=== PATIENT | female | born 1950 | race Caucasian/White ===

== ENCOUNTER → 2021-04-27 11:52 | Outpatient (CLI) | payer MEDICARE, SELFPAY ==
[2021-04-27 12:34] LABS: Add Manual Diff / Slide Review NO; Basophils Absolute Auto 0 /uL (0-100); Basophils Percent Auto 0.6 % (0-2); Eosinophils Absolute Auto 100 /uL (0-450); Eosinophils Percent Auto 2.2 % (2-4); Hematocrit 33.5 % (36-46); Lymphocytes Absolute Auto 2100 /uL (1100-4500); Lymphocytes Percent Auto 33.2 % (25-40); Mean Corpuscular HGB Conc 32.9 % (30-36); Mean Corpuscular Hemoglobin 26.4 PG (26-34); Mean Corpuscular Volume 80.3 fL (80-100); Monocytes Absolute Auto 400 /uL (0-900); Monocytes Percent Auto 6.5 % (3-14); Neutrophils Absolute Auto 3600 /uL (1500-7000); Neutrophils Percent Auto 57.5 % (50-75); Platelet Count 344 X10^3/uL (150-400); Red Blood Cell Count 4.17 X10^6/uL (4.0-5.2); Red Cell Distribution Width 16.1 % (11.6-14.8); White Blood Cell Count 6.4 X10^3/uL (4.5-11.0)
[2021-04-27 12:44] LABS: Hemoglobin A1C% w Est Avg Glu 5.7 % (4.0-6.0)
[2021-04-27 12:46] LABS: Alanine Aminotransferase 20 IU/L (<35); Albumin 4.2 g/dL (3.5-5.0); Albumin Globulin Ratio 1.2 (1.0-2.8); Alkaline Phosphatase 92 U/L (38-126); Aspartate Aminotransferase 29 IU/L (14-36); BUN Creatinine Ratio 21.7 (6-22); Bilirubin Total 1.1 mg/dL (0.2-1.3); Blood Urea Nitrogen 13 mg/dL (7-17); Calcium 9.7 mg/dL (8.4-10.2); Carbon Dioxide 25 mmol/L (22-32); Chloride 103 mmol/L (98-107); Cholesterol 249 mg/dL (140-199); Estimated Glomerular Filt Rate > 60.0 mL/min (>60); Globulin 3.6 g/dL (1.7-4.1); Glucose 121 mg/dL (80-110); HDL Cholesterol 60 mg/dL (40-60); HEMOLYSIS < 15 (0-50); LDL Cholesterol Calculated 157 mg/dL (<100); Potassium 4.1 mmol/L (3.4-5.1); Sodium 136 mmol/L (137-145); Total Protein 7.8 g/dL (6.3-8.2); Triglycerides 159 mg/dL (35-150)
[2021-04-27 13:01] LABS: Free T4, Direct Thyroxine 1.29 ng/dL (0.78-2.19)
[2021-04-27 13:15] LABS: Thyroid Stimulating Hormone 2.74 uIU/mL (0.47-4.68)
== END ==
PROVIDERS: PCP Family Medicine; Referring Provider Family Medicine; Visit Provider Family Medicine
DX: E03.9 Hypothyroidism, unspecified (principal); E11.9 Type 2 diabetes mellitus without complications; E78.5 Hyperlipidemia, unspecified; I10 Essential (primary) hypertension; Z76.89 Persons encountering health services in other specified circumstances
CPT/HCPCS: 36415; 80053; 80061; 83036; 84439; 84443; 85025

== ENCOUNTER 2021-07-09 20:55 | Emergency (ER) | payer MEDICARE, SELFPAY ==
[2021-07-09] VITALS (10 sets, daily range): BP systolic 141–212; BP diastolic 66–95; PULSE 73–87; RESP 12–26; TEMP 36.6; O2SAT 95–100
--- NOTE | 2021-07-09 21:09 | DI.RAD.S_ITS ---
PROCEDURE: XR CHEST 1V INDICATIONS: chest pain TECHNIQUE: One view of the chest was acquired. COMPARISON: None. FINDINGS: Surgical changes and devices: None. Lungs and pleura: Mildly increased interstitial reticular markings are seen. No focal infiltrate. No pleural effusions or pneumothorax. Mediastinum: Mediastinal contours appear normal. Heart size is normal. Bones and chest wall: No suspicious bony lesions. Overlying soft tissues appear unremarkable. IMPRESSION: No acute cardiopulmonary pathology. Likely chronic interstitial lung parenchymal disease. Dictated by: Bryan Caraballo M.D. on 07/09/2021 at 21:22 Approved by: Bryan Caraballo M.D. on 07/09/2021 at 21:24
[2021-07-09 21:14] LABS: Add Manual Diff / Slide Review NO; Basophils Absolute Auto 0 /uL (0-100); Basophils Percent Auto 0.3 % (0-2); Eosinophils Absolute Auto 100 /uL (0-450); Eosinophils Percent Auto 2.3 % (2-4); Hematocrit 35.7 % (36-46); Hemoglobin 11.8 g/dL (12.0-16.0); Lymphocytes Absolute Auto 2300 /uL (1100-4500); Lymphocytes Percent Auto 37.9 % (25-40); Mean Corpuscular HGB Conc 32.9 % (30-36); Mean Corpuscular Hemoglobin 25.9 PG (26-34); Mean Corpuscular Volume 78.9 fL (80-100); Monocytes Absolute Auto 500 /uL (0-900); Neutrophils Absolute Auto 3200 /uL (1500-7000); Neutrophils Percent Auto 51.5 % (50-75); Platelet Count 293 X10^3/uL (150-400); Red Blood Cell Count 4.53 X10^6/uL (4.0-5.2); Red Cell Distribution Width 17.4 % (11.6-14.8); White Blood Cell Count 6.2 X10^3/uL (4.5-11.0)
[2021-07-09 21:32] LABS: Alanine Aminotransferase 23 IU/L (<35); Albumin 4.4 g/dL (3.5-5.0); Albumin Globulin Ratio 1.2 (1.0-2.8); Alkaline Phosphatase 87 U/L (38-126); Aspartate Aminotransferase 32 IU/L (14-36); BUN Creatinine Ratio 17.6 (6-22); Blood Urea Nitrogen 12 mg/dL (7-17); Calcium 9.5 mg/dL (8.4-10.2); Carbon Dioxide 29 mmol/L (22-32); Chloride 100 mmol/L (98-107); Creatine Kinase 81 U/L (30-135); Estimated Glomerular Filt Rate > 60.0 mL/min (>60); Globulin 3.8 g/dL (1.7-4.1); Glucose 131 mg/dL (80-110); Lipase 78 U/L (23-300); Sodium 137 mmol/L (137-145); Total Protein 8.2 g/dL (6.3-8.2)
[2021-07-09 21:36] LABS: HEMOLYSIS 67 (0-50)
[2021-07-09 21:37] LABS: Potassium 4.4 mmol/L (3.4-5.1)
[2021-07-09 21:43] LABS: Troponin I < 0.012 ng/mL (0.01-0.034)
--- NOTE | 2021-07-09 22:59 | ED_ITS ---
HPI - Chest Pain General Chief Complaint: Chest Pain Stated Complaint: Chest pressure Time Seen by Provider: 07/09/21 21:00 Source: patient and EMS Mode of arrival: EMS History of Present Illness HPI narrative: 70-year-old woman who recently moved from [place] and is living with her adult children with diagnosis of early Alzheimer's, diabetes, hyperlipidemia, hypothyroidism pain. She denies any specific cardiac history. She states that she was sitting in her chair when all of a sudden she had 8/10 central chest pain//heaviness tightness as if there was a little child sitting on my chest without nausea or breathing difficulties. 911 was called she was given an aspirin only and by the time she was loaded into the back of the amb ulance her chest pain was 0. EKG was done and medics thought that she may have been in atrial fibrillation. Formal EKG in the emergency department has left axis deviation bundle-branch block and first-degree AV block with large P-waves she states that she has been in her usual state of health with no recent fevers, cough, chills, abdominal pain, chest pain, palpitations, orthopnea, dyspnea, lower extremity edema, diarrhea or dysuria. Related Data Home Medications Medication Instructions Recorded Confirmed ascorbic acid (vitamin C) 500 mg 500 mg PO DAILY 03/19/21 05/02/21 tablet cholecalciferol (vitamin D3) 25 25 mcg PO BID 03/19/21 05/02/21 mcg (1,000 unit) tablet cranberry 1,500 mg PO BID 03/19/21 05/02/21 levothyroxine 50 mcg tablet 50 mcg PO DAILY 03/19/21 05/02/21 lisinopril 20 mg tablet 20 mg PO DAILY 03/19/21 05/02/21 losartan 100 mg tablet 50 mg PO BID tab 03/19/21 05/02/21 magnesium 250 mg tablet 250 mg PO DAILY 03/19/21 05/02/21 metoprolol tartrate 100 mg tablet 50 mg PO BID tab 03/19/21 05/02/21 multivitamin 1 tab PO DAILY 03/19/21 05/02/21 omega-3 fatty acids PO 03/19/21 05/02/21 potassium chloride 20 mEq 20 meq PO DAILY 03/19/21 05/02/21 tablet,extended release Previous Rx's Medication Instructions Recorded furosemide 20 mg tablet 20 mg PO BID #180 tab 03/19/21 potassium chloride 10 mEq 10 meq PO DAILY #90 tab 03/19/21 tablet,extended release blood sugar diagnostic (Blood #100 ea 03/23/21 Glucose Test) blood-glucose meter #1 ea 03/23/21 lancets 33 gauge (BD Ultra Fine #100 ea 03/23/21 Lancets) metformin 1,000 mg tablet 1,000 mg PO BID #180 tab 03/23/21 pantoprazole 20 mg tablet,delayed 20 mg PO DAILY #90 tab 04/11/21 release oxybutynin chloride 5 mg 5 mg PO DAILY #90 tab 05/02/21 tablet,extended release 24 hr (Ditropan XL) pravastatin 20 mg tablet 20 mg PO BEDTIME #90 tab 05/02/21 amlodipine 10 mg tablet 10 mg PO DAILY #90 tab 06/04/21 memantine 10 mg tablet 10 mg PO BID #180 tab 06/04/21 glipizide 5 mg tablet, extended 5 mg PO DAILY #90 tab 06/14/21 release 24 hr citalopram 40 mg tablet 20 mg PO DAILY #90 tab 06/19/21 Allergies Allergy/AdvReac Type Severity Reaction Status Date / Time No Known Drug Allergies Allergy Verified 05/02/21 12:57 Review of Systems Review of Systems Narrative: Remainder of complete review of systems is otherwise unremarkable except for that included in the HPI. Patient History Medical History (Updated 07/10/21 @ 00:36 by Ifrah Mir MD) Diabetes Early onset Alzheimer's dementia HTN (hypertension) Hyperlipidemia Hypothyroidism Incontinence Sleep apnea Social History Smoking Status: Former smoker Tobacco: How many years used: 25 quit status: quit date established alcohol intake: former (Quit late ) substance use type: does not use Smoking Status: Former smoker Exam Narrative Exam Narrative: General: Morbidly obese, Healthy appearing, in no acute distress. HEENT: Moist mucous membranes, normal sclera with reactive pupils, Neck: No JVD, supple Respiratory: Lungs are clear to auscultation, no wheezing no rales no rhonchi. Full and symmetrical air movement Cardiac: Regular rate and rhythm no murmurs no bruits Abdomen: Obese,Soft, nontender, good bowel tones, no flank pain Skin: Warm and dry, no rashes Neurologic: Grossly neurologically intact with no obvious asymmetries or abnormalities Extremities: No trauma, well perfused, no lower extremity edema or chronic venous stasis changes Psych: Cooperative, appropriate insight and affect Initial Vital Signs Initial Vital Signs: Vital Signs Pulse Rate 79 07/09/21 21:01 Respiratory Rate 17 07/09/21 21:01 Pulse Oximetry 98 07/09/21 21:01 Course Orders Ordered: ED Orders 07/09/21 21:09 XR chest 1V Stat EKG-12 Lead Stat 07/09/21 21:10 Complete Blood Count AUTO DIFF Stat Comprehensive Metabolic Panel Stat Lipase Stat Troponin & CK Cardiac Panel Stat 07/09/21 23:14 Troponin I Stat Nitroglycerin (Nitroglycerin 0.4 Mg Sl Tab) 0.4 mg SL [id number] PRN PRN Reason: Chest Pain Last Admin: 07/09/21 23:59 Dose: 0.4 mg Documented by: Admin: 07/09/21 23:37 Dose: 0.4 mg Documented by: BINDU Vital Signs Vital signs: Vital Signs - 8 hr 07/09/21 21:01 07/09/21 21:09 07/09/21 21:30 Temperature 97.8 F Pulse Rate 79 87 84 Respiratory Rate 17 14 26 H Blood Pressure 174/74 H Pulse Oximetry 98 100 98 07/09/21 22:00 07/09/21 22:30 07/09/21 22:56 Temperature Pulse Rate 73 74 78 Respiratory Rate 14 15 13 Blood Pressure 141/66 H 197/81 H 197/81 H Pulse Oximetry 97 96 98 07/09/21 23:00 07/09/21 23:11 07/09/21 23:30 Temperature Pulse Rate 81 85 86 Respiratory Rate 17 16 23 Blood Pressure 212/95 H 182/76 H Pulse Oximetry 97 97 95 07/09/21 23:45 07/10/21 00:15 Temperature Pulse Rate 80 77 Respiratory Rate 12 20 Blood Pressure 165/71 H 132/60 Pulse Oximetry 96 97 MDM - Chest Pain Lab Data Result diagrams: 07/09/21 21:10 07/09/21 21:10 Labs: Lab Results 07/09/21 07/09/21 07/09/21 Range/Units 21:10 21:10 23:14 WBC 6.2 (4.5-11.0) X10^3/uL RBC 4.53 (4.0-5.2) X10^6/uL Hgb 11.8 L (12.0-16.0) g/dL Hct 35.7 L (36-46) % MCV 78.9 L (80-100) fL MCH 25.9 L (26-34) PG MCHC 32.9 (30-36) % RDW 17.4 H (11.6-14.8) % Plt Count 293 (150-400) X10^3/uL Neut % (Auto) 51.5 (50-75) % Lymph % (Auto) 37.9 (25-40) % Island % (Auto) 8.0 (3-14) % Eos % (Auto) 2.3 (2-4) % Baso % (Auto) 0.3 (0-2) % Neut # (Auto) 3200 (0748-5028) /uL Lymph # (Auto) 2300 (4157-0955) /uL Island # (Auto) 500 (0-900) /uL Eos # (Auto) 100 (0-450) /uL Baso # (Auto) 0 (0-100) /uL Sodium 137 (137-145) mmol/L Potassium 4.4 (3.4-5.1) mmol/L Chloride 100 (98-107) mmol/L Carbon Dioxide 29 (22-32) mmol/L BUN 12 (7-17) mg/dL Creatinine 0.68 (0.52-1.04) mg/dL Estimated GFR > 60.0 (>60) mL/min BUN/Creatinine Ratio 17.6 (6-22) Glucose 131 H (80-110) mg/dL Calcium 9.5 (8.4-10.2) mg/dL Total Bilirubin 1.0 (0.2-1.3) mg/dL AST 32 (14-36) IU/L ALT 23 (<35) IU/L Alkaline Phosphatase 87 (38-126) U/L Total Creatine Kinase 81 (30-135) U/L CK-MB (CK-2) TNP CK-MB (CK-2) Rel Index TNP Troponin I < 0.012 < 0.012 (0.01-0.034) ng/mL Total Protein 8.2 (6.3-8.2) g/dL Albumin 4.4 (3.5-5.0) g/dL Globulin 3.8 (1.7-4.1) g/dL Albumin/Globulin Ratio 1.2 (1.0-2.8) Lipase 78 (23-300) U/L Imaging Data Chest x-ray: Radiologist's Impression: FINDINGS:? ? Surgical changes and devices:? None.? ? Lungs and pleura:? Mildly increased interstitial reticular markings are seen.? N o focal infiltrate.? No pleural effusions or pneumothorax.? ? Mediastinum:? Mediastinal contours appear normal.? Heart size is normal.? ? Bones and chest wall:? No suspicious bony lesions.? Overlying soft tissues appear unremarkable.? ? IMPRESSION:? No acute cardiopulmonary pathology.? Likely chronic interstitial lung parenchymal disease. ? ? Dictated by: Bryan Caraballo M.D. on 07/09/2021 at 21:22? ?? ECG Data Interpretation: Sinus rhythm with first-degree block at a rate of 81 Left bundle-branch block No acute ischemic changes MDM Narrative Medical decision making narrative: 70-year-old woman with multiple risk factors for cardiac disease but no her Cardiac presentations had an episode of chest tightness while she was sitting in her recliner watching TV. She initially described as an 8/10 and it essentially resolved by the time medics arrived. Initial labs an EKG did not show significant pathology. Repeat troponin at 2:00 a.m. is equally unremarkable. At this time I do not suspect that this is acute coronary syndrome or a non STEMI. There is no evidence of infectious etiology or pulmonary embolism. She has remained pain free and quite comfortable as well as hemodynamically stable throughout her emergency room visit. Findings and co ncerns are reviewed with the patient and son and she is discharged home Discharge Plan Departure Patient Disposition: Home Clinical Impression: Atypical chest pain Instructions: DI for Atypical Chest Pain Activity Restrictions/Additional Instructions: Thank you for coming in this evening I did not find anything life-threatening to explain that episode of chest tightness/pressure that you experienced this evening. Specifically, I did not find any evidence of a heart attack, blood clot in your lungs, infection in your lungs or collapsed lung. It is safe for you to go home. Please continue all of your usual medications. I would recommend follow-up with her primary care physician in the near future. Prescriptions: No Action metformin 1,000 mg tablet 1,000 mg PO BID Qty: 180 RF: 1 (DME) blood-glucose meter Misc See Rx Instructions .ROUTE .MEDSUPPLY Qty: 1 RF: 0 (DME) lancets [BD Ultra Fine Lancets] 33 gauge misc See Rx Instructions .ROUTE .MEDSUPPLY Qty: 100 RF: 0 (DME) Blood Glucose Test Strip See Rx Instructions .ROUTE .MEDSUPPLY Qty: 100 RF: 0 pantoprazole 20 mg tablet,delayed release (DR/EC) 20 mg PO DAILY Qty: 90 RF: 2 amlodipine 10 mg tablet 10 mg PO DAILY Qty: 90 RF: 1 memantine 10 mg tablet 10 mg PO BID Qty: 180 RF: 1 glipizide 5 mg tablet extended release 24hr 5 mg PO DAILY Qty: 90 RF: 1 citalopram 40 mg tablet 20 mg PO DAILY Qty: 90 RF: 1 levothyroxine 50 mcg tablet 50 mcg PO DAILY RF: 0 Hold Instructions: Home Medication placed on hold at Doctor's office lisinopril 20 mg tablet 20 mg PO DAILY RF: 0 Hold Instructions: clarification needed potassium chloride 20 mEq tablet extended release 20 meq PO DAILY RF: 0 magnesium 250 mg tablet 250 mg PO DAILY RF: 0 metoprolol tartrate 100 mg tablet 50 mg PO BID RF: 0 losartan 100 mg tablet 50 mg PO BID RF: 0 multivitamin Tablet 1 tab PO DAILY RF: 0 ascorbic acid (vitamin C) 500 mg tablet 500 mg PO DAILY RF: 0 cholecalciferol (vitamin D3) 25 mcg (1,000 unit) tablet 25 mcg PO BID RF: 0 cranberry 1,500 mg PO BID RF: 0 omega-3 fatty acids PO RF: 0 furosemide 20 mg tablet 20 mg PO BID Qty: 180 RF: 1 Hold Instructions: Home Medication placed on hold at Doctor's office potassium chloride 10 mEq tablet extended release 10 meq PO DAILY Qty: 90 RF: 1 pravastatin 20 mg tablet 20 mg PO BEDTIME Qty: 90 RF: 3 oxybutynin chloride [Ditropan XL] 5 mg tablet extended release 24hr 5 mg PO DAILY Qty: 90 RF: 1 Referrals: Phu Canales, [Primary Care Provider] -
[2021-07-09] MEDS: NITROGLYCERIN 0.4 MG SL TAB SL ×2 (23:37→23:59)
[2021-07-09 23:50] LABS: Troponin I < 0.012 ng/mL (0.01-0.034)
[2021-07-10 00:15] VITALS: BP 132/60; PULSE 77; RESP 20; O2SAT 97
[2021-07-10 00:30] VITALS: BP 172/75; PULSE 60; RESP 12; O2SAT 96
== END 2021-07-10 00:40 | disposition home or self-care (01) ==
PROVIDERS: Emergency Provider Emergency Medicine; PCP Family Medicine
DX: R07.89 Other chest pain (principal)
CPT/HCPCS: 36415; 71045; 80053; 82550; 83690; 84484; 85025; 93005; 99284

== ENCOUNTER → 2021-11-07 11:10 | Outpatient (CLI) | payer MEDICARE, SELFPAY ==
[2021-11-07 13:05] LABS: Cholesterol 210 mg/dL (140-199); HDL Cholesterol 63 mg/dL (40-60); LDL Cholesterol Calculated 110 mg/dL (<100); Triglycerides 184 mg/dL (35-150)
== END ==
PROVIDERS: PCP Family Medicine; Referring Provider Family Medicine; Visit Provider Family Medicine
DX: E78.2 Mixed hyperlipidemia (principal)
CPT/HCPCS: 36415; 80061

== ENCOUNTER → 2022-03-04 09:58 | Outpatient (CLI) | payer MEDICARE, MEDICAID, SELFPAY ==
[2022-03-04 10:43] LABS: Appearance Urine UA CLOUDY; Bilirubin Urine UA NEGATIVE (NEGATIVE); Color Urine UA YELLOW; Glucose Urine UA NEGATIVE (Negative); Ketones Urine UA TRACE (NEGATIVE); Leukocyte Esterase Urine UA 3+ (NEGATIVE); Nitrite Urine UA POSITIVE (Negative); Occult Blood Urine UA 1+ (Negative); Protein Urine UA 1+ (Negative); Urobilinogen Urine UA 0.2 E.U./dL (0.2)
[2022-03-04 10:52] LABS: Bacteria Urine Many (>30); Culture Indicated Urine Specimen Cultured; RBC Urine 5-10/HPF (0-5/HPF); Squamous Epithelial Cell Urine 0-1 /HPF (0-5/HPF); WBC Urine 10-30/HPF (0-5/HPF)
[2022-03-04 11:05] LABS: Add Manual Diff / Slide Review NO; Basophils Absolute Auto 0 /uL (0-100); Basophils Percent Auto 0.7 % (0-2); Eosinophils Absolute Auto 200 /uL (0-450); Eosinophils Percent Auto 3.5 % (2-4); Hematocrit 37.1 % (36-46); Hemoglobin 12.8 g/dL (12.0-16.0); Lymphocytes Absolute Auto 2100 /uL (1100-4500); Lymphocytes Percent Auto 35.4 % (25-40); Mean Corpuscular HGB Conc 34.5 % (30-36); Mean Corpuscular Hemoglobin 29.2 PG (26-34); Mean Corpuscular Volume 84.7 fL (80-100); Monocytes Absolute Auto 400 /uL (0-900); Monocytes Percent Auto 7.3 % (3-14); Neutrophils Absolute Auto 3200 /uL (1500-7000); Neutrophils Percent Auto 53.1 % (50-75); Platelet Count 267 X10^3/uL (150-400); Red Blood Cell Count 4.37 X10^6/uL (4.0-5.2); Red Cell Distribution Width 14.4 % (11.6-14.8)
[2022-03-04 11:29] LABS: Creatinine Urine Random 121.3 mg/dL
[2022-03-04 11:30] LABS: Hemoglobin A1C% w Est Avg Glu 6.3 % (4.0-6.0)
[2022-03-04 11:31] LABS: Alanine Aminotransferase 22 IU/L (<35); Albumin 4.4 g/dL (3.5-5.0); Albumin Globulin Ratio 1.3 (1.0-2.8); Alkaline Phosphatase 87 U/L (38-126); Aspartate Aminotransferase 25 IU/L (14-36); BUN Creatinine Ratio 19.5 (6-22); Blood Urea Nitrogen 16 mg/dL (7-17); Calcium 9.4 mg/dL (8.4-10.2); Carbon Dioxide 26 mmol/L (22-32); Chloride 101 mmol/L (98-107); Cholesterol 194 mg/dL (140-199); Estimated Glomerular Filt Rate > 60 mL/min (>60); Globulin 3.5 g/dL (1.7-4.1); Glucose 149 mg/dL (80-110); HDL Cholesterol 51 mg/dL (40-60); HEMOLYSIS < 15 (0-50); LDL Cholesterol Calculated 110 mg/dL (<100); Potassium 4.3 mmol/L (3.4-5.1); Sodium 136 mmol/L (137-145); Total Protein 7.9 g/dL (6.3-8.2); Triglycerides 165 mg/dL (35-150)
[2022-03-04 11:33] LABS: Microalbumi Creatinin Ratio Ur 59.3 ug/mg CR (<30); Microalbumin Urine Random 7.2 mg/dL (0-1.6)
== END ==
PROVIDERS: PCP Family Medicine; Referring Provider Family Medicine; Visit Provider Family Medicine
DX: E11.9 Type 2 diabetes mellitus without complications (principal); E78.2 Mixed hyperlipidemia; I10 Essential (primary) hypertension; R30.0 Dysuria
CPT/HCPCS: 36415; 80053; 80061; 81001; 82043; 82570; 83036; 85025; 87077; 87086; 87186

== ENCOUNTER → 2022-03-12 14:36 | Outpatient (CLI) | payer MEDICARE, MEDICAID, SELFPAY | PROVIDERS: PCP Family Medicine; Referring Provider Internal Medicine Cardiovascular Disease; Visit Provider Internal Medicine Cardiovascular Disease | DX: I44.7 Left bundle-branch block, unspecified (principal) ==

== ENCOUNTER → 2022-03-12 14:48 | Outpatient (CLI) | payer MEDICARE, MEDICAID, SELFPAY ==
--- NOTE | 2022-03-12 | DI.ECHO.S_ITS ---
[facility] +---------+ [facility] +---------+ : : [address] : : : : [id number] : : : : Phone: [phone]+ Echocardiogram Report + + :Name: ANGELICA KUMAR Study Date: 03/12/2022 Height: 68 in : :[facility] ReadingLocation: Weight: 366 lb : : Gender: Female BSA: 2.6 m2 : :: 1950 Age: 71 yrs BP: 134/68 mmHg: :Reason For Study: LEFT BUNDLE-BRANCH BLOCK : :Ordering Physician: BENITEZ, : :ANILA Performed By: Aruna Lagunas : :Referring: ANILA RODRIGUEZ : + + Interpretation Summary Technically difficult study. Two IV attempts were made to use Definity without success. 1) Grossly normal size and systolic function (EF 55-60%). 2) Normal right ventricular size and function. 3) No significant valvluar abnormalities. 4) The right ventricular systolic pressure is estimated to be at least 39 mmHg based on an estimated right atrial pressure of 3 mm Hg. 5) No prior Echo available for comparison. Procedure: A two-dimensional transthoracic echocardiogram with color flow and Doppler was performed. The study quality was technically difficult. The study quality was technically limited. There is no prior echocardiogram noted for this patient. The patient was in sinus bradycardia with heart rates between 55-60 bpm during the exam. The patient had a bundle branch block rhythm during the exam. Left Ventricle: The left ventricle is grossly normal size. The left ventricular ejection fraction is grossly normal. Septal motion is consistent with conduction abnormality. Right Ventricle: The right ventricle is normal in size and function. Atria: The left atrial size is normal. Right atrial size is normal. There is no Doppler evidence for an interatrial shunt. Mitral Valve: The mitral valve is normal in structure and function. There is trace mitral regurgitation. Aortic Valve: The aortic valve opens well. There is no aortic valve stenosis. No aortic regurgitation is present. Tricuspid Valve: The tricuspid valve leaflets are thin and pliable. There is mild tricuspid regurgitation. The right ventricular systolic pressure is estimated to be at least 39 mmHg based on an estimated right atrial pressure of 3 mm Hg. Pulmonic Valve: The pulmonic valve is not well visualized. There is no pulmonic valvular regurgitation. Great Vessels: The aortic root is normal size. The dimensions of the ascending aorta are normal. The IVC is of normal diameter and collapses greater than 50% with a sniff. This suggests a low right atrial pressure of 3 mm Hg. Pericardium/ Pleura There is no pericardial effusion. There is no pleural effusion. MMode/2D Measurements & Calculations LVOT diam: 2.4 cm LA A2 area: 19.8 cm2 Ao root diam: 3.0 cm LA A4 area: 20.2 cm2 asc Aorta Diam: 3.5 cm LA length (vol): 5.5 cm Ao Arch Diam (Prox Trans): 3.1 cm LA vol: 62.1 ml LA vol index: 23.5 ml/m2 RA long axis: 4.7 cm RVD1 (basal): 3.9 cm RA area: 17.9 cm2 TAPSE: 2.4 cm RA vol: 57.7 ml RA : 21.9 ml/m2 IVC diam: 1.5 cm Doppler Measurements & Calculations Ao V2 max: 151.5 cm/sec LVOT Max Ritchie: 112.8 cm/sec Ao V2 mean: 119.6 cm/sec LV V1 max P.1 mmHg Ao max P.2 mmHg LV V1 VTI: 28.2 cm Ao mean P.1 mmHg JENNIFER(I,D): 3.2 cm2 Ao V2 VTI: 39.4 cm JENNIFER(V,D): 3.4 cm2 sev ratio: 0.72 JENNIFER indexed to BSA (cm^2/m^2): 1.2 MV E max ritchie: 84.4 cm/sec TR max ritchie: 299.3 cm/sec MV A max ritchie: 94.7 cm/sec TR max P.8 mmHg MV E/A: 0.89 PA V2 max: 125.2 cm/sec Med Peak E' Ritchie: 10.0 cm/sec PA V2 mean: 85.4 cm/sec E/E' med: 8.4 PA mean P.3 mmHg Lat Peak E' Ritchie: 14.0 cm/sec PA pr(Accel): 36.2 mmHg E/E' lat: 6.0 E/e' average: 7.2 MV dec time: 0.32 sec SV(LVOT): 127.7 ml Reading Physician:11:02 AM
== END ==
PROVIDERS: PCP Family Medicine; Referring Provider Internal Medicine Cardiovascular Disease; Visit Provider Internal Medicine Cardiovascular Disease
DX: I44.7 Left bundle-branch block, unspecified (principal)
CPT/HCPCS: 93306

== ENCOUNTER → 2022-04-11 12:10 | Outpatient (CLI) | payer MEDICARE, MEDICAID, SELFPAY ==
[2022-04-11 12:44] LABS: Appearance Urine UA SL CLOUDY; Bilirubin Urine UA NEGATIVE (NEGATIVE); Color Urine UA YELLOW; Glucose Urine UA NEGATIVE (Negative); Ketones Urine UA NEGATIVE (NEGATIVE); Leukocyte Esterase Urine UA 3+ (NEGATIVE); Nitrite Urine UA POSITIVE (Negative); Occult Blood Urine UA 1+ (Negative); Protein Urine UA NEGATIVE (Negative); Specific Gravity Urine UA <=1.005 (1.000-1.035); Urobilinogen Urine UA 0.2 E.U./dL (0.2)
[2022-04-11 13:18] LABS: pH Urine UA 6.5 (4.5-8.0)
[2022-04-11 13:19] LABS: Bacteria Urine Many (>30); Culture Indicated Urine Specimen Cultured; RBC Urine 5-10/HPF (0-5/HPF); Squamous Epithelial Cell Urine 1-5 /HPF (0-5/HPF); WBC Urine 30-100/HPF (0-5/HPF)
== END ==
PROVIDERS: PCP Family Medicine; Referring Provider Family Medicine; Visit Provider Family Medicine
DX: R39.9 Unspecified symptoms and signs involving the genitourinary system (principal)
CPT/HCPCS: 81001; 87077; 87086; 87186

== ENCOUNTER 2022-05-22 12:27 | Emergency (ER) | payer MEDICARE, MEDICAID, SELFPAY ==
[2022-05-22 12:38] VITALS: BP 149/65; PULSE 65; RESP 16; TEMP 36.4; O2SAT 96; BMI 58.5
[2022-05-22 14:46] VITALS: BP 143/65; PULSE 49; RESP 20; O2SAT 97
--- NOTE | 2022-05-22 14:47 | ED_ITS ---
HPI - Skin/Abscess/Foreign Bdy <Nida Melisa Chang, [facility] - Last Filed: 05/22/22 18:58> General Chief complaint: Skin/Abscess/Foreign Body Stated complaint: sore on Rt leg/Diabetic Time Seen by Provider: 05/22/22 14:37 Source: patient Mode of arrival: Ambulatory History of Present Illness HPI narrative: This is a 71-year-old diabetic and obese female who presents to the emergency department with a wound on her right lower leg which has been getting worse with erythema and drainage over the last week, and a persistent UTI which has been treated with 2 rounds of Bactrim. Prior urine culture shows sensitivity sulfa trimethoprim. Patient's family members state that her blood sugars have been fairly under control, she uses nystatin for erythematous areas in folds and does not have any that are problematic at this time. She has been taking her other medications as prescribed, denies any fever or chills, denies any weakness or illness sensation. She denies any nausea vomiting or difficulty walking. [facility] CLIA ID [id number] [address] [place] [address] RUN DATE: 05/22/22 Specimen Inquiry PAGE 1 RUN TIME: 1449 Name: Jessie Palacios Age/Sex: 71/F Attend Dr: Phu Canales D.O. Unit#: [id number] : 1950Location: LAB Re04/11/22 Disch: Status: REG CLI SPEC #: [id number] ISHAN: 04/11/22 STATUS: COMP REQ #: [id number] SPDESC: RECD: 04/11/[address]: Phu Canales D.O. SOURCE: UA Reflex ENTR: 04/11/22-[address]: FAX TO: ORDERED: URINE CULTURE Procedure Result Verified Site Urine Culture Final 04/13/22813 Organism 1 Escherichia coli [place] Count >100,000 CFU/ml Action to follow No Further Workup 1. Escherichia coli M.I.C. RX --------- --- * Amoxicillin/Clavulanate <=2 S * Ampicillin <=2 S * Ampicillin/Sulbactam <=2 S * Cefazolin <=4 S * Cefepime <=1 S * Ceftazidime <=1 S * Ceftriaxone <=1 S * Ciprofloxacin <=0.25 S * Ertapenem <=0.5 S * Gentamicin <=1 S * Imipenem <=0.25 S * Levofloxacin <=0.12 S * Nitrofurantoin <=16 S * Tobramycin <=1 S * Trimethoprim/Sulfamethoxazole <=20 S * Piperacillin/Tazobactam <=4 S Related Data Home Medications Medication Instructions Recorded Confirmed ascorbic acid (vitamin C) 500 mg 500 mg PO DAILY 03/19/21 11/14/21 tablet cholecalciferol (vitamin D3) 25 25 mcg PO BID 03/19/21 11/14/21 mcg (1,000 unit) tablet cranberry 1,500 mg PO BID 03/19/21 11/14/21 magnesium 250 mg tablet 250 mg PO DAILY 03/19/21 11/14/21 multivitamin 1 tab PO DAILY 03/19/21 11/14/21 Previous Rx's Medication Instructions Recorded pravastatin 20 mg tablet 20 mg PO BEDTIME #90 tabs 05/02/21 amlodipine 10 mg tablet 10 mg PO DAILY #90 tabs 06/04/21 nitroglycerin 0.4 mg sublingual 0.4 mg sublingual Q5M PRN chest 07/18/21 tablet pain #20 tabs gentamicin 0.3 % eye drops 2 drp EYE-LEFT TID #5 mL 08/14/21 ketoconazole 2 % topical cream 1 applic topical BID #60 grams 08/14/21 blood sugar diagnostic (Blood #100 ea 08/17/21 Glucose Test strips) blood-glucose meter #1 ea 08/17/21 lancets 33 gauge (BD Ultra Fine #100 ea 08/17/21 Lancets) benzonatate 100 mg capsule 100 mg PO BID PRN cough #10 caps 08/29/21 metformin 1,000 mg tablet 1,000 mg PO BID #180 tabs 09/21/21 furosemide 20 mg tablet 20 mg PO BID #180 tabs 11/13/21 lisinopril 20 mg tablet 20 mg PO BID #180 tabs 11/15/21 potassium chloride 10 mEq 10 meq PO DAILY #90 tabs 11/19/21 tablet,extended release oxybutynin chloride 5 mg 5 mg PO DAILY #90 tabs 11/20/21 tablet,extended release 24 hr (Ditropan XL) levothyroxine 50 mcg tablet 50 mcg PO DAILY #90 tabs 11/28/21 memantine 10 mg tablet 10 mg PO BID #180 tabs 12/20/21 Accessibility Ramp #1 ea 12/27/21 omega-3 fatty acids 1,250 mg 1,250 mg PO DAILY #90 caps 01/01/22 capsule citalopram 40 mg tablet 40 mg PO DAILY #90 tabs 02/08/22 losartan 100 mg tablet 50 mg PO BID #180 tabs 02/08/22 metoprolol tartrate 100 mg tablet 50 mg PO BID #180 tabs 02/08/22 sulfamethoxazole 800 1 tab PO BID #14 tabs 04/15/22 mg-trimethoprim 160 mg tablet glipizide 5 mg tablet, extended See Rx Instructions .Route 05/07/22 release 24 hr .COMPLEX #90 tabs pantoprazole 20 mg tablet,delayed See Rx Instructions .Route 05/07/22 release .COMPLEX #90 tabs nystatin 100,000 unit/gram topical 1 applic topical BID rash in 05/21/22 powder abdominal skin folds #60 grams cephalexin 500 mg capsule 500 mg PO QID 7 days #28 caps 05/22/22 doxycycline hyclate 100 mg capsule 100 mg PO BID 10 days #20 caps 05/22/22 mupirocin 2 % topical ointment 1 applic topical BID wound #15 05/22/22 grams Allergies Allergy/AdvReac Type Severity Reaction Status Date / Time No Known Drug Allergies Allergy Verified 11/14/21 16:57 Review of Systems <HEVER Vizcarra - Last Filed: 05/22/22 18:58> Review of Systems Narrative: Review of systems is negative for acute abnormalities unless otherwise noted in HPI Patient History <HEVER Vizcarra - Last Filed: 05/22/22 18:58> Medical History Conjunctivitis Diabetes Diabetic foot ulcer associated with diabetes mellitus due to underlying condition Dysuria Early onset Alzheimer's dementia HTN (hypertension) Hyperlipidemia Hypothyroidism Incontinence Sleep apnea Tinea Social History Smoking Status: Former smoker Tobacco: How many years used: 25 quit status: quit date established alcohol intake: former substance use type: does not use Smoking Status: Former smoker Substance Use Type: does not use Exam <HEVER Vizcarra - Last Filed: 05/22/22 18:58> Narrative Exam Narrative: Reviewed vitals signs and nursing notes. General: cooperative, comfortable, in no acute distress, well groomed, obese, sitting on walker, difficult for her to move around, pleasant and cooperative HEENT: symmetrical facial expressions, moist mucous membranes Cardiovascular: regular rate and rhythm, right-sided lower peripheral edema with surrounding erythema related to infected wound, warm extremities Respiratory: normal effort, able to speak in complete sentences, without wheezing, stridor, or abnormal breath sounds. No retractions or tachypnea. MSK: moves all extremities, neurovascularly intact, no weakness, normal tone, lymphedema to lower extremity, wound on medial lower right leg above medial malleolus approximately 3 in with surrounding erythema, warmth and tenderness, some discharge is coming from the wound and sent for culture. There is a scab over the wound. Skin: brisk capillary refill, without pallor or erythema Neuro: normal speech and cognition, A&O x3, ambulatory, clear speech Psych: mental status is grossly normal, congruent mood, normal affect, pleasant and cooperative Initial Vital Signs Initial Vital Signs: Vital Signs Temperature 97.5 F L 05/22/22 12:38 Pulse Rate 65 05/22/22 12:38 Respiratory Rate 16 05/22/22 12:38 Blood Pressure 149/65 H 05/22/22 12:38 Pulse Oximetry 96 05/22/22 12:38 Oxygen Delivery Method 05/22/22 12:38 <Yajaira Coleman DO - Last Filed: 05/23/22 08:13> Initial Vital Signs Initial Vital Signs: Vital Signs Temperature 97.5 F L 05/22/22 12:38 Pulse Rate 65 05/22/22 12:38 Respiratory Rate 16 05/22/22 12:38 Blood Pressure 149/65 H 05/22/22 12:38 Pulse Oximetry 96 05/22/22 12:38 Oxygen Delivery Method 05/22/22 12:38 Course <HEVER Vizcarra - Last Filed: 05/22/22 18:58> Orders Ordered: Discontinued Medications Cephalexin HCl (Cephalexin 250 Mg Capsule) 500 mg PO NOW ONE Stop: 05/22/22 15:34 Last Admin: 05/22/22 16:09 Dose: 500 mg Documented By: AMILCAR Doxycycline Hyclate (Doxycycline Hyclate 100 Mg Tablet) 100 mg PO NOW ONE Stop: 05/22/22 15:34 Last Admin: 05/22/22 16:09 Dose: 100 mg Documented By: AMILCAR Vital Signs Vital signs: Vital Signs - 8 hr 05/22/22 12:38 05/22/22 14:46 Temperature 97.5 F L Pulse Rate 65 49 L Respiratory Rate 16 20 Blood Pressure 149/65 H 143/65 H Pulse Oximetry 96 97 Oxygen Delivery Method Room Air Room Air <Yajaira Coleman DO - Last Filed: 05/23/22 08:13> Orders Ordered: Discontinued Medications Cephalexin HCl (Cephalexin 250 Mg Capsule) 500 mg PO NOW ONE Stop: 05/22/22 15:34 Last Admin: 05/22/22 16:09 Dose: 500 mg Documented By: AMILCAR Doxycycline Hyclate (Doxycycline Hyclate 100 Mg Tablet) 100 mg PO NOW ONE Stop: 05/22/22 15:34 Last Admin: 05/22/22 16:09 Dose: 100 mg Documented By: AMILCAR Vital Signs Vital signs: Vital Signs - 8 hr 05/22/22 12:38 05/22/22 14:46 Temperature 97.5 F L Pulse Rate 65 49 L Respiratory Rate 16 20 Blood Pressure 149/65 H 143/65 H Pulse Oximetry 96 97 Oxygen Delivery Method Room Air Room Air MDM - Skin/Abscess/Foreign Bdy <HEVER Vizcarra - Last Filed: 05/22/22 18:58> Lab Data Lab results narrative: Name: Jessie Palacios Age/Sex: 71/F Attend Dr: Phu Canales D.O. Unit#: [id number] : 1950Location: LAB Re04/11/22 Disch: Status: REG CLI SPEC #: [id number] ISHAN: 04/11/22 STATUS: COMP REQ #: [id number] SPDESC: RECD: 04/11/[address]: Phu Canales D.O. SOURCE: UA Reflex ENTR: 04/11/22-1320 [facility] : FAX TO: ORDERED: URINE CULTURE Procedure Result Verified Site Urine Culture Final 04/13/22813 Organism 1 Escherichia coli [place] Count >100,000 CFU/ml Action to follow No Further Workup 1. Escherichia coli M.I.C. RX --------- --- * Amoxicillin/Clavulanate <=2 S * Ampicillin <=2 S * Ampicillin/Sulbactam <=2 S * Cefazolin <=4 S * Cefepime <=1 S * Ceftazidime <=1 S * Ceftriaxone <=1 S * Ciprofloxacin <=0.25 S * Ertapenem <=0.5 S * Gentamicin <=1 S * Imipenem <=0.25 S * Levofloxacin <=0.12 S * Nitrofurantoin <=16 S * Tobramycin <=1 S * Trimethoprim/Sulfamethoxazole <=20 S * Piperacillin/Tazobactam <=4 S Labs: Urine Dip Bedside Urine Glucose Negative Bedside Urine Bilirubin - Negative Bedside Urine Ketone - Negative Urine Specific Ozan 1.020 Bedside Urine Occult Blood +/- Bedside Urine Protein - Negative Bedside Urine Urobilinogen 1+ 2mg Bedside Urine Nitrite + Positive Bedside Urine Leukocytes + 70 Esterase MDM Narrative Medical decision making narrative: This is a 71-year-old female presents to the emergency department for evaluation of a wound which she noticed 1 week ago on her right lower leg with a history of obesity, diabetes, diabetic foot ulcers, recurrent UTIs, early-onset Alzheimer's dementia, hypothyroidism, hypertension, hyperlipidemia and sleep apnea. Today on exam it appears that she has a wound with some purulence discharge, this is covered with a scab and no fluctuance or suspicion for abscess, there surrounding cellulitis with erythema up to the mid calf. Patient denies any systemic symptoms of illness including fever, weakness, fatigue, chills or nausea. Her urine was rechecked since she has had 2 courses of Bactrim over the last month for recurrent UTIs. Her urine culture shows full susceptibility and patient denies any symptoms. Her UA today shows acute cystitis recurrence with positive nitrates, blood, leukocyte esterase, wbc's and bacteria, this was sent for culture. Wound culture was obtained as well. She was treated today with doxycycline b.i.d. for the next 10 days as well as Keflex q.i.d. for the next 7 days to cover for cellulitis, recurrent cystitis with shown susceptibility to cephalosporins. Patient states she will follow-up with her PCP in 1 week for urine recheck and attempt to make an appointment at the wound care clinic where she received her previous wound care. She will follow-up with her primary care provider and return for any new or worsening symptoms including fever, fatigue, erythema which is spreading up her leg or other symptom. Patient is appropriate and amenable to discharge home. Vital signs are stable on repeat examination is unremarkable. Patient has been informed of results. Patient has been given strict return to ER precautions for any new or worsening symptoms. Patient understands to follow up closely with outpatient providers as instructed. Patient understands plan and agrees to discharge home. All questions and concerns answered at this time. <Yajaira Colmean, DO - Last Filed: 05/23/22 08:13> Lab Data Labs: Urine Dip Bedside Urine Glucose Negative Bedside Urine Bilirubin - Negative Bedside Urine Ketone - Negative Urine Specific [place]zan 1.020 Bedside Urine Occult Blood +/- Bedside Urine Protein - Negative Bedside Urine Urobilinogen 1+ 2mg Bedside Urine Nitrite + Positive Bedside Urine Leukocytes + 70 Esterase Discharge Plan Departure Patient Disposition: Home Clinical Impression: Acute recurrent cystitis, Diabetic ulcer of ankle Cellulitis Qualifiers: Site of cellulitis: extremity Site of cellulitis of extremity: lower extremity Laterality: right Qualified Code(s): L03.115 - Cellulitis of right lower limb Instructions: Diabetic Foot Ulcer, Acute Cystitis, DI for Wound Infection, Diabetes and Foot Care Activity Restrictions/Additional Instructions: *You have been diagnosed with a recurrent bladder infection and antibiotic for this is Keflex 4 times a day for 7 days, please retest at Dr. Canales's or at the walk-in clinic after your antibiotic is complete. Please use the mupirocin ointment, you can mitigate the swelling in her lower extremity with an Ki ban dage, please return to the emergency department for any new or worsening symptoms, fever, chills, spreading redness up her leg. Please follow-up with Dr. Canales for a wound care referral or call the wound care clinic and schedule another appointment. Please follow-up as needed, elevate your legs as much as possible, take your antibiotics as prescribed, and return for worsening condition. I hope you feel better soon. *What to do: *Please continue to take your regular medications as directed. [ x] New medication prescriptions sent to your pharmacy: [ [facility] [ ] New medication written as a paper prescription [ ] No new medications given *Please follow up with your primary care provider in 2-3 days, call for an appointment. Let them know you were seen in the Emergency Department and that we asked that you be seen for follow-up. We will electronically transmit a record of today's note if your PCP is in our system *If you do not have a primary care provider please contact [phone] to establish care with one of the [facility] primary care providers. *Return to Emergency Department if you should have any new, worsening, or concerning symptoms, such as [fever greater than 101F, chills, worsening pain, persistent vomiting or other bothersome symptoms]. Prescriptions: New cephalexin 500 mg capsule 500 mg PO QID 7 Days Qty: 28 0RF doxycycline hyclate 100 mg capsule 100 mg PO BID 10 Days Qty: 20 0RF mupirocin 2 % ointment 1 applic topical BID Qty: 15 0RF No Action amlodipine 10 mg tablet 10 mg PO DAILY Qty: 90 1RF (DME) Blood Glucose Test Strip See Rx Instructions .ROUTE .MEDSUPPLY Qty: 100 7RF Rx Instructions: Use to test blood glucose twice daily. (DME) lancets [BD Ultra Fine Lancets] 33 gauge misc See Rx Instructions .ROUTE .MEDSUPPLY Qty: 100 7RF Rx Instructions: Use to test blood glucose twice daily (DME) blood-glucose meter Misc See Rx Instructions .ROUTE .MEDSUPPLY Qty: 1 0RF Rx Instructions: Use to test blood glucose BID benzonatate 100 mg capsule 100 mg PO BID PRN (Reason: cough) Qty: 10 0RF metformin 1,000 mg tablet 1,000 mg PO BID Qty: 180 1RF Rx Instructions: Take with breakfast and dinner furosemide 20 mg tablet 20 mg PO BID Qty: 180 1RF Hold Instructions: Home Medication placed on hold at Doctor's office lisinopril 20 mg tablet 20 mg PO BID Qty: 180 3RF potassium chloride 10 mEq tablet extended release 10 meq PO DAILY Qty: 90 1RF oxybutynin chloride [Ditropan XL] 5 mg tablet extended release 24hr 5 mg PO DAILY Qty: 90 1RF levothyroxine 50 mcg tablet 50 mcg PO DAILY Qty: 90 0RF Hold Instructions: Home Medication placed on hold at Doctor's office memantine 10 mg tablet 10 mg PO BID Qty: 180 1RF (DME) Accessibility Ramp See Rx Instructions .Route .MEDSUPPLY Qty: 1 0RF Rx Instructions: Please provide accommodations for safe and proper access. omega-3 fatty acids 1,250 mg capsule 1,250 mg PO DAILY Qty: 90 3RF citalopram 40 mg tablet 40 mg PO DAILY Qty: 90 4RF losartan 100 mg tablet 50 mg PO BID Qty: 180 4RF metoprolol tartrate 100 mg tablet 50 mg PO BID Qty: 180 4RF sulfamethoxazole-trimethoprim 800-160 mg tablet 1 tab PO BID Qty: 14 0RF glipizide 5 mg tablet extended release 24hr See Rx Instructions .ROUTE .COMPLEX Qty: 90 1RF Dose Instruction: TAKE 1 TABLET BY MOUTH EVERY DAY Rx Instructions: TAKE 1 TABLET BY MOUTH EVERY DAY pantoprazole 20 mg tablet,delayed release (DR/EC) See Rx Instructions .ROUTE .COMPLEX Qty: 90 1RF Dose Instruction: TAKE 1 TABLET BY MOUTH EVERY DAY Rx Instructions: TAKE 1 TABLET BY MOUTH EVERY DAY nystatin 100,000 unit/gram powder 1 applic topical BID Qty: 60 1RF Rx Instructions: After washing and completing drying skin folds, apply powder to skin folds BID magnesium 250 mg tablet 250 mg PO DAILY multivitamin Tablet 1 tab PO DAILY ascorbic acid (vitamin C) 500 mg tablet 500 mg PO DAILY cholecalciferol (vitamin D3) 25 mcg (1,000 unit) tablet 25 mcg PO BID cranberry 1,500 mg PO BID nitroglycerin 0.4 mg tablet, sublingual 0.4 mg sublingual Q5M PRN (Reason: chest pain) Qty: 20 3RF Rx Instructions: do not exceed 3 doses per episode pravastatin 20 mg tablet 20 mg PO BEDTIME Qty: 90 3RF ketoconazole 2 % cream 1 applic topical BID Qty: 60 3RF gentamicin 0.3 % drops 2 drp EYE-LEFT TID Qty: 5 0RF Referrals: Phu Canales DO [Primary Care Provider] - Visit Report Forms: Patient Portal/API <Yajaira Coleman DO - Last Filed: 05/23/22 08:13> Cosign ED Attending Cosignature Attestation: I was immediately available in the department for consultation. Documentation has been reviewed. I agree with assessment and plan.
[2022-05-22] MEDS: cephALEXin 250 MG CAPSULE 500 MG PO (16:09)
[2022-05-22] MEDS: DOXYCYCLINE HYCLATE 100 MG TABLET PO (16:09)
== END 2022-05-22 16:18 | disposition home or self-care (01) ==
PROVIDERS: Emergency Provider Nurse Practitioner Critical Care Medicine; Family Provider Family Medicine; PCP Family Medicine
DX: E11.622 Type 2 diabetes mellitus with other skin ulcer (principal); L03.115 Cellulitis of right lower limb; N30.00 Acute cystitis without hematuria
CPT/HCPCS: 81003; 87070; 87075; 87077; 87147; 87186; 87205; 99283

== ENCOUNTER 2022-05-26 10:33 | Emergency (ER) | payer MEDICARE, MEDICAID, SELFPAY ==
[2022-05-26 10:47] VITALS: BP 159/68; PULSE 60; RESP 18; TEMP 36.9; O2SAT 95; BMI 58.5
--- NOTE | 2022-05-26 11:15 | ED.WOUNDLAC ---
HPI - Wound/Laceration General Chief Complaint: Wound/Laceration Stated Complaint: increased redness history of open wound Time Seen by Provider: 05/26/22 10:51 Source: patient and family Mode of arrival: Ambulatory Limitations: no limitations History of Present Illness HPI narrative: Patient is a 71-year-old female. Does have a history of dementia. Was seen here in the emergency department a couple days ago. Was diagnosed with a cellulitis/diabetic ulcer and also urinary tract infection. Has on Keflex and doxycycline and also mupirocin ointment. They were told that if the redness worsens that she needs to return to the ER. She is here with her family stating that they think that the redness around the wound is worsening. The patient states she feels okay. Not having any discomfort. Has been taking the antibiotics as directed. Related Data Home Medications Medication Instructions Recorded Confirmed ascorbic acid (vitamin C) 500 mg 500 mg PO DAILY 03/19/21 11/14/21 tablet cholecalciferol (vitamin D3) 25 25 mcg PO BID 03/19/21 11/14/21 mcg (1,000 unit) tablet cranberry 1,500 mg PO BID 03/19/21 11/14/21 magnesium 250 mg tablet 250 mg PO DAILY 03/19/21 11/14/21 multivitamin 1 tab PO DAILY 03/19/21 11/14/21 Previous Rx's Medication Instructions Recorded pravastatin 20 mg tablet 20 mg PO BEDTIME #90 tabs 05/02/21 amlodipine 10 mg tablet 10 mg PO DAILY #90 tabs 06/04/21 nitroglycerin 0.4 mg sublingual 0.4 mg sublingual Q5M PRN chest 07/18/21 tablet pain #20 tabs gentamicin 0.3 % eye drops 2 drp EYE-LEFT TID #5 mL 08/14/21 ketoconazole 2 % topical cream 1 applic topical BID #60 grams 08/14/21 blood sugar diagnostic (Blood #100 ea 08/17/21 Glucose Test strips) blood-glucose meter #1 ea 08/17/21 lancets 33 gauge (BD Ultra Fine #100 ea 08/17/21 Lancets) benzonatate 100 mg capsule 100 mg PO BID PRN cough #10 caps 08/29/21 metformin 1,000 mg tablet 1,000 mg PO BID #180 tabs 09/21/21 furosemide 20 mg tablet 20 mg PO BID #180 tabs 11/13/21 lisinopril 20 mg tablet 20 mg PO BID #180 tabs 11/15/21 potassium chloride 10 mEq 10 meq PO DAILY #90 tabs 11/19/21 tablet,extended release oxybutynin chloride 5 mg 5 mg PO DAILY #90 tabs 11/20/21 tablet,extended release 24 hr (Ditropan XL) levothyroxine 50 mcg tablet 50 mcg PO DAILY #90 tabs 11/28/21 memantine 10 mg tablet 10 mg PO BID #180 tabs 12/20/21 Accessibility Ramp #1 ea 12/27/21 omega-3 fatty acids 1,250 mg 1,250 mg PO DAILY #90 caps 01/01/22 capsule citalopram 40 mg tablet 40 mg PO DAILY #90 tabs 02/08/22 losartan 100 mg tablet 50 mg PO BID #180 tabs 02/08/22 metoprolol tartrate 100 mg tablet 50 mg PO BID #180 tabs 02/08/22 sulfamethoxazole 800 1 tab PO BID #14 tabs 04/15/22 mg-trimethoprim 160 mg tablet glipizide 5 mg tablet, extended See Rx Instructions .Route 05/07/22 release 24 hr .COMPLEX #90 tabs pantoprazole 20 mg tablet,delayed See Rx Instructions .Route 05/07/22 release .COMPLEX #90 tabs nystatin 100,000 unit/gram topical 1 applic topical BID rash in 05/21/22 powder abdominal skin folds #60 grams cephalexin 500 mg capsule 500 mg PO QID 7 days #28 caps 05/22/22 doxycycline hyclate 100 mg capsule 100 mg PO BID 10 days #20 caps 05/22/22 mupirocin 2 % topical ointment 1 applic topical BID wound #15 05/22/22 grams Allergies Allergy/AdvReac Type Severity Reaction Status Date / Time No Known Drug Allergies Allergy Verified 05/26/22 10:50 Review of Systems Constitutional Constitutional: Reports system reviewed and no additional complaints, except as documented Gastrointestinal Gastrointestinal: Reports system reviewed and no additional complaints, except as documented Integumentary/Breasts Skin/Breast: Reports system reviewed and no additional complaints, except as documented Neurologic Neurologic: Reports system reviewed and no additional complaints, except as documented Hematologic/Lymphatic On Anticoagulants: No Patient History Medical History Conjunctivitis Diabetes Diabetic foot ulcer associated with diabetes mellitus due to underlying condition Dysuria Early onset Alzheimer's dementia HTN (hypertension) Hyperlipidemia Hypothyroidism Incontinence Sleep apnea Tinea Social History Smoking Status: Former smoker Tobacco: How many years used: 25 quit status: quit date established alcohol intake: former substance use type: does not use Smoking Status: Former smoker Substance Use Type: does not use Exam Initial Vital Signs Initial Vital Signs: Vital Signs Temperature 98.5 F 05/26/22 10:47 Pulse Rate 60 05/26/22 10:47 Respiratory Rate 18 05/26/22 10:47 Blood Pressure 159/68 H 05/26/22 10:47 Pulse Oximetry 95 05/26/22 10:47 Oxygen Delivery Method 05/26/22 10:47 Const General: cooperative and comfortable Skin Other: Patient does a 2 cm x 2 cm round superficial ulceration to the medial aspect of the right mid tibia. There is an area of surrounding erythema to this. There is no drainage from the area. No fluctuance. Patient also has approximately a palm size area of redness on the anterior aspects of both shins. Patient also has what appeared to be healing ulcers at the base of bilateral great toes on the plantar aspect of the feet. No surrounding erythema. Neuro General: patient alert and patient awake Extrem Other: Patient does have large bilateral lower extremities that do not appear to be edema but more weight related Course Vital Signs Vital signs: Vital Signs - 8 hr 05/26/22 10:47 Temperature 98.5 F Pulse Rate 60 Respiratory Rate 18 Blood Pressure 159/68 H Pulse Oximetry 95 Oxygen Delivery Method Room Air MDM - Wound/Laceration MDM Narrative Medical decision making narrative: Patient is nontoxic. The ulceration on her right lower leg appears well. Review of the cultures shows that the current antibiotics that she is on should be appropriate for this infection and also her urinary tract infection. I did provide reassurance to the patient's family. I feel that the redness on the anterior aspects of both of her shins is most likely related to venous stasis and a large her legs are and not cellulitis/dermatitis. Will have the patient continue to take her current antibiotic regimen. There is no indication for admission to the hospital today. The redness around the area of ulceration was marked with a skin marker and they will return if this worsens. Discharge Plan Departure Patient Disposition: Home Clinical Impression: Cellulitis Instructions: DI for Wound Infection Activity Restrictions/Additional Instructions: Review of the cultures taken from a couple days ago show that the current antibiotic regimen is appropriate. I do recommend that she shower like normal. Recommend that she contact her primary doctor for a follow-up. Return to the emergency department for any new or worsening symptoms. Prescriptions: No Action amlodipine 10 mg tablet 10 mg PO DAILY Qty: 90 1RF (DME) Blood Glucose Test Strip See Rx Instructions .ROUTE .MEDSUPPLY Qty: 100 7RF Rx Instructions: Use to test blood glucose twice daily. (DME) lancets [BD Ultra Fine Lancets] 33 gauge misc See Rx Instructions .ROUTE .MEDSUPPLY Qty: 100 7RF Rx Instructions: Use to test blood glucose twice daily (DME) blood-glucose meter Misc See Rx Instructions .ROUTE .MEDSUPPLY Qty: 1 0RF Rx Instructions: Use to test blood glucose BID benzonatate 100 mg capsule 100 mg PO BID PRN (Reason: cough) Qty: 10 0RF metformin 1,000 mg tablet 1,000 mg PO BID Qty: 180 1RF Rx Instructions: Take with breakfast and dinner furosemide 20 mg tablet 20 mg PO BID Qty: 180 1RF Hold Instructions: Home Medication placed on hold at Doctor's office lisinopril 20 mg tablet 20 mg PO BID Qty: 180 3RF potassium chloride 10 mEq tablet extended release 10 meq PO DAILY Qty: 90 1RF oxybutynin chloride [Ditropan XL] 5 mg tablet extended release 24hr 5 mg PO DAILY Qty: 90 1RF levothyroxine 50 mcg tablet 50 mcg PO DAILY Qty: 90 0RF Hold Instructions: Home Medication placed on hold at Doctor's office memantine 10 mg tablet 10 mg PO BID Qty: 180 1RF (DME) Accessibility Ramp See Rx Instructions .Route .MEDSUPPLY Qty: 1 0RF Rx Instructions: Please provide accommodations for safe and proper access. omega-3 fatty acids 1,250 mg capsule 1,250 mg PO DAILY Qty: 90 3RF citalopram 40 mg tablet 40 mg PO DAILY Qty: 90 4RF losartan 100 mg tablet 50 mg PO BID Qty: 180 4RF metoprolol tartrate 100 mg tablet 50 mg PO BID Qty: 180 4RF sulfamethoxazole-trimethoprim 800-160 mg tablet 1 tab PO BID Qty: 14 0RF glipizide 5 mg tablet extended release 24hr See Rx Instructions .ROUTE .COMPLEX Qty: 90 1RF Dose Instruction: TAKE 1 TABLET BY MOUTH EVERY DAY Rx Instructions: TAKE 1 TABLET BY MOUTH EVERY DAY pantoprazole 20 mg tablet,delayed release (DR/EC) See Rx Instructions .ROUTE .COMPLEX Qty: 90 1RF Dose Instruction: TAKE 1 TABLET BY MOUTH EVERY DAY Rx Instructions: TAKE 1 TABLET BY MOUTH EVERY DAY nystatin 100,000 unit/gram powder 1 applic topical BID Qty: 60 1RF Rx Instructions: After washing and completing drying skin folds, apply powder to skin folds BID magnesium 250 mg tablet 250 mg PO DAILY multivitamin Tablet 1 tab PO DAILY ascorbic acid (vitamin C) 500 mg tablet 500 mg PO DAILY cholecalciferol (vitamin D3) 25 mcg (1,000 unit) tablet 25 mcg PO BID cranberry 1,500 mg PO BID nitroglycerin 0.4 mg tablet, sublingual 0.4 mg sublingual Q5M PRN (Reason: chest pain) Qty: 20 3RF Rx Instructions: do not exceed 3 doses per episode pravastatin 20 mg tablet 20 mg PO BEDTIME Qty: 90 3RF ketoconazole 2 % cream 1 applic topical BID Qty: 60 3RF gentamicin 0.3 % drops 2 drp EYE-LEFT TID Qty: 5 0RF cephalexin 500 mg capsule 500 mg PO QID 7 Days Qty: 28 0RF doxycycline hyclate 100 mg capsule 100 mg PO BID 10 Days Qty: 20 0RF mupirocin 2 % ointment 1 applic topical BID Qty: 15 0RF Referrals: Phu Canales, [Primary Care Provider] -
== END 2022-05-26 11:38 | disposition home or self-care (01) ==
PROVIDERS: Emergency Provider Emergency Medicine; Family Provider Family Medicine; PCP Family Medicine
DX: L03.115 Cellulitis of right lower limb (principal)
CPT/HCPCS: 99281

== ENCOUNTER → 2022-06-07 13:00 | Outpatient (CLI) | payer MEDICARE, MEDICAID, SELFPAY ==
[2022-06-07 14:17] LABS: Appearance Urine UA SL CLOUDY; Bilirubin Urine UA NEGATIVE (NEGATIVE); Color Urine UA YELLOW; Glucose Urine UA NEGATIVE (Negative); Ketones Urine UA NEGATIVE (NEGATIVE); Leukocyte Esterase Urine UA 3+ (NEGATIVE); Nitrite Urine UA NEGATIVE (Negative); Occult Blood Urine UA TRACE-LYSED (Negative); Protein Urine UA 2+ (Negative); Specific Gravity Urine UA <=1.005 (1.000-1.035); Urobilinogen Urine UA 0.2 E.U./dL (0.2)
[2022-06-07 14:18] LABS: pH Urine UA 8.5 (4.5-8.0)
[2022-06-07 14:40] LABS: Bacteria Urine Many (>30); RBC Urine 1-5/HPF (0-5/HPF); Squamous Epithelial Cell Urine 1-5 /HPF (0-5/HPF); WBC Urine 10-30/HPF (0-5/HPF)
[2022-06-07 14:41] LABS: Culture Indicated Urine Specimen Cultured; Triple Phosphate Crystal Urine Few
== END ==
PROVIDERS: Family Provider Family Medicine; PCP Family Medicine; Referring Provider Family Medicine; Visit Provider Family Medicine
DX: R30.0 Dysuria (principal)
CPT/HCPCS: 81001; 87077; 87086; 87186

== ENCOUNTER → 2022-06-25 14:20 | Outpatient (CLI) | payer MEDICARE, MEDICAID, SELFPAY ==
[2022-06-25 15:40] LABS: Appearance Urine UA CLEAR; Bilirubin Urine UA NEGATIVE (NEGATIVE); Color Urine UA YELLOW; Glucose Urine UA NEGATIVE (Negative); Ketones Urine UA NEGATIVE (NEGATIVE); Leukocyte Esterase Urine UA 2+ (NEGATIVE); Nitrite Urine UA NEGATIVE (Negative); Occult Blood Urine UA NEGATIVE (Negative); Protein Urine UA NEGATIVE (Negative); Specific Gravity Urine UA <=1.005 (1.000-1.035); Urobilinogen Urine UA 0.2 E.U./dL (0.2)
[2022-06-25 15:44] LABS: pH Urine UA 6.5 (4.5-8.0)
[2022-06-25 16:04] LABS: Bacteria Urine None Seen; Culture Indicated Urine Specimen Cultured; RBC Urine None Seen (0-5/HPF); Squamous Epithelial Cell Urine 1-5 /HPF (0-5/HPF); WBC Urine 1-5/HPF (0-5/HPF)
== END ==
PROVIDERS: Family Provider Family Medicine; PCP Family Medicine; Referring Provider Family Medicine; Visit Provider Family Medicine
DX: N39.0 Urinary tract infection, site not specified (principal)
CPT/HCPCS: 81001; 87077; 87086; 87186

== ENCOUNTER 2022-06-27 17:38 | Emergency (ER) | payer MEDICARE, MEDICAID, SELFPAY ==
[2022-06-27] VITALS (16 sets, daily range): BP systolic 129–199; BP diastolic 60–105; PULSE 55–64; RESP 10–35; TEMP 36.2; O2SAT 94–99; BMI 58.5
[2022-06-27 18:37] LABS: Add Manual Diff / Slide Review NO; Basophils Absolute Auto 100 /uL (0-100); Eosinophils Absolute Auto 300 /uL (0-450); Eosinophils Percent Auto 4.5 % (2-4); Hemoglobin 13.6 g/dL (12.0-16.0); Lymphocytes Absolute Auto 1500 /uL (1100-4500); Lymphocytes Percent Auto 25.2 % (25-40); Mean Corpuscular Hemoglobin 29.4 PG (26-34); Mean Corpuscular Volume 86.6 fL (80-100); Monocytes Absolute Auto 500 /uL (0-900); Monocytes Percent Auto 8.2 % (3-14); Neutrophils Absolute Auto 3500 /uL (1500-7000); Neutrophils Percent Auto 61.1 % (50-75); Platelet Count 269 X10^3/uL (150-400); Red Blood Cell Count 4.61 X10^6/uL (4.0-5.2); Red Cell Distribution Width 13.5 % (11.6-14.8); White Blood Cell Count 5.8 X10^3/uL (4.5-11.0)
[2022-06-27 18:53] LABS: Alanine Aminotransferase 24 IU/L (<35); Albumin 4.5 g/dL (3.5-5.0); Albumin Globulin Ratio 1.1 (1.0-2.8); Alkaline Phosphatase 96 U/L (38-126); Aspartate Aminotransferase 28 IU/L (14-36); BUN Creatinine Ratio 17.9 (6-22); Bilirubin Total 1.3 mg/dL (0.2-1.3); Blood Urea Nitrogen 14 mg/dL (7-17); Calcium 9.9 mg/dL (8.4-10.2); Carbon Dioxide 29 mmol/L (22-32); Chloride 98 mmol/L (98-107); Estimated Glomerular Filt Rate > 60 mL/min (>60); Globulin 4.2 g/dL (1.7-4.1); Glucose 113 mg/dL (80-110); HEMOLYSIS < 15 (0-50); Potassium 4.8 mmol/L (3.4-5.1); Sodium 136 mmol/L (137-145); Total Protein 8.7 g/dL (6.3-8.2)
[2022-06-27 20:48] LABS: Hematocrit 38.3 % (36-46); Hemoglobin 13.2 g/dL (12.0-16.0)
--- NOTE | 2022-06-27 21:18 | ED.GIBLEED ---
HPI - GI Bleed General Chief complaint: GI Bleed Stated complaint: FELL IN FRONT OF HOSPITAL /BLEEDING FROM BOTTOM Time Seen by Provider: 06/27/22 19:11 Source: patient and family Mode of arrival: Wheelchair Limitations: no limitations History of Present Illness HPI Narrative: Patient is a 71-year-old female. She was coming to the hospital to a doctor's office visit that was scheduled. She fell while entering into the hospital. She reports no injuries from the fall. She went to the doctor's office visit. Was diagnosed with a chronic urinary tract infection and hematuria. Her way out of the doctor's office visit was reported that she would use the restroom. There was concern from the family about bleeding from her rectum. The patient states that she thinks that it was coming from her urine. They came to the emergency department. Her briefs had to be changed 1 further time while in the waiting room. The family is convinced that it is coming from her GI tract and not her urine. The patient reports no injuries from the fall. She has no abdominal pain. No blood thinners listed on her medicine list. She states that she is not had any problems with her bowel movements. Not constipated. No diarrhea. Related Data Home Medications Medication Instructions Recorded Confirmed ascorbic acid (vitamin C) 500 mg 500 mg PO DAILY 03/19/21 06/27/22 tablet cholecalciferol (vitamin D3) 25 25 mcg PO BID 03/19/21 06/27/22 mcg (1,000 unit) tablet cranberry 1,500 mg PO BID 03/19/21 06/27/22 magnesium 250 mg tablet 250 mg PO DAILY 03/19/21 06/27/22 multivitamin 1 tab PO DAILY 03/19/21 06/27/22 Previous Rx's Medication Instructions Recorded amlodipine 10 mg tablet 10 mg PO DAILY #90 tabs 06/04/21 nitroglycerin 0.4 mg sublingual 0.4 mg sublingual Q5M PRN chest 07/18/21 tablet pain #20 tabs gentamicin 0.3 % eye drops 2 drp EYE-LEFT TID #5 mL 08/14/21 ketoconazole 2 % topical cream 1 applic topical BID #60 grams 08/14/21 blood sugar diagnostic (Blood #100 ea 08/17/21 Glucose Test strips) blood-glucose meter #1 ea 08/17/21 lancets 33 gauge (BD Ultra Fine #100 ea 08/17/21 Lancets) benzonatate 100 mg capsule 100 mg PO BID PRN cough #10 caps 08/29/21 metformin 1,000 mg tablet 1,000 mg PO BID #180 tabs 09/21/21 furosemide 20 mg tablet 20 mg PO BID #180 tabs 11/13/21 lisinopril 20 mg tablet 20 mg PO BID #180 tabs 11/15/21 potassium chloride 10 mEq 10 meq PO DAILY #90 tabs 11/19/21 tablet,extended release oxybutynin chloride 5 mg 5 mg PO DAILY #90 tabs 11/20/21 tablet,extended release 24 hr (Ditropan XL) memantine 10 mg tablet 10 mg PO BID #180 tabs 12/20/21 Accessibility Ramp #1 ea 12/27/21 omega-3 fatty acids 1,250 mg 1,250 mg PO DAILY #90 caps 01/01/22 capsule citalopram 40 mg tablet 40 mg PO DAILY #90 tabs 02/08/22 losartan 100 mg tablet 50 mg PO BID #180 tabs 02/08/22 metoprolol tartrate 100 mg tablet 50 mg PO BID #180 tabs 02/08/22 glipizide 5 mg tablet, extended See Rx Instructions .Route 05/07/22 release 24 hr .COMPLEX #90 tabs pantoprazole 20 mg tablet,delayed See Rx Instructions .Route 05/07/22 release .COMPLEX #90 tabs mupirocin 2 % topical ointment 1 applic topical BID wound #15 05/22/22 grams pravastatin 20 mg tablet 20 mg PO BEDTIME #90 tabs 05/28/22 levothyroxine 50 mcg tablet 50 mcg PO DAILY #90 tabs 06/21/22 nystatin 100,000 unit/gram topical 1 applic topical BID rash in 06/24/22 powder abdominal skin folds #60 grams Diabetic Shoes #1 ea 06/25/22 amoxicillin 875 mg-potassium 1 tab PO BID #14 tabs 06/27/22 clavulanate 125 mg tablet doxycycline hyclate 100 mg capsule 100 mg PO BID #14 caps 06/27/22 Allergies Allergy/AdvReac Type Severity Reaction Status Date / Time No Known Drug Allergies Allergy Verified 06/27/22 16:40 Review of Systems Review of Systems ROS Unobtainable: All systems reviewed & are unremarkable except as noted in HPI and below Patient History Medical History Conjunctivitis Dermatophytosis Diabetes Diabetic foot ulcer associated with diabetes mellitus due to underlying condition Dysuria Early onset Alzheimer's dementia HTN (hypertension) Hyperlipidemia Hypothyroidism Incontinence Sleep apnea Tinea Social History Smoking Status: Former smoker Tobacco: How many years used: 25 quit status: quit date established alcohol intake: former substance use type: does not use Smoking Status: Former smoker Substance Use Type: does not use Exam Initial Vital Signs Initial Vital Signs: Vital Signs Temperature 97.1 F L 06/27/22 17:55 Pulse Rate 56 L 06/27/22 17:55 Respiratory Rate 20 06/27/22 17:55 Blood Pressure 199/81 H 06/27/22 17:55 Pulse Oximetry 99 06/27/22 17:55 Oxygen Delivery Method 06/27/22 17:55 Const General: cooperative and No ill appearing HENMT Head: normal to inspection and normocephalic Chest Chest: No crepitus Resp Effort & Inspection: normal respiratory effort Auscultation: clear to auscultation bilaterally Cardio Rate: regular rate Rhythm: regular rhythm GI Inspection: normal to inspection and non-distended Palpation: soft, No firm and No tender Rectal Exam: visual inspection normal, heme negative stool, No hemorrhoids, No lesions and No mass Back/Spine/Pelvis Back: normal to inspection Skin General: no rashes or lesions noted Neuro General: patient alert, patient awake and moves all extremities Gait: normal gait (With her walker) Extrem General: normal to inspection and capillary refill normal Other: Pelvis is stable. No tenderness to palpation of the upper lower extremities. No gross deformities Psych Appearance: grossly normal and well kempt Course Orders Ordered: ED Orders 06/27/22 20:35 Hemoglobin and Hematocrit Stat Vital Signs Vital signs: Vital Signs - 8 hr 06/27/22 19:59 06/27/22 19:59 06/27/22 20:00 Pulse Rate 60 Respiratory Rate Blood Pressure 154/65 H 161/71 H Pulse Oximetry 96 06/27/22 20:00 06/27/22 20:30 06/27/22 20:31 Pulse Rate 61 62 60 Respiratory Rate 13 12 Blood Pressure Pulse Oximetry 97 98 98 06/27/22 20:31 06/27/22 21:05 06/27/22 21:10 Pulse Rate 64 56 L Respiratory Rate 21 14 Blood Pressure 160/65 H Pulse Oximetry 98 06/27/22 21:10 06/27/22 21:30 06/27/22 21:31 Pulse Rate 56 L 55 L Respiratory Rate 19 17 Blood Pressure 155/66 H Pulse Oximetry 98 98 06/27/22 21:31 06/27/22 22:00 06/27/22 22:00 Pulse Rate 55 L Respiratory Rate 26 H Blood Pressure 156/67 H 168/71 H Pulse Oximetry 96 06/27/22 22:30 06/27/22 22:31 06/27/22 22:31 Pulse Rate 61 59 L Respiratory Rate 13 10 L Blood Pressure 166/70 H Pulse Oximetry 98 98 06/27/22 23:00 06/27/22 23:01 06/27/22 23:01 Pulse Rate 55 L 55 L Respiratory Rate 12 11 L Blood Pressure 129/60 Pulse Oximetry 98 97 06/27/22 23:07 06/27/22 23:07 06/27/22 23:30 Pulse Rate 63 62 Respiratory Rate 35 H 15 Blood Pressure 170/105 H Pulse Oximetry 96 94 MDM - GI Bleed Lab Data Attestation: I reviewed the patient's lab results. Result diagrams: 06/27/22 20:35 06/27/22 18:20 Labs: Lab Results 06/27/22 06/27/22 06/27/22 Range/Units 18:20 18:20 20:35 WBC 5.8 (4.5-11.0) X10^3/uL RBC 4.61 (4.0-5.2) X10^6/uL Hgb 13.6 13.2 (12.0-16.0) g/dL Hct 40.0 38.3 (36-46) % MCV 86.6 (80-100) fL MCH 29.4 (26-34) PG MCHC 34.0 (30-36) % RDW 13.5 (11.6-14.8) % Plt Count 269 (150-400) X10^3/uL Neut % (Auto) 61.1 (50-75) % Lymph % (Auto) 25.2 (25-40) % [place] % (Auto) 8.2 (3-14) % Eos % (Auto) 4.5 H (2-4) % Baso % (Auto) 1.0 (0-2) % Neut # (Auto) 3500 (3525-7380) /uL Lymph # (Auto) 1500 (2766-3976) /uL [place] # (Auto) 500 (0-900) /uL Eos # (Auto) 300 (0-450) /uL Baso # (Auto) 100 (0-100) /uL Sodium 136 L (137-145) mmol/L Potassium 4.8 (3.4-5.1) mmol/L Chloride 98 (98-107) mmol/L Carbon Dioxide 29 (22-32) mmol/L BUN 14 (7-17) mg/dL Creatinine 0.78 (0.52-1.04) mg/dL Estimated GFR > 60 (>60) mL/min BUN/Creatinine Ratio 17.9 (6-22) Glucose 113 H (80-110) mg/dL Calcium 9.9 (8.4-10.2) mg/dL Total Bilirubin 1.3 (0.2-1.3) mg/dL AST 28 (14-36) IU/L ALT 24 (<35) IU/L Alkaline Phosphatase 96 (38-126) U/L Total Protein 8.7 H (6.3-8.2) g/dL Albumin 4.5 (3.5-5.0) g/dL Globulin 4.2 H (1.7-4.1) g/dL Albumin/Globulin Ratio 1.1 (1.0-2.8) Point of Care Testing Stool Occult Blood Negative Urine Dip Bedside Urine Glucose Negative Bedside Urine Bilirubin - Negative Bedside Urine Ketone - Negative Urine Specific [place] 1.010 Bedside Urine Occult Blood - Negative Bedside Urine pH 7.5 Bedside Urine Protein - Negative Bedside Urine Urobilinogen - Negative Bedside Urine Nitrite - Negative Bedside Urine Leukocytes - Negative Esterase ECG Data Interpretation: Sinus rhythm Ventricular rate of 57 Left axis deviation Left bundle-branch block less than no ST T wave changes MDM Narrative Medical decision making narrative: Patient's vital signs are unremarkable. Is not hypotensive. Hemoglobin hematocrit stable over several hours. Exam here in the emergency department shows a heme-negative stool. No hemorrhoids noticed. No tenderness with rectal exam. She is no abdominal tenderness. She reports no injuries from the fall. She was able to ambulate with a walker. Discuss this with the patient and the family. The family was upset the not more was done for her. I informed them that it does not appear that she has any active bleeding. There is no indication for any CT scanning of her abdomen. Family was concerned because of the rectal bleeding after the fall that she had internal bleeding. For them that if she did have internal bleeding from the fall he would not present as rectal bleeding. I did inform them that there did not appear to be any rectal bleeding on my exam. We did discuss that she will need a colonoscopy to further evaluate this. Family still seemed upset however according to the patient's exam and her presentation there is no indication for any radiologic studies. They were given return precautions. Discharge Plan Departure Patient Disposition: Home Clinical Impression: Fall, Rectal bleeding Instructions: DI for Rectal Bleeding, How to Prevent Falls Activity Restrictions/Additional Instructions: Recommend that she continue to take all of her medications as directed. I do recommend that you contact her primary doctor for a follow-up and to discuss the indications for referral to have a colonoscopy. She can return to the emergency department at any point for new or worsening symptoms. Prescriptions: No Action amlodipine 10 mg tablet 10 mg PO DAILY Qty: 90 1RF (DME) Blood Glucose Test Strip See Rx Instructions .ROUTE .MEDSUPPLY Qty: 100 7RF Rx Instructions: Use to test blood glucose twice daily. (DME) lancets [BD Ultra Fine Lancets] 33 gauge misc See Rx Instructions .ROUTE .MEDSUPPLY Qty: 100 7RF Rx Instructions: Use to test blood glucose twice daily (DME) blood-glucose meter Misc See Rx Instructions .ROUTE .MEDSUPPLY Qty: 1 0RF Rx Instructions: Use to test blood glucose BID benzonatate 100 mg capsule 100 mg PO BID PRN (Reason: cough) Qty: 10 0RF metformin 1,000 mg tablet 1,000 mg PO BID Qty: 180 1RF Rx Instructions: Take with breakfast and dinner furosemide 20 mg tablet 20 mg PO BID Qty: 180 1RF Hold Instructions: Home Medication placed on hold at Doctor's office lisinopril 20 mg tablet 20 mg PO BID Qty: 180 3RF potassium chloride 10 mEq tablet extended release 10 meq PO DAILY Qty: 90 1RF oxybutynin chloride [Ditropan XL] 5 mg tablet extended release 24hr 5 mg PO DAILY Qty: 90 1RF memantine 10 mg tablet 10 mg PO BID Qty: 180 1RF (DME) Accessibility Ramp See Rx Instructions .Route .MEDSUPPLY Qty: 1 0RF Rx Instructions: Please provide accommodations for safe and proper access. omega-3 fatty acids 1,250 mg capsule 1,250 mg PO DAILY Qty: 90 3RF citalopram 40 mg tablet 40 mg PO DAILY Qty: 90 4RF losartan 100 mg tablet 50 mg PO BID Qty: 180 4RF metoprolol tartrate 100 mg tablet 50 mg PO BID Qty: 180 4RF glipizide 5 mg tablet extended release 24hr See Rx Instructions .ROUTE .COMPLEX Qty: 90 1RF Dose Instruction: TAKE 1 TABLET BY MOUTH EVERY DAY Rx Instructions: TAKE 1 TABLET BY MOUTH EVERY DAY pantoprazole 20 mg tablet,delayed release (DR/EC) See Rx Instructions .ROUTE .COMPLEX Qty: 90 1RF Dose Instruction: TAKE 1 TABLET BY MOUTH EVERY DAY Rx Instructions: TAKE 1 TABLET BY MOUTH EVERY DAY pravastatin 20 mg tablet 20 mg PO BEDTIME Qty: 90 3RF levothyroxine 50 mcg tablet 50 mcg PO DAILY Qty: 90 0RF Hold Instructions: Home Medication placed on hold at Doctor's office nystatin 100,000 unit/gram powder 1 applic topical BID Qty: 60 1RF Rx Instructions: After washing and completing drying skin folds, apply powder to skin folds BID doxycycline hyclate 100 mg capsule 100 mg PO BID Qty: 14 0RF magnesium 250 mg tablet 250 mg PO DAILY multivitamin Tablet 1 tab PO DAILY ascorbic acid (vitamin C) 500 mg tablet 500 mg PO DAILY cholecalciferol (vitamin D3) 25 mcg (1,000 unit) tablet 25 mcg PO BID cranberry 1,500 mg PO BID nitroglycerin 0.4 mg tablet, sublingual 0.4 mg sublingual Q5M PRN (Reason: chest pain) Qty: 20 3RF Rx Instructions: do not exceed 3 doses per episode amoxicillin-pot clavulanate 875-125 mg tablet 1 tab PO BID Qty: 14 0RF ketoconazole 2 % cream 1 applic topical BID Qty: 60 3RF gentamicin 0.3 % drops 2 drp EYE-LEFT TID Qty: 5 0RF (DME) Diabetic Shoes See Rx Instructions .Route .MEDSUPPLY Qty: 1 0RF Rx Instructions: 1 pair as directed; please fit patient for diabetic shoes. mupirocin 2 % ointment 1 applic topical BID Qty: 15 0RF Referrals: Phu Canales, [Primary Care Provider] - Visit Report Forms: Patient Portal/API
--- NOTE | 2022-06-27 22:40 | PC.NURSE ---
At bedside with MD for hemocult and rectal examination - tolerated well - no active bleeding noted - hemocult performed by
--- NOTE | 2022-06-27 22:50 | PC.NURSE ---
clear light yellow urine obtained - POCT performed
== END 2022-06-27 23:53 | disposition home or self-care (01) ==
PROVIDERS: Emergency Medicine; Emergency Provider Emergency Medicine; Family Provider Family Medicine; PCP Family Medicine
DX: K62.5 Hemorrhage of anus and rectum (principal); W18.30XA Fall on same level, unspecified, initial encounter; R03.0 Elevated blood-pressure reading, without diagnosis of hypertension; I44.7 Left bundle-branch block, unspecified
CPT/HCPCS: 36415; 80053; 81003; 82272; 85014; 85018; 85025; 93005; 93010; 99284

== ENCOUNTER → 2022-10-30 05:49 | Outpatient (ROUT) | payer MEDICARE, MEDICAID, SELFPAY ==
[2022-10-30 05:58] LABS: Bilirubin Urine UA NEGATIVE (NEGATIVE); Color Urine UA YELLOW; Glucose Urine UA NEGATIVE (Negative); Ketones Urine UA NEGATIVE (NEGATIVE); Leukocyte Esterase Urine UA 1+ (NEGATIVE); Nitrite Urine UA POSITIVE (Negative); Occult Blood Urine UA NEGATIVE (Negative); Protein Urine UA NEGATIVE (Negative); Specific Gravity Urine UA 1.015 (1.000-1.035); Urobilinogen Urine UA 0.2 E.U./dL (0.2)
[2022-10-30 05:59] LABS: Appearance Urine UA Slightly Cloudy
[2022-10-30 06:11] LABS: Bacteria Urine Many (>30); Culture Indicated Urine Specimen Cultured; RBC Urine None Seen (0-5/HPF); Squamous Epithelial Cell Urine 0-1 /HPF (0-5/HPF); WBC Urine 10-30/HPF (0-5/HPF)
== END ==
PROVIDERS: Family Provider Family Medicine; PCP Family Medicine; Visit Provider Internal Medicine
DX: Z11.2 Encounter for screening for other bacterial diseases (principal)
CPT/HCPCS: 81001; 87077; 87086; 87186

== ENCOUNTER 2023-11-03 01:45 | Emergency (ER) | payer MEDICARE, MEDICAID, SELFPAY ==
[2023-11-03] VITALS (11 sets, daily range): BP systolic 121–186; BP diastolic 60–90; PULSE 69–79; RESP 11–38; TEMP 36.7–37.1; O2SAT 93–98; BMI 52.2
--- NOTE | 2023-11-03 01:59 | DI.RAD.S_ITS ---
PROCEDURE: XR CHEST 1V INDICATIONS: chest pain TECHNIQUE: One view of the chest was acquired. COMPARISON: None. FINDINGS: Surgical changes and devices: None. Lungs and pleura: Lungs are clear. No pleural effusions or pneumothorax. Mediastinum: Mediastinal contours appear normal. Heart size is normal. Bones and chest wall: No suspicious bony lesions. Overlying soft tissues appear unremarkable. IMPRESSION: No acute cardiopulmonary abnormalities or focal airspace disease. No significant discrepancy with the instrument and control technician radiology preliminary report. Dictated by: Paul Maradiaga M.D. on 11/03/2023 at 7:31 Approved by: Paul Maradiaga M.D. on 11/03/2023 at 7:44
--- NOTE | 2023-11-03 02:04 | ED.CHESTPAIN ---
HPI - Chest Pain General Chief Complaint: Chest Pain Stated Complaint: chest pressure Time Seen by Provider: 11/03/23 01:46 Source: patient, EMS, RN notes reviewed and old records reviewed Mode of arrival: EMS Limitations: no limitations History of Present Illness HPI narrative: 73-year-old female with history of hypertension, CHF, diabetes, hypothyroidism, dementia, sleep apnea who comes from [facility]. Patient states she developed chest pain/pressure lasted about an hour has since resolved. She states she did feel short of breath while it was occurring but has resolved. Denies fevers no cold cough or congestive symptoms. No nausea or vomiting. No diarrhea or constipation she states she has been stooling regularly. Denies any new swelling of extremities. Patient does not recall all of her medications but states no blood thinners, she states she is on medication for diabetes, hypertension dyslipidemia. She states no prior surgeries. No known drug allergies. Denies tobacco, alcohol or recreational drugs. Dr. Canales is her primary care physician. Patient had received aspirin 324 mg EN route with EMS. Related Data Home Medications Medication Instructions Recorded Confirmed ascorbic acid (vitamin C) 500 mg 500 mg PO DAILY 03/19/21 06/27/22 tablet cholecalciferol (vitamin D3) 25 25 mcg PO BID 03/19/21 06/27/22 mcg (1,000 unit) tablet cranberry 1,500 mg PO BID 03/19/21 06/27/22 magnesium 250 mg tablet 250 mg PO DAILY 03/19/21 06/27/22 multivitamin 1 tab PO DAILY 03/19/21 06/27/22 Previous Rx's Medication Instructions Recorded nitroglycerin 0.4 mg sublingual 0.4 mg sublingual Q5M PRN chest 07/18/21 tablet pain #20 tabs gentamicin 0.3 % eye drops 2 drp EYE-LEFT TID #5 mL 08/14/21 ketoconazole 2 % topical cream 1 applic topical BID #60 grams 08/14/21 blood sugar diagnostic (Blood #100 ea 08/17/21 Glucose Test strips) blood-glucose meter #1 ea 08/17/21 lancets 33 gauge (BD Ultra Fine #100 ea 08/17/21 Lancets) benzonatate 100 mg capsule 100 mg PO BID PRN cough #10 caps 08/29/21 furosemide 20 mg tablet 20 mg PO BID #180 tabs 11/13/21 lisinopril 20 mg tablet 20 mg PO BID #180 tabs 11/15/21 potassium chloride 10 mEq 10 meq PO DAILY #90 tabs 11/19/21 tablet,extended release oxybutynin chloride 5 mg 5 mg PO DAILY #90 tabs 11/20/21 tablet,extended release 24 hr (Ditropan XL) Accessibility Ramp #1 ea 12/27/21 omega-3 fatty acids 1,250 mg 1,250 mg PO DAILY #90 caps 01/01/22 capsule citalopram 40 mg tablet 40 mg PO DAILY #90 tabs 02/08/22 losartan 100 mg tablet 50 mg (1/2 x 100 mg) PO BID #180 02/08/22 tabs metoprolol tartrate 100 mg tablet 50 mg (1/2 x 100 mg) PO BID #180 02/08/22 tabs glipizide 5 mg tablet, extended See Rx Instructions .Route 05/07/22 release 24 hr .COMPLEX #90 tabs pantoprazole 20 mg tablet,delayed See Rx Instructions .Route 05/07/22 release .COMPLEX #90 tabs mupirocin 2 % topical ointment 1 applic topical BID wound #15 05/22/22 grams pravastatin 20 mg tablet 20 mg PO BEDTIME #90 tabs 05/28/22 nystatin 100,000 unit/gram topical 1 applic topical BID rash in 06/24/22 powder abdominal skin folds #60 grams Diabetic Shoes #1 ea 06/25/22 amoxicillin 875 mg-potassium 1 tab PO BID #14 tabs 06/27/22 clavulanate 125 mg tablet doxycycline hyclate 100 mg capsule 100 mg PO BID #14 caps 06/27/22 metformin 1,000 mg tablet See Rx Instructions .Route 07/16/22 .COMPLEX #180 tabs memantine 10 mg tablet See Rx Instructions .Route 07/17/22 .COMPLEX #180 tabs amlodipine 10 mg tablet 10 mg PO DAILY #90 tabs 07/19/22 levothyroxine 50 mcg tablet 50 mcg PO DAILY #90 tabs 07/22/22 Allergies Allergy/AdvReac Type Severity Reaction Status Date / Time No Known Drug Allergies Allergy Verified 06/27/22 16:40 Review of Systems Review of Systems ROS Unobtainable: All systems reviewed & are unremarkable except as noted in HPI and below Patient History Medical History Dermatophytosis Diabetic foot ulcer associated with diabetes mellitus due to underlying condition Dysuria Conjunctivitis Tinea Early onset Alzheimer's dementia Incontinence Sleep apnea Hyperlipidemia HTN (hypertension) Hypothyroidism Diabetes Social History Smoking Status: Former smoker Tobacco: How many years used: 25 quit status: quit date established alcohol intake: former substance use type: does not use Smoking Status: Former smoker Substance Use Type: does not use Exam Narrative Exam Narrative: GENERAL: Alert and oriented x three, obese female in mild distress. HEENT: Head normocephalic, atraumatic, EOMI, pupils reactive, face symmetric, moist mucous membranes NECK: Supple, full range of motion CARDIOVASCULAR: Regular rate and rhythm without murmurs, rubs or gallops. No JVD. No edema bilateral lower extremities appreciated. RESPIRATORY: Breath sounds equal bilaterally, no wheezes rales or rhonchi. ABDOMEN: Soft, nontender. Normoactive bowel sounds all 4 quadrants. No guarding or rebound, rigidity, no mass : No CVA tenderness EXTREMITIES: Normal range of motion, no clubbing or edema. Neurovascularly intact NEUROLOGICAL: Cranial nerves II through XII grossly intact. Moving all extremities SKIN: Warm, dry, no petechiae, no rashes or lesions. Initial Vital Signs Initial Vital Signs: Vital Signs Temperature 98.8 F 11/03/23 01:45 Pulse Rate 76 11/03/23 01:45 Respiratory Rate 22 11/03/23 01:45 Blood Pressure 186/90 H 11/03/23 01:45 Pulse Oximetry 98 11/03/23 01:45 Oxygen Delivery Method Room Air 11/03/23 01:45 Course Orders Ordered: ED Orders 11/03/23 01:50 Complete Blood Count AUTO DIFF Stat Comprehensive Metabolic Panel Stat Lipase Stat NT-proBNP (BNP-Adult 18+) Stat PTT Partial Thromboplastin Gael Stat Prothrombin Time INR Stat Troponin & CK Cardiac Panel Stat EKG-12 Lead Routine 11/03/23 01:59 XR chest 1V Stat 11/03/23 02:25 Covid-19 + FLU A/B + RSV - PCR Stat 11/03/23 03:53 Trop I [Troponin I] Stat 11/03/23 04:31 EKG-12 Lead Routine Vital Signs Vital signs: Vital Signs - 8 hr 11/03/23 01:45 11/03/23 02:02 11/03/23 02:30 Temperature 98.8 F Pulse Rate 76 73 Respiratory Rate 22 14 Blood Pressure 186/90 H 162/76 H Pulse Oximetry 98 98 Oxygen Delivery Method Room Air Room Air 11/03/23 02:30 11/03/23 03:00 11/03/23 03:01 Temperature Pulse Rate 69 77 Respiratory Rate 14 25 H Blood Pressure 146/64 H Pulse Oximetry 97 98 Oxygen Delivery Method Room Air 11/03/23 03:01 11/03/23 03:30 11/03/23 03:31 Temperature Pulse Rate 72 72 72 Respiratory Rate 26 H 18 17 Blood Pressure Pulse Oximetry 98 98 97 Oxygen Delivery Method 11/03/23 03:31 11/03/23 04:00 11/03/23 04:00 Temperature Pulse Rate 71 Respiratory Rate 11 L Blood Pressure 135/61 134/64 Pulse Oximetry 96 Oxygen Delivery Method 11/03/23 04:30 11/03/23 04:30 11/03/23 05:00 Temperature Pulse Rate 72 Respiratory Rate 38 H Blood Pressure 121/66 134/60 Pulse Oximetry 94 Oxygen Delivery Method 11/03/23 05:00 Temperature Pulse Rate 79 Respiratory Rate Blood Pressure Pulse Oximetry 93 Oxygen Delivery Method MDM - Chest Pain Lab Data 11/03/23 01:50 11/03/23 01:50 Labs: Lab Results 11/03/23 11/03/23 11/03/23 Range/Units 01:50 02:25 03:53 WBC 7.8 (4.5-11.0) X10^3/uL RBC 4.50 (4.0-5.2) X10^6/uL Hgb 13.4 (12.0-16.0) g/dL Hct 39.2 (36-46) % MCV 87.1 (80-100) fL MCH 29.7 (26-34) PG MCHC 34.1 (30-36) % RDW 13.6 (11.6-14.8) % Plt Count 329 (150-400) X10^3/uL Neut % (Auto) 51.4 (50-75) % Lymph % (Auto) 37.0 (25-40) % [place] % (Auto) 8.1 (3-14) % Eos % (Auto) 2.5 (2-4) % Baso % (Auto) 1.0 (0-2) % Neut # (Auto) 4000 (3337-6872) /uL Lymph # (Auto) 2900 (3762-8660) /uL [place] # (Auto) 600 (0-900) /uL Eos # (Auto) 200 (0-450) /uL Baso # (Auto) 100 (0-100) /uL PT 10.4 (9.4-12.5) SECONDS INR 0.9 (0.9-1.3) APTT 34 (25.1-36.5) SECONDS Sodium 136 L (137-145) mmol/L Potassium 4.4 (3.4-5.1) mmol/L Chloride 100 (98-107) mmol/L Carbon Dioxide 25 (22-32) mmol/L BUN 17 (7-17) mg/dL Creatinine 0.69 (0.52-1.04) mg/dL Estimated GFR > 60 (>60) mL/min BUN/Creatinine Ratio 24.6 H (6-22) Glucose 155 H (80-110) mg/dL Calcium 10.5 H (8.4-10.2) mg/dL Total Bilirubin 0.9 (0.2-1.3) mg/dL AST 26 (14-36) IU/L ALT 23 (<35) IU/L Alkaline Phosphatase 109 (38-126) U/L Total Creatine Kinase 47 (30-135) U/L Troponin I < 0.012 < 0.012 (0.01-0.034) ng/mL NT-Pro-B Natriuret Pep 42 (<125) pg/mL Total Protein 8.8 H (6.3-8.2) g/dL Albumin 4.6 (3.5-5.0) g/dL Globulin 4.2 H (1.7-4.1) g/dL Albumin/Globulin Ratio 1.1 (1.0-2.8) Lipase 91 (23-300) U/L SARS-CoV-2 (PCR) Positive H (Negative) Influenza A (RT-PCR) Flu a negative (NEGATIVE) Influenza B (RT-PCR) Flu b negative (NEGATIVE) RSV (PCR) Negative (Negative) Imaging Data Chest x-ray: Radiologist's Impression: Consolidation large pleural effusion. No pneumothorax. Heart size is normal. No retrocardiac opacity. Degenerative changes thoracic spine. No fracture. ECG Data Attestation: I personally reviewed and interpreted this ECG as follows: Prior ECG tracings: available for review Interpretation: Sinus rhythm with first-degree AV block, left bundle-branch block. Rate of 73 [place] 324 QRS of 134 QTC of 438. Patient has prior from 06/27/22 which appears similar. Left bundle-branch block rate of 55 QRS of 132 QTC of 409. MDM Narrative Medical decision making narrative: 73-year-old female with complaint of chest pressure for approximately an hour has since resolved has some shortness of breath no other symptoms. Patient is slightly hypertensive. Patient lives at care facility that has had recent COVID outbreak. Patient is chest pain free at this time. Patient had aspirin 324mg prior to arrival. EKG shows left bundle-branch block. Chest x-ray is negative for acute change. No consolidation. Labs, CBC is negative. INR is negative. CMP shows a sodium of 136 normal electrolytes, renal function, BUN glucose of 155 calcium 10.5 LFTs are negative total protein and globulin are elevated at 8.8 and 4.2. Lipase is negative. Troponin is negative. Bnp is 42. EKG and troponin was repeated read as afib by computer but appears to have 1st degree block. No acute ST changes. LBBB. Repeat troponin is negative. COVID/influenza/RSV swab is positive for covid. Patient had ECHO 03/12/24 which showed normal EF 55-60% normal right ventricular size and function no significant valvular abnormalities, patient sinus bradycardia heart rate between 55 and 60 beats per minute with a left bundle-branch and a left ventricle grossly normal left ventricle ejection fraction grossly normal septal motion consistent with conduction abnormality. Patient continues to be asymptomatic. Plan for discharge back to facility. Discharge Plan Departure Patient Disposition: Home Clinical Impression: Chest pain, COVID-19 virus infection Activity Restrictions/Additional Instructions: You have tested positive for covid today. You may take tylenol up to a 1000 mg every 6 and/or ibuprofen 600 mg every 6 hours as needed for fever. Continue your home medications as prescribed. Please return new or worsening chest pain, shortness of breath, lightheadedness or passing out, new swelling in extremities, persistent vomiting or other new or concerning changes. Prescriptions: No Action (DME) Blood Glucose Test Strip See Rx Instructions .ROUTE .MEDSUPPLY Qty: 100 7RF Rx Instructions: Use to test blood glucose twice daily. (DME) lancets [BD Ultra Fine Lancets] 33 gauge misc See Rx Instructions .ROUTE .MEDSUPPLY Qty: 100 7RF Rx Instructions: Use to test blood glucose twice daily (DME) blood-glucose meter Misc See Rx Instructions .ROUTE .MEDSUPPLY Qty: 1 0RF Rx Instructions: Use to test blood glucose BID benzonatate 100 mg capsule 100 mg PO BID PRN (Reason: cough) Qty: 10 0RF furosemide 20 mg tablet 20 mg PO BID Qty: 180 1RF Hold Instructions: Home Medication placed on hold at Doctor's office lisinopril 20 mg tablet 20 mg PO BID Qty: 180 3RF potassium chloride 10 mEq tablet extended release 10 meq PO DAILY Qty: 90 1RF oxybutynin chloride [Ditropan XL] 5 mg tablet extended release 24hr 5 mg PO DAILY Qty: 90 1RF (DME) Accessibility Ramp See Rx Instructions .Route .MEDSUPPLY Qty: 1 0RF Rx Instructions: Please provide accommodations for safe and proper access. omega-3 fatty acids 1,250 mg capsule 1,250 mg PO DAILY Qty: 90 3RF citalopram 40 mg tablet 40 mg PO DAILY Qty: 90 4RF losartan 100 mg tablet 50 mg PO BID Qty: 180 4RF metoprolol tartrate 100 mg tablet 50 mg PO BID Qty: 180 4RF glipizide 5 mg tablet extended release 24hr See Rx Instructions .ROUTE .COMPLEX Qty: 90 1RF Dose Instruction: TAKE 1 TABLET BY MOUTH EVERY DAY Rx Instructions: TAKE 1 TABLET BY MOUTH EVERY DAY pantoprazole 20 mg tablet,delayed release (DR/EC) See Rx Instructions .ROUTE .COMPLEX Qty: 90 1RF Dose Instruction: TAKE 1 TABLET BY MOUTH EVERY DAY Rx Instructions: TAKE 1 TABLET BY MOUTH EVERY DAY pravastatin 20 mg tablet 20 mg PO BEDTIME Qty: 90 3RF nystatin 100,000 unit/gram powder 1 applic topical BID Qty: 60 1RF Rx Instructions: After washing and completing drying skin folds, apply powder to skin folds BID doxycycline hyclate 100 mg capsule 100 mg PO BID Qty: 14 0RF metformin 1,000 mg tablet See Rx Instructions .ROUTE .COMPLEX Qty: 180 0RF Dose Instruction: TAKE 1 TABLET BY MOUTH TWICE DAILY Rx Instructions: TAKE 1 TABLET BY MOUTH TWICE DAILY memantine 10 mg tablet See Rx Instructions .ROUTE .COMPLEX Qty: 180 0RF Dose Instruction: TAKE 1 TABLET BY MOUTH TWICE DAILY Rx Instructions: TAKE 1 TABLET BY MOUTH TWICE DAILY amlodipine 10 mg tablet 10 mg PO DAILY Qty: 90 1RF levothyroxine 50 mcg tablet 50 mcg PO DAILY Qty: 90 3RF Hold Instructions: Home Medication placed on hold at Doctor's office magnesium 250 mg tablet 250 mg PO DAILY multivitamin Tablet 1 tab PO DAILY ascorbic acid (vitamin C) 500 mg tablet 500 mg PO DAILY cholecalciferol (vitamin D3) 25 mcg (1,000 unit) tablet 25 mcg PO BID cranberry 1,500 mg PO BID nitroglycerin 0.4 mg tablet, sublingual 0.4 mg sublingual Q5M PRN (Reason: chest pain) Qty: 20 3RF Rx Instructions: do not exceed 3 doses per episode amoxicillin-pot clavulanate 875-125 mg tablet 1 tab PO BID Qty: 14 0RF ketoconazole 2 % cream 1 applic topical BID Qty: 60 3RF gentamicin 0.3 % drops 2 drp EYE-LEFT TID Qty: 5 0RF (DME) Diabetic Shoes See Rx Instructions .Route .MEDSUPPLY Qty: 1 0RF Rx Instructions: 1 pair as directed; please fit patient for diabetic shoes. mupirocin 2 % ointment 1 applic topical BID Qty: 15 0RF Referrals: Phu Canales DO [Primary Care Provider] - Stand Alone Forms: Patient Portal/API
[2023-11-03 02:07] LABS: Add Manual Diff / Slide Review NO; Basophils Absolute Auto 100 /uL (0-100); Eosinophils Absolute Auto 200 /uL (0-450); Eosinophils Percent Auto 2.5 % (2-4); Hematocrit 39.2 % (36-46); Hemoglobin 13.4 g/dL (12.0-16.0); Lymphocytes Absolute Auto 2900 /uL (1100-4500); Mean Corpuscular HGB Conc 34.1 % (30-36); Mean Corpuscular Hemoglobin 29.7 PG (26-34); Mean Corpuscular Volume 87.1 fL (80-100); Monocytes Absolute Auto 600 /uL (0-900); Monocytes Percent Auto 8.1 % (3-14); Neutrophils Absolute Auto 4000 /uL (1500-7000); Neutrophils Percent Auto 51.4 % (50-75); Platelet Count 329 X10^3/uL (150-400); Red Cell Distribution Width 13.6 % (11.6-14.8); White Blood Cell Count 7.8 X10^3/uL (4.5-11.0)
[2023-11-03 02:08] LABS: INR 0.9 (0.9-1.3); Prothrombin Time 10.4 SECONDS (9.4-12.5)
[2023-11-03 02:11] LABS: PTT Partial Thromboplastin Tim 34 SECONDS (25.1-36.5)
[2023-11-03 02:13] LABS: Alanine Aminotransferase 23 IU/L (<35); Albumin 4.6 g/dL (3.5-5.0); Albumin Globulin Ratio 1.1 (1.0-2.8); Alkaline Phosphatase 109 U/L (38-126); Aspartate Aminotransferase 26 IU/L (14-36); BUN Creatinine Ratio 24.6 (6-22); Bilirubin Total 0.9 mg/dL (0.2-1.3); Blood Urea Nitrogen 17 mg/dL (7-17); Calcium 10.5 mg/dL (8.4-10.2); Carbon Dioxide 25 mmol/L (22-32); Chloride 100 mmol/L (98-107); Creatine Kinase 47 U/L (30-135); Estimated Glomerular Filt Rate > 60 mL/min (>60); Globulin 4.2 g/dL (1.7-4.1); Glucose 155 mg/dL (80-110); HEMOLYSIS 25 (0-50); Lipase 91 U/L (23-300); Potassium 4.4 mmol/L (3.4-5.1); Sodium 136 mmol/L (137-145); Total Protein 8.8 g/dL (6.3-8.2)
[2023-11-03 02:24] LABS: NT-proBNP (BNP-Adult 18+) 42 pg/mL (<125); Troponin I < 0.012 ng/mL (0.01-0.034)
[2023-11-03 03:22] LABS: Influenza A - CEPHEID Flu A NEGATIVE (NEGATIVE); Influenza B - CEPHEID Flu B NEGATIVE (NEGATIVE); Respiratory Syncytial Virus Negative (Negative)
[2023-11-03 03:23] LABS: COVID-19 CEPHEID 4-PLEX PCR POSITIVE (Negative)
[2023-11-03 04:27] LABS: Troponin I < 0.012 ng/mL (0.01-0.034)
--- NOTE | 2023-11-03 05:11 | PC.NURSE ---
[facility] DIRECTOR note: 0509 removed patient's IV per JESSY Terrell's request. Used 2 2 by 2 gauze and coban. Took of the tape, and tegaderm, and foam securing the IV. Used gauzed on IV site, wrapped twice in coban. Patient made jokes the entire time. JESSY Terrell aware.
== END 2023-11-03 05:30 ==
PROVIDERS: Emergency Provider Emergency Medicine; Family Provider Family Medicine; PCP Family Medicine
DX: U07.1 COVID-19 (principal); R07.9 Chest pain, unspecified; R06.02 Shortness of breath; Z79.899 Other long term (current) drug therapy
CPT/HCPCS: 0241U; 36415; 71045; 80053; 82550; 83690; 83880; 84484; 85025; 85610; 85730; 93005; 99283; 99284

== ENCOUNTER → 2024-05-03 13:12 | Outpatient (ROUT) | payer MEDICARE, MEDICAID, SELFPAY ==
[2024-05-03 13:18] LABS: Appearance Urine UA SL CLOUDY; Bilirubin Urine UA NEGATIVE (NEGATIVE); Color Urine UA YELLOW; Glucose Urine UA NEGATIVE (Negative); Ketones Urine UA NEGATIVE (NEGATIVE); Leukocyte Esterase Urine UA 3+ (NEGATIVE); Nitrite Urine UA POSITIVE (Negative); Occult Blood Urine UA TRACE-INTACT (Negative); Protein Urine UA NEGATIVE (Negative); Specific Gravity Urine UA <=1.005 (1.000-1.035); Urobilinogen Urine UA 0.2 E.U./dL (0.2)
[2024-05-03 13:21] LABS: pH Urine UA 6.5 (4.5-8.0)
[2024-05-03 13:26] LABS: Bacteria Urine Many (>30); Culture Indicated Urine Specimen Cultured; RBC Urine None Seen (0-5/HPF); Squamous Epithelial Cell Urine 1-5 /HPF (0-5/HPF); Urine Volume 10mL (spun); WBC Urine 30-100/HPF (0-5/HPF)
== END ==
PROVIDERS: Family Provider Family Medicine; PCP Family Medicine; Visit Provider Registered Nurse
DX: N39.0 Urinary tract infection, site not specified (principal)
CPT/HCPCS: 81001; 87077; 87086

== ENCOUNTER 2024-06-14 04:35 | Emergency (ER) | payer MEDICARE, MEDICAID, SELFPAY ==
[2024-06-14] VITALS (9 sets, daily range): BP systolic 128–154; BP diastolic 62–87; PULSE 62–87; RESP 15–22; TEMP 36.6; O2SAT 88–99; BMI 60.8
--- NOTE | 2024-06-14 04:37 | DI.RAD.S_ITS ---
PROCEDURE: XR CHEST 1V INDICATIONS: Chest pain TECHNIQUE: One view of the chest was acquired. COMPARISON: [facility], CR, XR CHEST 1V, 11/03/2023, 2:02. FINDINGS: Surgical changes and devices: None. Lungs and pleura: Lungs are clear. No pleural effusions or pneumothorax. Mediastinum: Mediastinal contours appear normal. Heart size is normal. Bones and chest wall: No suspicious bony lesions. Overlying soft tissues appear unremarkable. IMPRESSION: No acute pulmonary process. The above findings are concordant with preliminary report. Dictated by: Fatuma Arteaga M.D. on 06/14/2024 at 9:43 Approved by: Fatuma Arteaga M.D. on 06/14/2024 at 9:43
--- NOTE | 2024-06-14 04:38 | EKG_ITS ---
[facility] [address] [address] Test Date: 2024-06-14 Pat Name: Jessie Palacios Department: [facility] Room: Gender: Female Project Associate: JAVIER : 1950 Requested By: Order Number: [id number] Reading MD: Uche John MD Measurements Intervals [place] Rate: 67 P: 64 [place]: 308 QRS: -61 QRSD: 136 T: 82 QT: 426 QTc: 450 Interpretive Statements Sinus rhythm with 1st degree AV block Left bundle branch block (old) Electronically Signed On 06-14-2024 7:59:52 PDT by Uche John MD
[2024-06-14 05:01] LABS: Add Manual Diff / Slide Review NO; Basophils Absolute Auto 100 /uL (0-100); Basophils Percent Auto 0.8 % (0-2); Eosinophils Absolute Auto 400 /uL (0-450); Eosinophils Percent Auto 4.9 % (2-4); Hemoglobin 13.7 g/dL (12.0-16.0); Lymphocytes Absolute Auto 3300 /uL (1100-4500); Lymphocytes Percent Auto 38.2 % (25-40); Mean Corpuscular HGB Conc 33.3 % (30-36); Mean Corpuscular Volume 87.2 fL (80-100); Monocytes Absolute Auto 600 /uL (0-900); Monocytes Percent Auto 6.7 % (3-14); Neutrophils Absolute Auto 4200 /uL (1500-7000); Neutrophils Percent Auto 49.4 % (50-75); Platelet Count 339 X10^3/uL (150-400); White Blood Cell Count 8.6 X10^3/uL (4.5-11.0)
--- NOTE | 2024-06-14 05:04 | ED_ITS ---
HPI - Chest Pain General Chief Complaint: Chest Pain Stated Complaint: chest pressure Time Seen by Provider: 06/14/24 04:37 Source: patient Mode of arrival: EMS Limitations: no limitations History of Present Illness HPI narrative: Patient is a 73-year-old female who comes in the emergency department for evaluation of chest pressure. Symptoms started approximately 2 hours prior to arrival here in the emergency department. States it did wake her from sleep. States it was not a pain but a pressure. No shortness of breath. No palpitations. Potentially somewhat worse with palpation but she can not definitively say this. No abdominal pain nausea vomiting. There has been no interventions prior to arrival. She has had discomfort like this in the past. Has a history of CHF. She thought that the last time that this discomfort happened she received nitroglycerin and that helped her symptoms. Related Data Home Medications Medication Instructions Recorded Confirmed ascorbic acid (vitamin C) 500 mg 500 mg PO DAILY 03/19/21 06/27/22 tablet cholecalciferol (vitamin D3) 25 25 mcg PO BID 03/19/21 06/27/22 mcg (1,000 unit) tablet cranberry 1,500 mg PO BID 03/19/21 06/27/22 magnesium 250 mg tablet 250 mg PO DAILY 03/19/21 06/27/22 multivitamin 1 tab PO DAILY 03/19/21 06/27/22 Previous Rx's Medication Instructions Recorded nitroglycerin 0.4 mg sublingual 0.4 mg sublingual Q5M PRN chest 07/18/21 tablet pain #20 tabs gentamicin 0.3 % eye drops 2 drp EYE-LEFT TID #5 mL 08/14/21 ketoconazole 2 % topical cream 1 applic topical BID #60 grams 08/14/21 blood sugar diagnostic (Blood #100 ea 08/17/21 Glucose Test strips) blood-glucose meter #1 ea 08/17/21 lancets 33 gauge (BD Ultra Fine #100 ea 08/17/21 Lancets) benzonatate 100 mg capsule 100 mg PO BID PRN cough #10 caps 08/29/21 furosemide 20 mg tablet 20 mg PO BID #180 tabs 11/13/21 lisinopril 20 mg tablet 20 mg PO BID #180 tabs 11/15/21 potassium chloride 10 mEq 10 meq PO DAILY #90 tabs 11/19/21 tablet,extended release oxybutynin chloride 5 mg 5 mg PO DAILY #90 tabs 11/20/21 tablet,extended release 24 hr (Ditropan XL) Accessibility Ramp #1 ea 12/27/21 omega-3 fatty acids 1,250 mg 1,250 mg PO DAILY #90 caps 01/01/22 capsule citalopram 40 mg tablet 40 mg PO DAILY #90 tabs 02/08/22 losartan 100 mg tablet 50 mg (1/2 x 100 mg) PO BID #180 02/08/22 tabs metoprolol tartrate 100 mg tablet 50 mg (1/2 x 100 mg) PO BID #180 02/08/22 tabs glipizide 5 mg tablet, extended See Rx Instructions .Route 05/07/22 release 24 hr .COMPLEX #90 tabs pantoprazole 20 mg tablet,delayed See Rx Instructions .Route 05/07/22 release .COMPLEX #90 tabs mupirocin 2 % topical ointment 1 applic topical BID wound #15 05/22/22 grams pravastatin 20 mg tablet 20 mg PO BEDTIME #90 tabs 05/28/22 nystatin 100,000 unit/gram topical 1 applic topical BID rash in 06/24/22 powder abdominal skin folds #60 grams Diabetic Shoes #1 ea 06/25/22 amoxicillin 875 mg-potassium 1 tab PO BID #14 tabs 06/27/22 clavulanate 125 mg tablet doxycycline hyclate 100 mg capsule 100 mg PO BID #14 caps 06/27/22 metformin 1,000 mg tablet See Rx Instructions .Route 07/16/22 .COMPLEX #180 tabs memantine 10 mg tablet See Rx Instructions .Route 07/17/22 .COMPLEX #180 tabs amlodipine 10 mg tablet 10 mg PO DAILY #90 tabs 07/19/22 levothyroxine 50 mcg tablet 50 mcg PO DAILY #90 tabs 07/22/22 nitroglycerin 0.4 mg sublingual 0.4 mg sublingual Q5-15M PRN chest 06/14/24 tablet pain #25 tabs Allergies Allergy/AdvReac Type Severity Reaction Status Date / Time No Known Drug Allergies Allergy Verified 06/27/22 16:40 Review of Systems Review of Systems Narrative: See HPI Patient History Medical History Dermatophytosis Diabetic foot ulcer associated with diabetes mellitus due to underlying condition Dysuria Conjunctivitis Tinea Early onset Alzheimer's dementia Incontinence Sleep apnea Hyperlipidemia HTN (hypertension) Hypothyroidism Diabetes Social History Smoking Status: Former smoker Tobacco: How many years used: 25 quit status: quit date established alcohol intake: former substance use type: does not use Smoking Status: Former smoker Substance Use Type: does not use Exam Initial Vital Signs Initial Vital Signs: Vital Signs Temperature 97.8 F 06/14/24 04:38 Pulse Rate 77 06/14/24 04:38 Respiratory Rate 22 06/14/24 04:38 Blood Pressure 136/84 06/14/24 04:38 Pulse Oximetry 96 06/14/24 04:38 Oxygen Delivery Method Room Air 06/14/24 04:38 Const Nutritional Appearance: obese Other: Chronically ill-appearing HENMT Head: normal to inspection and normocephalic Chest Chest: No crepitus and tenderness Resp Effort & Inspection: normal respiratory effort Auscultation: clear to auscultation bilaterally Cardio Rate: regular rate Rhythm: regular rhythm GI Inspection: normal to inspection and non-distended Neuro General: patient alert and patient awake Extrem General: edema Course Orders Ordered: ED Orders 06/14/24 04:35 BNP [NT-proBNP (BNP-Adult 18+)] Stat Complete Blood Count AUTO DIFF Stat Comprehensive Metabolic Panel Stat Lipase Stat Magnesium Stat Troponin & CK Cardiac Panel Stat 06/14/24 04:37 XR chest 1V Stat 06/14/24 04:38 EKG-12 Lead Stat 06/14/24 06:38 Troponin & CK Cardiac Panel Stat Nitroglycerin (Nitroglycerin 0.4 Mg Sl Tab) 0.4 mg SL [id number] PRN PRN Reason: Chest Pain Last Admin: 06/14/24 05:25 Dose: 0.4 mg Documented By: Admin: 06/14/24 05:20 Dose: 0.4 mg Documented By: Vital Signs Vital signs: Vital Signs - 8 hr 06/14/24 04:38 06/14/24 05:20 06/14/24 05:25 Temperature 97.8 F Pulse Rate 77 87 75 Respiratory Rate 22 Blood Pressure 136/84 154/87 H 137/85 Pulse Oximetry 96 Oxygen Delivery Method Room Air MDM - Chest Pain Medical Records Data Attestation: I reviewed the patient's medical records. Lab Data Attestation: I reviewed the patient's lab results. 06/14/24 04:35 06/14/24 04:35 Labs: Lab Results 06/14/24 06/14/24 Range/Units 04:35 06:38 WBC 8.6 (4.5-11.0) X10^3/uL RBC 4.70 (4.0-5.2) X10^6/uL Hgb 13.7 (12.0-16.0) g/dL Hct 41.0 (36-46) % MCV 87.2 (80-100) fL MCH 29.0 (26-34) PG MCHC 33.3 (30-36) % RDW 14.0 (11.6-14.8) % Plt Count 339 (150-400) X10^3/uL Neut % (Auto) 49.4 L (50-75) % Lymph % (Auto) 38.2 (25-40) % [place] % (Auto) 6.7 (3-14) % Eos % (Auto) 4.9 H (2-4) % Baso % (Auto) 0.8 (0-2) % Neut # (Auto) 4200 (1808-3504) /uL Lymph # (Auto) 3300 (0496-8491) /uL [place] # (Auto) 600 (0-900) /uL Eos # (Auto) 400 (0-450) /uL Baso # (Auto) 100 (0-100) /uL Sodium 137 (137-145) mmol/L Potassium 4.5 (3.4-5.1) mmol/L Chloride 102 (98-107) mmol/L Carbon Dioxide 25 (22-32) mmol/L BUN 15 (7-17) mg/dL Creatinine 0.68 (0.52-1.04) mg/dL Estimated GFR > 60 (>60) mL/min BUN/Creatinine Ratio 22.1 H (6-22) Glucose 139 H (80-110) mg/dL Calcium 10.1 (8.4-10.2) mg/dL Magnesium 1.5 L (1.6-2.3) mg/dL Total Bilirubin 1.1 (0.2-1.3) mg/dL AST 27 (14-36) IU/L ALT 25 (<35) IU/L Alkaline Phosphatase 83 (38-126) U/L Total Creatine Kinase 60 52 (30-135) U/L Troponin I < 0.012 < 0.012 (0.01-0.034) ng/mL NT-Pro-B Natriuret Pep 37 (<125) pg/mL Total Protein 8.7 H (6.3-8.2) g/dL Albumin 4.7 (3.5-5.0) g/dL Globulin 4.0 (1.7-4.1) g/dL Albumin/Globulin Ratio 1.2 (1.0-2.8) Lipase 72 (23-300) U/L Imaging Data Chest x-ray: Radiologist's Impression: No acute cardiopulmonary abnormality is identified ECG Data Attestation: I personally reviewed and interpreted this ECG as follows: Interpretation: Sinus rhythm with first-degree AV block Ventricular rate of 67 PA interval 308 Left bundle-branch block This is similar to description of EKG from earlier this year MDM Narrative Medical decision making narrative: Patient is now asymptomatic. Unsure whether or not it was the nitroglycerin that improve the symptoms or if the symptoms just improved on their own. This it was also difficult for the patient to describe whether or not the discomfort that she was having was actually reproducible with palpation. She was 2- troponins. An EKG that is unchanged from prior. Patient is unsure as to whether or not she has a prescription for nitroglycerin so I will provide 1 for her that she can use as needed. She was not in heart failure. X-ray shows no signs of pneumonia. Will discharge home return precautions. Patient and family expressed understanding and agreement. Discharge Plan Departure Patient Disposition: Home Clinical Impression: Atypical chest pain Instructions: DI for Atypical Chest Pain Activity Restrictions/Additional Instructions: Continue to take all of your medications as directed. If you do not have a prescription for nitroglycerin already 1 has been provided for you. You can discard the 1 that you received today if you already have a prescription for this medicine. Contact your primary doctor for follow-up. Return to the emergency department for new symptoms. Prescriptions: New nitroglycerin 0.4 mg tablet, sublingual 0.4 mg sublingual Q5-15M PRN (Reason: chest pain) Qty: 25 0RF Rx Instructions: do not exceed 3 doses per episode No Action (DME) Blood Glucose Test Strip See Rx Instructions .ROUTE .MEDSUPPLY Qty: 100 7RF Rx Instructions: Use to test blood glucose twice daily. (DME) lancets [BD Ultra Fine Lancets] 33 gauge misc See Rx Instructions .ROUTE .MEDSUPPLY Qty: 100 7RF Rx Instructions: Use to test blood glucose twice daily (DME) blood-glucose meter Misc See Rx Instructions .ROUTE .MEDSUPPLY Qty: 1 0RF Rx Instructions: Use to test blood glucose BID benzonatate 100 mg capsule 100 mg PO BID PRN (Reason: cough) Qty: 10 0RF furosemide 20 mg tablet 20 mg PO BID Qty: 180 1RF Hold Instructions: Home Medication placed on hold at Doctor's office lisinopril 20 mg tablet 20 mg PO BID Qty: 180 3RF potassium chloride 10 mEq tablet extended release 10 meq PO DAILY Qty: 90 1RF oxybutynin chloride [Ditropan XL] 5 mg tablet extended release 24hr 5 mg PO DAILY Qty: 90 1RF (DME) Accessibility Ramp See Rx Instructions .Route .MEDSUPPLY Qty: 1 0RF Rx Instructions: Please provide accommodations for safe and proper access. omega-3 fatty acids 1,250 mg capsule 1,250 mg PO DAILY Qty: 90 3RF citalopram 40 mg tablet 40 mg PO DAILY Qty: 90 4RF losartan 100 mg tablet 50 mg PO BID Qty: 180 4RF metoprolol tartrate 100 mg tablet 50 mg PO BID Qty: 180 4RF glipizide 5 mg tablet extended release 24hr See Rx Instructions .ROUTE .COMPLEX Qty: 90 1RF Dose Instruction: TAKE 1 TABLET BY MOUTH EVERY DAY Rx Instructions: TAKE 1 TABLET BY MOUTH EVERY DAY pantoprazole 20 mg tablet,delayed release (DR/EC) See Rx Instructions .ROUTE .COMPLEX Qty: 90 1RF Dose Instruction: TAKE 1 TABLET BY MOUTH EVERY DAY Rx Instructions: TAKE 1 TABLET BY MOUTH EVERY DAY pravastatin 20 mg tablet 20 mg PO BEDTIME Qty: 90 3RF nystatin 100,000 unit/gram powder 1 applic topical BID Qty: 60 1RF Rx Instructions: After washing and completing drying skin folds, apply powder to skin folds BID doxycycline hyclate 100 mg capsule 100 mg PO BID Qty: 14 0RF metformin 1,000 mg tablet See Rx Instructions .ROUTE .COMPLEX Qty: 180 0RF Dose Instruction: TAKE 1 TABLET BY MOUTH TWICE DAILY Rx Instructions: TAKE 1 TABLET BY MOUTH TWICE DAILY memantine 10 mg tablet See Rx Instructions .ROUTE .COMPLEX Qty: 180 0RF Dose Instruction: TAKE 1 TABLET BY MOUTH TWICE DAILY Rx Instructions: TAKE 1 TABLET BY MOUTH TWICE DAILY amlodipine 10 mg tablet 10 mg PO DAILY Qty: 90 1RF levothyroxine 50 mcg tablet 50 mcg PO DAILY Qty: 90 3RF Hold Instructions: Home Medication placed on hold at Doctor's office magnesium 250 mg tablet 250 mg PO DAILY multivitamin Tablet 1 tab PO DAILY ascorbic acid (vitamin C) 500 mg tablet 500 mg PO DAILY cholecalciferol (vitamin D3) 25 mcg (1,000 unit) tablet 25 mcg PO BID cranberry 1,500 mg PO BID nitroglycerin 0.4 mg tablet, sublingual 0.4 mg sublingual Q5M PRN (Reason: chest pain) Qty: 20 3RF Rx Instructions: do not exceed 3 doses per episode amoxicillin-pot clavulanate 875-125 mg tablet 1 tab PO BID Qty: 14 0RF ketoconazole 2 % cream 1 applic topical BID Qty: 60 3RF gentamicin 0.3 % drops 2 drp EYE-LEFT TID Qty: 5 0RF (DME) Diabetic Shoes See Rx Instructions .Route .MEDSUPPLY Qty: 1 0RF Rx Instructions: 1 pair as directed; please fit patient for diabetic shoes. mupirocin 2 % ointment 1 applic topical BID Qty: 15 0RF Referrals: Phu Canales, [Primary Care Provider] - Stand Alone Forms: Patient Portal/API
[2024-06-14 05:18] LABS: Alanine Aminotransferase 25 IU/L (<35); Albumin 4.7 g/dL (3.5-5.0); Albumin Globulin Ratio 1.2 (1.0-2.8); Alkaline Phosphatase 83 U/L (38-126); Aspartate Aminotransferase 27 IU/L (14-36); BUN Creatinine Ratio 22.1 (6-22); Bilirubin Total 1.1 mg/dL (0.2-1.3); Blood Urea Nitrogen 15 mg/dL (7-17); Calcium 10.1 mg/dL (8.4-10.2); Carbon Dioxide 25 mmol/L (22-32); Chloride 102 mmol/L (98-107); Creatine Kinase 60 U/L (30-135); Estimated Glomerular Filt Rate > 60 mL/min (>60); Glucose 139 mg/dL (80-110); HEMOLYSIS 17 (0-50); Lipase 72 U/L (23-300); Magnesium 1.5 mg/dL (1.6-2.3); Potassium 4.5 mmol/L (3.4-5.1); Sodium 137 mmol/L (137-145); Total Protein 8.7 g/dL (6.3-8.2)
[2024-06-14] MEDS: NITROGLYCERIN 0.4 MG SL TAB SL ×2 (05:20→05:25)
[2024-06-14 05:30] LABS: Troponin I < 0.012 ng/mL (0.01-0.034)
--- NOTE | 2024-06-14 05:38 | PC.NURSE ---
Pt has same amount of chest pressure, Denies pain. Turned to left side for comfort.
[2024-06-14 05:49] LABS: NT-proBNP (BNP-Adult 18+) 37 pg/mL (<125)
[2024-06-14 06:58] LABS: Creatine Kinase 52 U/L (30-135)
[2024-06-14 07:09] LABS: Troponin I < 0.012 ng/mL (0.01-0.034)
--- NOTE | 2024-06-14 07:45 | PC.NURSE ---
Pt oxygen saturation 88% room air while laying in bed. I encouraged pt to take some deep breathes, o2 increased to 94%. Pt denies pain. Clear lung sounds bilaterally. Alert and oriented.
--- NOTE | 2024-06-14 09:55 | PC.NURSE ---
Pure Wick removed at this time- 300cc urine output. Patient's pants shirt and bedding are soaked with urine, the depends had been cut. We do not have a depends to fit the patient. I called [facility] at this time to request they send us a depends in her size and new clothing for the patient. Transport from [facility] arrived at this time, no depends or extra clothing present. Patient agreeable to wear clothing back to facility where she can change. She transferred herself with minimal assitance using a walker to pivot to a wheelchair where sat on a chux pad. Remaining Clothing in bag given to Staff from [facility] who transported patient back to the facility. Patient's daughter and son with patient at bedside, exited and took DC paperwork with them back to her facility.
== END 2024-06-14 10:03 | disposition home or self-care (01) ==
PROVIDERS: Emergency Provider Emergency Medicine; Family Provider Family Medicine; PCP Family Medicine
DX: R07.89 Other chest pain (principal); I44.0 Atrioventricular block, first degree; I44.7 Left bundle-branch block, unspecified; Z79.899 Other long term (current) drug therapy
CPT/HCPCS: 36415; 71045; 80053; 82550; 83690; 83735; 83880; 84484; 85025; 93005; 99284

== ENCOUNTER → 2024-08-11 17:22 | Outpatient (ROUT) | payer MEDICARE, MEDICAID, SELFPAY ==
[2024-08-11 17:59] LABS: Bilirubin Urine UA 1+ (NEGATIVE); Color Urine UA YELLOW; Glucose Urine UA NEGATIVE (Negative); Ketones Urine UA TRACE (NEGATIVE); Leukocyte Esterase Urine UA 2+ (NEGATIVE); Nitrite Urine UA NEGATIVE (Negative); Occult Blood Urine UA 1+ (Negative); Protein Urine UA TRACE (Negative); Urobilinogen Urine UA 0.2 E.U./dL (0.2)
[2024-08-11 18:03] LABS: Appearance Urine UA CLOUDY; pH Urine UA 5.5 (4.5-8.0)
[2024-08-11 18:13] LABS: Bacteria Urine Few (2-10); RBC Urine 1-5/HPF (0-5/HPF); Urine Volume 10mL (spun); WBC Urine 10-30/HPF (0-5/HPF)
[2024-08-11 18:14] LABS: Squamous Epithelial Cell Urine 1-5 /HPF (0-5/HPF)
[2024-08-11 18:16] LABS: Culture Indicated Urine Specimen Cultured; Ictotest Urine Negative (Negative)
== END ==
PROVIDERS: Visit Provider Registered Nurse
DX: N39.0 Urinary tract infection, site not specified (principal); Z87.448 Personal history of other diseases of urinary system
CPT/HCPCS: 81001; 87086

== ENCOUNTER → 2024-08-23 22:05 | Outpatient (ROUT) | payer MEDICARE, MEDICAID, SELFPAY ==
[2024-08-23 22:18] LABS: Appearance Urine UA CLEAR; Bilirubin Urine UA NEGATIVE (NEGATIVE); Color Urine UA YELLOW; Glucose Urine UA NEGATIVE (Negative); Ketones Urine UA NEGATIVE (NEGATIVE); Leukocyte Esterase Urine UA 1+ (NEGATIVE); Nitrite Urine UA NEGATIVE (Negative); Occult Blood Urine UA NEGATIVE (Negative); Protein Urine UA NEGATIVE (Negative); Urobilinogen Urine UA 0.2 E.U./dL (0.2)
[2024-08-23 22:26] LABS: Bacteria Urine Few (2-10); RBC Urine None Seen (0-5/HPF); Urine Volume 10mL (spun); WBC Urine 1-5/HPF (0-5/HPF)
[2024-08-23 22:27] LABS: Culture Indicated Urine Specimen Cultured; Squamous Epithelial Cell Urine 0-1 /HPF (0-5/HPF)
== END ==
PROVIDERS: Family Provider Family Medicine; Visit Provider Registered Nurse
DX: N39.0 Urinary tract infection, site not specified (principal)
CPT/HCPCS: 81001; 87086

== ENCOUNTER → 2024-08-30 13:27 | Outpatient (ROUT) | payer MEDICARE, MEDICAID, SELFPAY ==
[2024-08-30 13:34] LABS: Appearance Urine UA CLEAR; Bilirubin Urine UA NEGATIVE (NEGATIVE); Color Urine UA YELLOW; Glucose Urine UA NEGATIVE (Negative); Ketones Urine UA NEGATIVE (NEGATIVE); Leukocyte Esterase Urine UA NEGATIVE (NEGATIVE); Nitrite Urine UA POSITIVE (Negative); Occult Blood Urine UA TRACE-INTACT (Negative); Protein Urine UA NEGATIVE (Negative); Urobilinogen Urine UA 0.2 E.U./dL (0.2)
[2024-08-30 13:36] LABS: pH Urine UA 5.5 (4.5-8.0)
[2024-08-30 14:01] LABS: Bacteria Urine Many (>30); Culture Indicated Urine Specimen Cultured; RBC Urine None Seen (0-5/HPF); Squamous Epithelial Cell Urine 1-5 /HPF (0-5/HPF); Urine Volume 10mL (spun); WBC Urine 0-1/HPF (0-5/HPF)
== END ==
PROVIDERS: Family Provider Family Medicine; Visit Provider Registered Nurse
DX: N39.0 Urinary tract infection, site not specified (principal)
CPT/HCPCS: 81001; 87077; 87086; 87186

== ENCOUNTER 2025-05-09 21:50 | Inpatient (IN) | payer MEDICARE, MEDICAID, SELFPAY ==
[2025-04-21 05:16] VITALS: BMI 59.6
[2025-05-09] VITALS (10 sets, daily range): BP systolic 138–181; BP diastolic 60–78; PULSE 71–81; RESP 18–32; TEMP 36.7; O2SAT 91–97; BMI 56.3
[2025-05-09 23:48] LABS: Add Manual Diff / Slide Review NO; Hematocrit 30.1 % (36-46); Hemoglobin 10.0 g/dL (12.0-16.0); Lymphocytes Absolute Auto 1500 /uL (1100-4500); Mean Corpuscular HGB Conc 33.3 % (30-36); Mean Corpuscular Hemoglobin 29.2 PG (26-34); Mean Corpuscular Volume 87.6 fL (80-100); Platelet Count 397 X10^3/uL (150-400)
[2025-05-09 23:55] LABS: Alanine Aminotransferase 51 IU/L (<35); Albumin 3.6 g/dL (3.5-5.0); Albumin Globulin Ratio 0.9 (1.0-2.8); Alkaline Phosphatase 96 U/L (38-126); Blood Urea Nitrogen 7 mg/dL (7-17); Calcium 9.0 mg/dL (8.4-10.2); Carbon Dioxide 26 mmol/L (22-32); Chloride 100 mmol/L (98-107); Estimated Glomerular Filt Rate > 60 mL/min (>60); Globulin 3.9 g/dL (1.7-4.1); Glucose 115 mg/dL (70-99); HEMOLYSIS < 15 (0-50); Lactate (Lactic Acid) 1.3 mmol/L (0.7-2.1); Potassium 3.6 mmol/L (3.4-5.1); Sodium 135 mmol/L (137-145); Total Protein 7.5 g/dL (6.3-8.2)
[2025-05-10] VITALS (7 sets, daily range): BP systolic 145–160; BP diastolic 69–82; PULSE 62–78; RESP 18–23; TEMP 36.1–36.3; O2SAT 93–95; BMI 56.3
--- NOTE | 2025-05-10 01:19 | ED.RECABL ---
HPI - Recheck/Abnormal Lab/Rx General Chief Complaint: Recheck/Abnormal Lab/Rx Stated Complaint: Swelling R leg Time Seen by Provider: 05/10/25 01:19 Source: patient, family and EMS Mode of arrival: EMS Limitations: no limitations History of Present Illness HPI narrative: 74-year-old female history of diabetes mellitus on oral medication, dyslipidemia, hypertension, hypothyroidism, early-onset Alzheimer's dementia, incontinence, morbid obesity, sleep apnea who presents with report of positive blood culture. Patient was recently hospitalized here with sepsis secondary to strep pyogenes with a bacteremia with cellulitis of the lower extremity, chronic lymphedema. Patient was admitted from 04/21 through 05/06 was on IV antibiotic, was being followed at [facility] but infectious disease and is currently on Rocephin, rifampin and clindamycin at her SNF.? Daughter notes that she had a pretty significant change in mentation, decreased activity but she felt that her legs were worsening again so at her [facility] in [place] was taken to the emergency department where was seen had labs, cultures drawn, urinalysis checked was found to be reassuring overall and discharged back to her facility. They were contacted after 1 of the cultures returned positive and brought to the emergency department here by family. Patient herself has a minimal complaints. Daughter notes she never had any pain in her legs. She had has some photos herself of patients lower extremities which she shared with myself. They do appear improved unclear if there worse or improved over the last several days as they are both extensively marked but dated from earlier in April. No reports of fevers, daughter states her temperature has been low at her facility. Patient reports no chest pain or shortness of breath, no nausea or vomiting. Daughter notes she has had bowel movements regularly she is unsure of the consistency but notes she had to this evening here. She uses a brief normally incontinent of urine. Patient's primary care is through her care facility. She was not [facility] but ultimately discharge to different facility. Related Data Home Medications ?Medication ?Instructions ?Recorded ?Confirmed cholecalciferol (vitamin D3) 25 25 mcg PO BID 03/19/21 04/21/25 mcg (1,000 unit) tablet cranberry 450 mg PO BID 03/19/21 04/21/25 multivitamin 1 tab PO DAILY 03/19/21 04/21/25 acetaminophen 500 mg capsule 1,000 mg PO DAILY 04/21/25 04/21/25 ammonium lactate 12 % topical cream 1 applic topical DAILY 04/21/25 04/21/25 chlorthalidone 25 mg tablet 12.5 mg PO DAILY 04/21/25 04/21/25 cyanocobalamin (vitamin B-12) 1,000 mcg PO DAILY 04/21/25 04/21/25 1,000 mcg capsule folic acid 1 mg tablet 1 mg PO DAILY 04/21/25 04/21/25 magnesium oxide 400 mg PO DAILY 04/21/25 04/21/25 sertraline 50 mg tablet 75 mg PO DAILY 04/21/25 04/21/25 spironolactone 50 mg tablet 50 mg PO DAILY 04/21/25 04/21/25 Previous Rx's ?Medication ?Instructions ?Recorded nitroglycerin 0.4 mg sublingual 0.4 mg sublingual Q5M PRN chest 07/18/21 tablet pain #20 tabs blood sugar diagnostic (Blood #100 ea 08/17/21 Glucose Test strips) blood-glucose meter #1 ea 08/17/21 lancets 33 gauge (BD Ultra Fine #100 ea 08/17/21 Lancets) Accessibility Ramp #1 ea 12/27/21 losartan 100 mg tablet 50 mg (1/2 x 100 mg) PO BID #180 02/08/22 tabs metoprolol tartrate 100 mg tablet 50 mg (1/2 x 100 mg) PO BID #180 02/08/22 tabs pravastatin 20 mg tablet 20 mg PO BEDTIME #90 tabs 05/28/22 nystatin 100,000 unit/gram topical 1 applic topical BID rash in 06/24/22 powder abdominal skin folds #60 grams Diabetic Shoes #1 ea 06/25/22 metformin 1,000 mg tablet See Rx Instructions .Route 07/16/22 .COMPLEX #180 tabs memantine 10 mg tablet See Rx Instructions .Route 07/17/22 .COMPLEX #180 tabs amlodipine 10 mg tablet 10 mg PO DAILY #90 tabs 07/19/22 Lactobacillus acidophilus 25 25,000,000 cell PO TIDWM #90 caps 05/06/25 million cell capsule ceftriaxone 2 gram intravenous 2 g IV DAILY 05/06/25 solution rifampin 300 mg capsule 600 mg (2 x 300 mg) PO DAILY #7 05/06/25 caps triamcinolone acetonide 0.5 % 1 applic topical TID #45 grams 05/06/25 topical cream Allergies Allergy/AdvReac Type Severity Reaction Status Date / Time No Known Drug Allergies Allergy Verified 08/12/24 08:33 Review of Systems Review of Systems ROS Unobtainable: All systems reviewed & are unremarkable except as noted in HPI and below Patient History Medical History Dermatophytosis Diabetic foot ulcer associated with diabetes mellitus due to underlying condition Dysuria Conjunctivitis Tinea Early onset Alzheimer's dementia Incontinence Sleep apnea Hyperlipidemia HTN (hypertension) Hypothyroidism Diabetes Social History Smoking Status: Former smoker Tobacco: How many years used: 25 quit status: quit date established alcohol intake: never substance use type: does not use Smoking Status: Former smoker Exam Narrative Exam Narrative: GENERAL: Alert and oriented to self and location, conversant, morbidly obese female in mild distress HEENT: Head normocephalic, atraumatic, EOMI, pupils reactive, face symmetric, moist mucous membranes, nasal cannula in place NECK: Supple, full range of motion CARDIOVASCULAR: Regular rate and rhythm without murmurs, rubs or gallops. RESPIRATORY: Breath sounds equal bilaterally, no wheezes rales or rhonchi. ABDOMEN: Soft, nontender. Normoactive bowel sounds all 4 quadrants. No guarding or rebound, rigidity, no mass : No CVA tenderness EXTREMITIES: Normal range of motion somewhat limited by patient's habitus, patient has significant lymphedema bilateral lower extremities, she has patches of erythema, some swelling and blistering no weeping, there is a little bit of scabbing and some portions that are patchy on both lower extremities. Patient has nontender to touch. I do not appreciate any changes to her pannus. Neurovascularly intact NEUROLOGICAL: Cranial nerves II through XII grossly intact. Moving all extremities without issue. SKIN: Warm, dry, no petechiae, no rashes or lesions otherwise noted. Initial Vital Signs Initial Vital Signs: Vital Signs Pulse Rate 81 05/09/25 21:53 Pulse Oximetry 92 05/09/25 21:53 Course Orders Ordered: ED Orders 05/09/25 23:30 Blood Culture Stat CBC Auto Diff [Complete Blood Count AUTO DIFF] Stat CMP [Comprehensive Metabolic Panel] Stat Lactate (Lactic Acid) Stat 05/10/25 01:29 Procalcitonin Stat 05/10/25 02:08 C Diff [Clostridium Difficile Tox PCR] Stat 05/10/25 03:34 Consult to Occupational Therapy Evaluate & Treat Consult to Physical Therapy Evaluate & Treat 05/11/25 06:00 Basic Metabolic Panel DAILY Complete Blood Count AUTO DIFF DAILY Acetaminophen (Acetaminophen 325 Mg Tablet) 650 mg PO Q6H PRN PRN Reason: Fever/Mild Pain (1-3) Hydrocodone Bitart/Acetaminophen (Hydrocodone/Acet 5/325 Tablet) 1 tab PO Q4H PRN PRN Reason: Pain, Moderate (4-6) Heparin Sodium (Porcine) (Heparin 5,000 Unit/Ml Vial) 5,000 unit SUBCUT BID MATTIE Naloxone HCl (Naloxone 0.4 Mg/Ml Vial) 0.2 mg IV Q2MIN PRN PRN Reason: Opiate Reversal Ondansetron HCl (Ondansetron 4 Mg/2 Ml Inj) 4 mg IV Q8HR PRN PRN Reason: Nausea And Vomiting Discontinued Medications Vancomycin HCl 1,750 mg/ (Sodium Chloride) 500 mls @ 250 mls/hr IV NOW ONE Stop: 05/10/25 04:17 Vital Signs Vital signs: Vital Signs - 8 hr 05/09/25 21:53 05/09/25 21:55 05/09/25 21:55 Temperature Pulse Rate 81 75 Respiratory Rate Blood Pressure 181/77 H Pulse Oximetry 92 94 Oxygen Delivery Method Oxygen Flow Rate 05/09/25 22:00 05/09/25 22:01 05/09/25 22:01 Temperature Pulse Rate 78 77 Respiratory Rate 31 H 29 H Blood Pressure 178/65 H Pulse Oximetry 93 97 Oxygen Delivery Method Oxygen Flow Rate 05/09/25 22:10 05/09/25 22:30 05/09/25 22:31 Temperature 98.1 F Pulse Rate 72 74 Respiratory Rate 18 29 H Blood Pressure 181/77 H 138/60 Pulse Oximetry 96 93 Oxygen Delivery Method Room Air Oxygen Flow Rate 05/09/25 22:31 05/09/25 23:00 05/09/25 23:00 Temperature Pulse Rate 71 71 Respiratory Rate 22 18 Blood Pressure 143/65 H Pulse Oximetry 94 91 Oxygen Delivery Method Oxygen Flow Rate 05/09/25 23:30 05/09/25 23:30 05/09/25 23:53 Temperature Pulse Rate 71 Respiratory Rate 32 H Blood Pressure 156/67 H 162/78 H Pulse Oximetry 92 Oxygen Delivery Method Oxygen Flow Rate 05/09/25 23:53 05/10/25 00:00 05/10/25 00:00 Temperature Pulse Rate 80 77 Respiratory Rate 26 H 23 Blood Pressure 158/69 H Pulse Oximetry 93 94 Oxygen Delivery Method Nasal Cannula Oxygen Flow Rate 2 05/10/25 00:30 Temperature Pulse Rate 70 Respiratory Rate 20 Blood Pressure Pulse Oximetry Oxygen Delivery Method Oxygen Flow Rate MDM - Recheck/Abnormal Lab/Rx Lab Data 05/09/25 23:30 05/09/25 23:30 Labs: Lab Results 05/09/25 05/10/25 Range/Units 23:30 02:08 WBC 5.9 (4.5-11.0) X10^3/uL RBC 3.43 L (4.0-5.2) X10^6/uL Hgb 10.0 L (12.0-16.0) g/dL Hct 30.1 L (36-46) % MCV 87.6 (80-100) fL MCH 29.2 (26-34) PG MCHC 33.3 (30-36) % RDW 14.8 (11.6-14.8) % Plt Count 397 (150-400) X10^3/uL Neut % (Auto) 63.1 (50-75) % Lymph % (Auto) 25.7 (25-40) % [place] % (Auto) 8.7 (3-14) % Eos % (Auto) 2.4 (2-4) % Baso % (Auto) 0.1 (0-2) % Neut # (Auto) 3700 (5708-4272) /uL Lymph # (Auto) 1500 (9077-5139) /uL [place] # (Auto) 500 (0-900) /uL Eos # (Auto) 100 (0-450) /uL Baso # (Auto) 0 (0-100) /uL Sodium 135 L (137-145) mmol/L Potassium 3.6 (3.4-5.1) mmol/L Chloride 100 (98-107) mmol/L Carbon Dioxide 26 (22-32) mmol/L BUN 7 (7-17) mg/dL Creatinine 0.60 (0.52-1.04) mg/dL Estimated GFR > 60 (>60) mL/min BUN/Creatinine Ratio 11.7 (6-22) Glucose 115 H (70-99) mg/dL Lactate 1.3 (0.7-2.1) mmol/L Calcium 9.0 (8.4-10.2) mg/dL Total Bilirubin 0.5 (0.2-1.3) mg/dL AST 55 H (14-36) IU/L ALT 51 H (<35) IU/L Alkaline Phosphatase 96 (38-126) U/L Total Protein 7.5 (6.3-8.2) g/dL Albumin 3.6 (3.5-5.0) g/dL Globulin 3.9 (1.7-4.1) g/dL Albumin/Globulin Ratio 0.9 L (1.0-2.8) Procalcitonin 0.082 (<0.5) ng/mL C. difficile Tox (PCR) Negative for c. diff (Negative) MDM Narrative Medical decision making narrative: Labs show white count of 5.9 was 5.5 on 05/06/2025, hemoglobin was 10 has been consistent with priors platelets are 397. Electrolytes are appropriate BUN creatinine normal glucose is 115 AST 65 ALT is 51, T bili is 0.5 alk-phos is 96. Patient had blood cultures repeated today. Reports single positive blood culture out of 2 from yesterday ED visit at [facility] in [place]. Staphylococcus, coagulase negative Staphylococcus on PCR. Patient was positive for strep pyogenes during her hospitalization here in April. Patient was seen had labs drawn on 05/08/2025 and was seen for concern for increasing erythema. Has been following with Infectious Disease in his currently on Rocephin, rifampin at her SNF. Per last hospitalization notes [facility] Infectious Disease discussed case and patient to follow up out patient. Patient on Rocephin IV 2 grams x 14 days to completed 05/13/25 Clindamycin 04/29-appears to have stopped 05/06 Daptomycin added 04/26 discontinued on 05/02 by ID recommendations. Rifampin 600mg added 05/01 x 14 days Patient is afebrile, labs here seem consistent with her labs on 05/08 at calling him from her records available. No rise in white count, procalcitonin is 0.082 was up to 2.39 during her hospitalization was at 0.053 initially. Lactate is normal. No electrolytes or renal function changes. Patient did have several diarrheal stools here so C diff was added on as patient is on multiple medications. C diff is negative. Patient has POLST comfort measures. She is currently at [facility] and rehab in [place] was encouraged to return to the emergency department in [place]. Patient and family present here, patient was admitted recently here 04/21/25-05/06/25. Spoke with Dr. Mcintyre accepts for inpatient. Asks for consult with Infectious Disease. Call out to Infectious Disease at [facility] @ [phone], voicemail left. Unable to reach ID tonight. Spoke with Dr. Mcintyre asks for dose of vancomycin. Discharge Plan Departure Patient Disposition: Admitted As Inpatient Clinical Impression: Cellulitis of multiple sites of lower extremity Admit Date/Time: 05/10/25 04:15 Admit Provider: Brad Mcintyre
[2025-05-10 02:02] LABS: Procalcitonin 0.082 ng/mL (<0.5)
[2025-05-10 03:14] LABS: Clostridium Difficile Tox PCR Negative for C. diff (Negative)
--- NOTE | 2025-05-10 06:15 | PM.HP.1 ---
History of Present Illness History of Present Illness Date Patient Seen: 05/10/25 Time Patient Seen: 06:16 Chief complaint: Swelling R leg Narrative: 4-year-old female with past medical history of morbid obesity, hyperlipidemia, hypertension, hypothyroidism, early onset of Alzheimer's dementia, sleep apnea and recent bacteremia presents with fatigue and positive blood culture. Of note the patient's daughter at the bedside and reports that the patient was recently admitted to the hospital and discharged on May 06, 2025 due to bacteremia. The patient supposedly was discharged on IV Rocephin and clindamycin with rifampin. The patient does have a PICC line for ongoing IV antibiotic that was given and [facility]. The patient in addition has right lower extremity cellulitis as well. On May 08, 2025 the patient again presented to [place] emergency room due to the patient having more fatigue and that her cellulitis seems to worsens in the medial aspect of her right thigh. Bed the patient had blood coat off again and the patient was sent back to her care facility when they felt that the patient was stable. However today the patient was called and states that the blood culture on May 08 came back positive for gram-positive cocci. The patient's daughter decided to bring her back to our emergency room rather than [place] for further management. Otherwise there is no report of any recent fever, chills, nausea, vomiting, diarrhea, chest pain or coughing. In the emergency room, the patient remains hemodynamically stable. Labs were relatively benign. Per our ER physician the patient's lower extremity cellulitis seems to resolve in some area but worsens in others. Another set of blood cultures were drawn. Empiric vancomycin was given due to the fact that the patient recent repeat blood culture grew out gram-positive cocci at [place] emergency room. [facility] Medical History Dermatophytosis Diabetic foot ulcer associated with diabetes mellitus due to underlying condition Dysuria Conjunctivitis Tinea Early onset Alzheimer's dementia Incontinence Sleep apnea Hyperlipidemia HTN (hypertension) Hypothyroidism Diabetes Social History household members: family and children Smoking Status: Former smoker Tobacco: How many years used: 25 quit status: quit date established alcohol intake: never substance use type: does not use Meds Home Medications and Allergies Home Medications ?Medication ?Instructions ?Recorded ?Confirmed ?Type cholecalciferol (vitamin D3) 25 25 mcg PO BID 03/19/21 04/21/25 History mcg (1,000 unit) tablet cranberry 450 mg PO BID 03/19/21 04/21/25 History multivitamin 1 tab PO DAILY 03/19/21 04/21/25 History nitroglycerin 0.4 mg sublingual 0.4 mg sublingual Q5M PRN chest 07/18/21 04/21/25 Rx tablet pain #20 tabs blood sugar diagnostic (Blood #100 ea 08/17/21 04/21/25 Rx Glucose Test strips) blood-glucose meter #1 ea 08/17/21 04/21/25 Rx lancets 33 gauge (BD Ultra Fine #100 ea 08/17/21 04/21/25 Rx Lancets) Accessibility Ramp #1 ea 12/27/21 04/21/25 Rx losartan 100 mg tablet 50 mg (1/2 x 100 mg) PO BID #180 02/08/22 04/21/25 Rx tabs metoprolol tartrate 100 mg tablet 50 mg (1/2 x 100 mg) PO BID #180 02/08/22 04/21/25 Rx tabs pravastatin 20 mg tablet 20 mg PO BEDTIME #90 tabs 05/28/22 04/21/25 Rx nystatin 100,000 unit/gram topical 1 applic topical BID rash in 06/24/22 04/21/25 Rx powder abdominal skin folds #60 grams Diabetic Shoes #1 ea 06/25/22 04/21/25 Rx metformin 1,000 mg tablet See Rx Instructions .Route 07/16/22 04/21/25 Rx .COMPLEX #180 tabs memantine 10 mg tablet See Rx Instructions .Route 07/17/22 04/21/25 Rx .COMPLEX #180 tabs amlodipine 10 mg tablet 10 mg PO DAILY #90 tabs 07/19/22 04/21/25 Rx acetaminophen 500 mg capsule 1,000 mg PO DAILY 04/21/25 04/21/25 History ammonium lactate 12 % topical cream 1 applic topical DAILY 04/21/25 04/21/25 History chlorthalidone 25 mg tablet 12.5 mg PO DAILY 04/21/25 04/21/25 History cyanocobalamin (vitamin B-12) 1,000 mcg PO DAILY 04/21/25 04/21/25 History 1,000 mcg capsule folic acid 1 mg tablet 1 mg PO DAILY 04/21/25 04/21/25 History magnesium oxide 400 mg PO DAILY 04/21/25 04/21/25 History sertraline 50 mg tablet 75 mg PO DAILY 04/21/25 04/21/25 History spironolactone 50 mg tablet 50 mg PO DAILY 04/21/25 04/21/25 History Lactobacillus acidophilus 25 25,000,000 cell PO TIDWM #90 caps 05/06/25 Rx million cell capsule ceftriaxone 2 gram intravenous 2 g IV DAILY 05/06/25 Rx solution rifampin 300 mg capsule 600 mg (2 x 300 mg) PO DAILY #7 05/06/25 Rx caps triamcinolone acetonide 0.5 % 1 applic topical TID #45 grams 05/06/25 Rx topical cream Allergies Allergy/AdvReac Type Severity Reaction Status Date / Time No Known Drug Allergies Allergy Verified 08/12/24 08:33 Review of Systems Review of Systems ROS: Yes unobtainable due to mental condition Exam Vital Signs (past 8 hours): - 05/09/25 22:30 05/09/25 22:31 05/09/25 22:31 Temperature Pulse Rate 74 71 Respiratory Rate 29 H 22 Blood Pressure 138/60 Pulse Oximetry 93 94 Oxygen Delivery Method Oxygen Flow Rate Fraction of Inspired Oxygen 05/09/25 23:00 05/09/25 23:00 05/09/25 23:30 Temperature Pulse Rate 71 Respiratory Rate 18 Blood Pressure 143/65 H 156/67 H Pulse Oximetry 91 Oxygen Delivery Method Oxygen Flow Rate Fraction of Inspired Oxygen 05/09/25 23:30 05/09/25 23:53 05/09/25 23:53 Temperature Pulse Rate 71 80 Respiratory Rate 32 H 26 H Blood Pressure 162/78 H Pulse Oximetry 92 93 Oxygen Delivery Method Oxygen Flow Rate Fraction of Inspired Oxygen 05/10/25 00:00 05/10/25 00:00 05/10/25 00:30 Temperature Pulse Rate 77 70 Respiratory Rate 23 20 Blood Pressure 158/69 H Pulse Oximetry 94 Oxygen Delivery Method Nasal Cannula Oxygen Flow Rate 2 Fraction of Inspired Oxygen 05/10/25 03:29 05/10/25 05:34 05/10/25 05:35 Temperature 97.4 F L 97.4 F L Pulse Rate 78 78 Respiratory Rate 18 19 Blood Pressure 160/82 H 160/82 H Pulse Oximetry 95 95 94 Oxygen Delivery Method Nasal Cannula Oxygen Flow Rate 2 2 2 Fraction of Inspired Oxygen 28 Fraction of Inspired Oxygen 28 SaO2/FiO2 Ratio 335 Oxygen Delivery Method Nasal Cannula Oxygen Flow Rate 2 Narrative Exam Narrative: Physical Exam: GENERAL: The patient is not in any acute distressed. Awake and alert. HEENT: Nonicteric sclerae, PERRLA, EOMI. Oropharynx clear. Moist mucous membranes. Conjunctivae appear well perfused. HEART: Regular rate and rhythm without murmurs. No lower extremities edema. LUNGS: Clear to auscultation bilaterally. No wheezing, crackles or rhonchi ABDOMEN: Soft, positive bowel sounds, nontender. SKIN: Redness in RLEs seen and less on LLEs No rash, no excessive bruising, petechiae, or purpura. NEUROLOGIC: AxO x 2. Cranial nerves II-XII intact without motor/sensory deficit. Objective Labs 05/09/25 23:30 05/09/25 23:30 Labs: Laboratory Results - last 24 hr 05/09/25 05/10/25 23:30 02:08 WBC 5.9 RBC 3.43 L Hgb 10.0 L Hct 30.1 L MCV 87.6 MCH 29.2 MCHC 33.3 RDW 14.8 Plt Count 397 Neut % (Auto) 63.1 Lymph % (Auto) 25.7 [place] % (Auto) 8.7 Eos % (Auto) 2.4 Baso % (Auto) 0.1 Neut # (Auto) 3700 Lymph # (Auto) 1500 [place] # (Auto) 500 Eos # (Auto) 100 Baso # (Auto) 0 Sodium 135 L Potassium 3.6 Chloride 100 Carbon Dioxide 26 BUN 7 Creatinine 0.60 Estimated GFR > 60 BUN/Creatinine Ratio 11.7 Glucose 115 H Lactate 1.3 Calcium 9.0 Total Bilirubin 0.5 AST 55 H ALT 51 H Alkaline Phosphatase 96 Total Protein 7.5 Albumin 3.6 Globulin 3.9 Albumin/Globulin Ratio 0.9 L Procalcitonin 0.082 C. difficile Tox (PCR) Negative for c. diff Assessment & Plan Assessment & Plan narrative: Bacteremia. Admit the patient to medical telemetry as inpatient. Of note the patient remained hemodynamically stable and not septic. The patient recently was discharged from our hospital on May 06 for bacteremia with strep pyogenes. Patient was on IV ceftriaxone and IV clindamycin as outpatient with with oral rifampin. Now repeat blood culture on May 08, 2025 grew out gram-positive cocci. Will add vancomycin empirically for now and will need to follow-up cultures final results from [place] emergency room. Consider discussing further with infectious disease if needed in the morning. Right lower extremity cellulitis. Some area in the right lower extremity cellulitis seems in but new areas such as right thigh seems to worsen. There is small redness in the left leg as well. Will continue antibiotic as above. Hypertension. Monitor blood pressure and resume home medication accordingly. Hyperlipidemia. Resume home statin. Alzheimer dementia. Resume home medication. Hypothyroidism. Resume home Synthroid. DVT prophylaxis heparin subcu. CODE STATUS DNR/DNI. Disposition likely back to care facility in 2 to 3 days - As the provider of this telehealth evaluation, requested by the patient's evaluating physician, I attest that I introduced myself to the patient, provided my credentials and determined that telemedicine via a real-time, 2 way interactive audio and video platform is an appropriate and effective means of providing this service. - I reviewed the patient's chart and had a discussion with the member of the patient's treatment team. - The patient and I mutually agreed with continuation of this evaluation via telemedicine. The patient consented for the telemedicine evaluation. - This virtual encounter was taken place from [place] by Dr. Brad Mcintyre. The patient was evaluated at [facility]. The encounter was approximately 35 minutes. The nurse was present during the entire time of the encounter and was able to assists with exam/stethoscope. Time-Based Coding :: [TOTAL MINUTES] spent with patient and on the chart (including review of chart, obtaining history, exam, reviewing outside data, placing orders, documenting exam and treatment plan, and counseling patient) on [DATE].
[2025-05-10] MEDS: cefTRIAXone 2,000 MG in SODIUM CHLORIDE 0.9% 100 ML 200 MG IV (06:33)
[2025-05-10] MEDS: CLINDAMYCIN 600 MG/50 ML PIGGYBACK 50 MG IV ×2 (07:13→19:55)
[2025-05-10] MEDS: VANCOMYCIN 1,500 MG/300 ML PIGGYBACK 200 MG IV ×2 (08:04→20:50)
[2025-05-10] MEDS: MEMANTINE HCL 5 MG TABLET PO ×2 (08:55→20:51)
[2025-05-10] MEDS: SERTRALINE 50 MG TABLET 75 MG PO (08:55)
[2025-05-10] MEDS: METOPROLOL IR 50 MG TABLET PO (08:56)
[2025-05-10] MEDS: HEPARIN 5,000 UNIT/ML VIAL 5000 UNIT SUBCUT ×2 (08:56→20:51)
--- NOTE | 2025-05-10 10:00 | PT.IIE ---
Current Diagnoses Bacteremia (05/10/25) Medical History (Last Reviewed 05/10/25 @ 01:59 by Bea Whitten DO) Conjunctivitis Dermatophytosis Diabetes Diabetic foot ulcer associated with diabetes mellitus due to underlying condition Dysuria Early onset Alzheimer's dementia HTN (hypertension) Hyperlipidemia Hypothyroidism Incontinence Sleep apnea Tinea Physical Therapy Inpatient Evaluation/Re-Eval M1 PT/OT-IP Prior Functional Status Start: 05/10/25 12:35 Freq: NEEDED Status: Active Protocol: Document 05/10/25 10:00 AB (Rec: 05/10/25 13:00 AB [id number]) Medical Review Prior Functional Status Medical History Yes Reviewed Communication able to make needs known Mobility and Gait pt's daughter provided most of pt's PLOF and home set up: daughter stated that pt was needing 2 person assist with bed mobility, transfers using a 4WW and was not ambulating at d/c to [facility] after recent hospitalization 04/21/25 -05/06/25. pt has been using a bedside commode for toileting needs with 2 person A to transfer. per daughter, pt ambulated using a 4WW when she was last here in the hospital. Social History Household Members caregiver Living Arrangements Skilled Nurse Facility Number of Floors ( One Floor Floors) Home Environment Walk in Shower Home Equipment Four Wheel Walker,Bedside Commode M2 PT-IP Current Condition Start: 05/10/25 12:35 Freq: NEEDED Status: Active Protocol: Document 05/10/25 10:00 AB (Rec: 05/10/25 13:00 AB [id number]) Physical Therapy Current Condition Current Condition Evaluation Date 05/10/25 Treatment Diagnosis LE cellulitis; difficulty in walking Onset Date 05/10/25 M3 PT-IP Subjective Start: 05/10/25 12:35 Freq: NEEDED Status: Active Protocol: Document 05/10/25 10:00 AB (Rec: 05/10/25 13:00 AB [id number]) Subjective Physical Therapy Visit Type Type Initial Evaluation Visit Start Time 10:00 Visit Stop Time 10:25 Number of ANTI TANK MISSILEMAN Visits 0 Physical Therapy Visit Comments Patient Comments agreed to get up; requested to use the toilet M4 PT-IP Mobility and Gait Start: 05/10/25 12:35 Freq: NEEDED Status: Active Protocol: Document 05/10/25 10:00 AB (Rec: 05/10/25 13:00 AB [id number]) PT-Bed Mobility Assessment Supine to Sit Supine to Sit Moderate Assistance,Head of Bed Elevated,Bedrails Scooting Scooting to Edge of Maximum Assistance Bed PT-Transfer Assessment Sit to and From Stand Sit to and from Moderate Assistance,1 Person Assistance,Use of Upper Stand Extremities Equipment Transfer Assistive Gait Belt,Front Wheeled Walker Device Orthotic/Prosthetic No Devices or Brace: Transfers Transfer Destination Bedside Commode Transfer Technique Stand Step Pivot Transfer Ability Level of Assist Moderate Assistance,1 Person Assistance,Use of Upper Extremities Comments Mobility Comments pt in bed and daughter in room. obtained PLOF and home set up. Daughter provided info per pt's request. O2 sat with 2L/min supplemental O2: 95% completed supine to sit mod A and cues with HOB elevated and pt used bed rail to assist. able to sit on EOB CGA. max A x 2 for scooting to EOB. pt requested to use the toilet. bedside commode positioned next to pt. sit to stand from bed mod A and cues and pt was able to step pivot to the commode mod A using FWW. pt needing a few minutes to use the toilet. Left pt with NAC to assist. PT-Balance Assessment Sitting Balance and Reactions Static Sitting Good Balance Ability Dynamic Sitting Fair Balance Ability Standing Balance and Reactions Static Standing Fair Balance Ability Dynamic Standing Fair Balance Ability Device Used FWW M5 PT-IP Objective Assessments Start: 05/10/25 12:35 Freq: NEEDED Status: Active Protocol: Document 05/10/25 10:00 AB (Rec: 05/10/25 13:00 AB [id number]) Orientation Orientation/Cognition Level of Alertness Alert Orientation Name Language Function Hard of Hearing Ability Safety Awareness Decreased Safety Awareness Memory Description Short Term Impaired,Assisted Impaired Strength Lower Extremity Strength Assessment Bilaterally Impaired Hip 3-/5 Knee 3+/5 Muscle Tone Muscle Tone WNL Yes M6 PT-IP Treatment Start: 05/10/25 12:35 Freq: NEEDED Status: Active Protocol: Document 05/10/25 10:00 AB (Rec: 05/10/25 13:00 AB [id number]) Physical Therapy Treatment Education Education Provided Safety M7 PT-IP Assessment and Plan Start: 05/10/25 12:35 Freq: NEEDED Status: Active Protocol: Document 05/10/25 10:00 AB (Rec: 05/10/25 13:00 AB [id number]) PT Summary Assessment and Plan Potential Rehabilitation Fair Potential Status of Condition Evolving at Evaluation Summary Impairments Pain,ROM,Strength,Balance,Coordination,Sensation,Tone, Cognition,Bed Mobility,Transfers,Gait,Activity Tolerance Assessment Summary pt is a 74 y/o F who is admitted for LE cellulitis. pt with recent hospital admission 04/21/25-05/06/25 for sepsis. pt requiring mod A for step transfer using FWW bed to bedside commode but needing 2 person assist to scoot to EOB. pt lives at [facility] and plans to go back there on d/c. Will continue PT in hospital to improve overall strength and mobility . Goals Bed Mobility Goal Minimal Assistance Transfer Goal Minimal Assistance,Front Wheeled Walker,Four Wheeled Walker Gait Goal Minimal Assistance,Front Wheel Walker,Four Wheel Walker Gait Distance 25 Other Goals improve bed mobility, transfers, ambulation using 4WW ~ 50 ft CGA Days to Meet Goals 10 Frequency of Treatment Frequency Of Once a Day Treatment Treatment Plan Physical Therapy Bed Mobility Training,Transfer Training,Gait Training, Treatment Plan Therapeutic Exercise,Balance Retraining,Discharge Planning,Hot or Cold Pack,Neuromuscular Re-ed, Coordination Retraining,Manual Therapy Recommendations To Nursing Amount of Assist 2 Person Assist Needed Discharge Recommendations PT Discharge SNF Rehab Recommendations Transportation Needs Wheelchair/Cabulance,Stretcher/Ambulance at Discharge - PT assist 2
[2025-05-10] MEDS: NYSTATIN POWDER 15GM 1 APPLIC TOP ×2 (11:00→20:52)
--- NOTE | 2025-05-10 11:24 | OT.IPNOTE ---
Pt just got back to bed with nursing and PT and too tired to participate in OT at this time. Noted pt seems to be overall weaker per nursing, to try again tomorrow. Able to place trapeze bar for pt to assist in positioning only. Pt aware not to place all her weight on it.
--- NOTE | 2025-05-10 11:51 | P.PN_ITS ---
Subjective Subjective Date Patient Seen: 05/10/25 Interval history: Chief complaint: Cellulitis recent streptococcal pyogenes bacteremia cleared altered mentation History of present illness: 05/09: 74-year-old female with past medical history of morbid obesity, hyperlipidemia, hypertension, hypothyroidism, early onset of Alzheimer's dementia, sleep apnea and recent bacteremia presents with fatigue and positive blood culture. Of note the patient's daughter at the bedside and reports that the patient was recently admitted to the hospital and discharged on May 06, 2025 due to bacteremia. The patient supposedly was discharged on IV Rocephin and clindamycin and oral rifampin---[I believe clindamycin was actually not continued]. The patient does have a PICC line for ongoing IV antibiotic that was given [facility]. The patient in addition has right lower extremity cellulitis as well. On May 08, 2025 the patient again presented to [facility] emergency room due to the patient having more fatigue and that her cellulitis seems to worsen [by the daughter's recollection] in the medial aspect of her right thigh. Bed the patient had blood culture again and the patient was sent back to her care facility when they felt that the patient was stable. However today the patient was called and states that the blood culture on May 08 came back positive for gram-positive cocci. The patient's daughter decided to bring her back to our emergency room rather than [facility] for further management. Otherwise there is no report of any recent fever, chills, nausea, vomiting, diarrhea, chest pain or coughing. [Blood culture at [facility] was in fact 1 detection of coag- negative staph] In the emergency room, the patient remains hemodynamically stable. Labs were relatively benign. Per our ER physician the patient's lower extremity cellulitis seems to resolve in some area but worsens in others. Another set of blood cultures were drawn. Empiric vancomycin was given due to the fact that the patient recent repeat blood culture grew out gram-positive cocci at [facility] emergency room. Patient was admitted by the salt maker on ceftriaxone oral rifampin started clindamycin and vancomycin repeat blood cultures were drawn Important to note that procalcitonin was reduced (04/26 -2.39, 04/27 -1.51, 05/09 -0.082) Hospital course: 05/10: Overnight there were no events hard copy of the records were obtained and was negative for DNA detection of coagulation staff all other DNA were negative including Streptococcus pyogenes Patient in no acute distress alert and cogent at the time of my examination Heart and lungs sounds are distant as per usual the skin erythema is now just very faintly pink and in much smaller areas than my last evaluation Review of systems: No sweats chills rigors No chest pain No nausea vomiting Appetite normal Physical exam: No acute distress Heart and lungs clear Abdomen is benign Right lower extremity with fading and much smaller areas of pinkness Nonfocal neurologic examination Assessment and plan: Refractory cellulitis which has been actually responding well to the ceftriaxone clindamycin and oral rifampin at the time of discharge and I believe the plan was to [facility]06 on just IV ceftriaxone and rifampin. * Continue Rocephin and rifampin for now * Continue vancomycin and clindamycin for now but these probably can be discontinued Streptococcus pyogenes bacteremia * DNA detection, (not blood culture) at [facility] was of coag- negative staph. Streptococcus pyogenes DNA screening was part of the panel and this was negative * Repeat blood cultures from yesterday we will be monitored * Plan is to deescalate off of vancomycin clindamycin and discontinue with ceftriaxone rifampin and continue to monitor clinical progress * Procalcitonin is de-escalated from prior readings this admission suggesting that the infection is responding has been responding Fatigue and cognitive fluctuations * This was interpreted as encephalopathy due to toxemia by the daughter which is quite reasonable given recent medical history * Favor other causes, however such as hypoglycemia due to metformin and in a demented patient would avoid using this in the future as this may confound the clinical picture Type 2 diabetes * Stable * Sliding scale insulin only at this time Past medical history: * Chronic lymphedema * Dermatophytosis * Diabetic foot ulcer associated with diabetes mellitus due to underlying condition * Early onset Alzheimer's dementia * Sleep apnea * Hyperlipidemia * HTN (hypertension) * Hypothyroidism DVT prophylaxis: * Enoxaparin Code status: * Full code Disposition: 55 minutes were involved management of this patient including discussion with patient's family physical examination review of charting reviewing of objective laboratory and imaging findings extensive research records and review current clinical evaluation [id number] physical examination and discussion with daughter Exam Vital Signs (past 8 hours): - 05/10/25 05:34 05/10/25 05:35 05/10/25 08:54 Temperature 97.4 F L Pulse Rate 78 Respiratory Rate 19 Blood Pressure 160/82 H Pulse Oximetry 95 94 93 Oxygen Delivery Method Nasal Cannula Nasal Cannula Oxygen Flow Rate 2 2 2 Fraction of Inspired Oxygen 28 28 Fraction of Inspired Oxygen 28 SaO2/FiO2 Ratio 332 Oxygen Delivery Method Nasal Cannula Oxygen Flow Rate 2 Objective Labs 05/09/25 23:30 05/09/25 23:30 Labs: Laboratory Results - last 24 hr 05/09/25 05/10/25 05/10/25 23:30 02:08 07:46 WBC 5.9 RBC 3.43 L Hgb 10.0 L Hct 30.1 L MCV 87.6 MCH 29.2 MCHC 33.3 RDW 14.8 Plt Count 397 Neut % (Auto) 63.1 Lymph % (Auto) 25.7 Norman % (Auto) 8.7 Eos % (Auto) 2.4 Baso % (Auto) 0.1 Neut # (Auto) 3700 Lymph # (Auto) 1500 Norman # (Auto) 500 Eos # (Auto) 100 Baso # (Auto) 0 Sodium 135 L Potassium 3.6 Chloride 100 Carbon Dioxide 26 BUN 7 Creatinine 0.60 Estimated GFR > 60 BUN/Creatinine Ratio 11.7 Glucose 115 H POC Whole Bld Glucose 121 H Lactate 1.3 Calcium 9.0 Total Bilirubin 0.5 AST 55 H ALT 51 H Alkaline Phosphatase 96 Total Protein 7.5 Albumin 3.6 Globulin 3.9 Albumin/Globulin Ratio 0.9 L Procalcitonin 0.082 C. difficile Tox (PCR) Negative for c. diff [facility] Medical History Dermatophytosis Diabetic foot ulcer associated with diabetes mellitus due to underlying condition Dysuria Conjunctivitis Tinea Early onset Alzheimer's dementia Incontinence Sleep apnea Hyperlipidemia HTN (hypertension) Hypothyroidism Diabetes Social History household members: caregiver Smoking Status: Former smoker Tobacco: How many years used: 25 quit status: quit date established alcohol intake: never substance use type: does not use Assessment & Plan Time-Based Coding :: [TOTAL MINUTES] spent with patient and on the chart (including review of chart, obtaining history, exam, reviewing outside data, placing orders, documenting exam and treatment plan, and counseling patient) on [DATE].
--- NOTE | 2025-05-10 13:03 | DI.CT.S_ITS ---
PROCEDURE: CT SOFT TISSUE NECK W CON INDICATIONS: Concern for jaw infection from tooth abscess TECHNIQUE: After the administration of intravenous contrast, 3.0 mm axial sections acquired from the sella to the aortic arch. Additional oblique axial 3.0 mm sections acquired through the pharynx. 3 mm thick coronal and sagittal reformats were generated. For radiation dose reduction, the following was used: automated exposure control. COMPARISON: [facility], CT, CT CHEST ABD PEL W CON, 04/21/2025, 2:38. [facility], CR, XR CHEST 1V, 04/25/2025, 14:31. FINDINGS: Image quality: There is artifact associated with the metallic hardware. Lymph nodes: No enlarged lymph nodes seen throughout the neck. Vessels: Visualized vasculature appears patent. Neck spaces: The oropharynx, nasopharynx, and pharynx demonstrate no mucosal lesions. The vocal cords, false vocal cords, pyriform sinuses, epiglottis, vallecula, and tongue base all appear normal. Extramucosal spaces appear unremarkable. Glands: The parotid and submandibular glands appear normal. Thyroid gland demonstrates no significant abnormality. Miscellaneous: Visualized brain and orbits appear normal. Lung apices appear clear. Superficial soft tissues appear normal. Bones: In this patient with this given history, scrutiny is given to the mandible. No findings of mandibular erosions can be seen. No erosions of the maxilla are identified. This patient has no teeth. Dentures are seen. No suspicious bony lesions. Visualized sinuses and mastoids appear unremarkable. Nasal septal perforation is seen, as on series 2, image 23. A right-sided PICC line is partially seen. IMPRESSION: No mandibular erosions are seen. No soft tissue abscess is seen. Dictated by: Zaid George M.D. on 05/10/2025 at 12:47 Approved by: Zaid George M.D. on 05/10/2025 at 12:51
--- NOTE | 2025-05-10 14:03 | CM.DANOTE ---
Initial DCP Assessment Visit Note Reviewed EMR and team rounds for pt's medical status and updates. Met with pt briefly, but had a lengthy conversation with her DIL-Mary Alice, and son, Adams re: preferences for SNF rehab, with plan for transition to LTC. Sent referral to [facility] for review. Pt had been living with her son and DIL, however she had become too debilitated and developed cellulitis from her SNF placement at [facility]. She was in from 04/21-05/06/25, discharged to [facility] in [place], then became worse, went to [facility], was sent back to [facility], then called to return to [facility] for positive cultures/need for IV ABO's. [facility] instead had BLS bring her back to . She will likely need several days of IV ABO's. Sent referral to [facility] for review. Family are hoping that pt can transition to LTC following rehab and remain at [facility], if she's accepted. Pending response. Payor: TRUDI RUTHERFORD PCP: Dr. Phu Canales Discharge Planning/Care Management CM Discharge Assessment Start: 05/10/25 04:55 Freq: Status: Active Protocol: Document 05/10/25 14:00 DPL (Rec: 05/10/25 14:03 DPL [id number]) Discharge Planning Assessment Assigned Discharge SANDY Zamora Central Station Operator Advance Directives? Yes: advance directive Advance Directives No on File History Provided By Patient,Family Member,Medical Record Has Patient been No admitted in last 30 days? Prior Living Skilled Nurse Facility Arrangements Household Members none Type of Relies on Others transporation used prior to admit Facility Name [facility] Admitted From: Willing to Return to No: Family working on a closer location. Facility? Independent with ADL No 's Is patient alert and Yes oriented? Needs Assistance Bathing,Grooming,Meal Prep,Toileting,Managing With Medications Caregiver for No Another Community Services IV Therapy,Wound Care used prior to admission: DME Already Rented / [place] Bench,Wheelchair,Elevated Toilet Seat Owned Patient/Family Detention Facility Preference Barriers to No Discharge Discharge Plan Detention Facility Community Services IV Therapy,Wound Care Referrals Initiated Detention If patient plan is No SNF: Has PASSR been completed? Inpatient Status as 05/10/25 of Medicare Choice List Yes Provided Medicare choice list family reviewed on electronic tablet with SNF/HH Preference [facility] Has Agency SNF been Yes contacted Whiteboard Updated Yes in Patient Room with name and ext. # of Sap Technical Developer Review Status In Process Please Provide Date 05/10/25 Initial DC Assessment Was Performed
[2025-05-10] MEDS: PRAVASTATIN 20 MG TABLET PO (20:51)
[2025-05-11] MEDS: CLINDAMYCIN 600 MG/50 ML PIGGYBACK 50 MG IV ×3 (04:29→20:21)
--- NOTE | 2025-05-11 04:56 | DI.RAD.S_ITS ---
PROCEDURE: XR CHEST 1V INDICATIONS: Shortness of Breath TECHNIQUE: One view of the chest was acquired. COMPARISON: [facility], CR, XR CHEST 1V, 04/25/2025, 14:31. [facility], CT, CT CHEST ABD PEL W CON, 04/21/2025, 2:38. [facility], CR, XR CHEST FOR PICC 1V, 05/02/2025, 16:49. FINDINGS: Surgical changes and devices: Right-sided PICC line with the catheter tip not well seen.. Lungs and pleura: No consolidation identified. Diffuse prominent pulmonary markings. Suspected Oscar B lines. No significant pleural effusion. No pneumothorax. Mediastinum: Mediastinal contours appear unchanged. Heart size is within normal limits. Bones and chest wall: No suspicious bony lesions. Overlying soft tissues appear unremarkable. IMPRESSION: Diffuse prominent pulmonary markings. Suspicious for mild pulmonary edema/fluid overload. Appears improved compared to 05/02/2025. Also in the differential diagnosis is viral/atypical pneumonia or bronchitis. Minor discrepancy with the overnight preliminary interpretation. Pulmonary edema is in the differential diagnosis. Dictated by: Jasbir Benton M.D. on 05/11/2025 at 7:59 Approved by: Jasbir Benton M.D. on 05/11/2025 at 8:05
[2025-05-11] MEDS: ALBUTEROL/IPRATROPIUM 3 ML AMPUL INH (05:35)
[2025-05-11] MEDS: cefTRIAXone 2,000 MG in SODIUM CHLORIDE 0.9% 100 ML 200 MG IV (06:26)
[2025-05-11 07:02] LABS: Add Manual Diff / Slide Review NO; Hematocrit 31.6 % (36-46); Hemoglobin 10.3 g/dL (12.0-16.0); Lymphocytes Absolute Auto 1600 /uL (1100-4500); Mean Corpuscular HGB Conc 32.6 % (30-36); Mean Corpuscular Hemoglobin 28.8 PG (26-34); Mean Corpuscular Volume 88.2 fL (80-100); Platelet Count 341 X10^3/uL (150-400)
[2025-05-11 07:13] LABS: Blood Urea Nitrogen 4 mg/dL (7-17); Calcium 8.8 mg/dL (8.4-10.2); Carbon Dioxide 27 mmol/L (22-32); Chloride 102 mmol/L (98-107); Estimated Glomerular Filt Rate > 60 mL/min (>60); Glucose 134 mg/dL (70-99); HEMOLYSIS 47 (0-50); Potassium 3.3 mmol/L (3.4-5.1); Sodium 135 mmol/L (137-145)
[2025-05-11 08:00] VITALS: BP 145/67; PULSE 74; RESP 19; TEMP 36.9; O2SAT 96
[2025-05-11] MEDS: INSULIN LISPRO 100 UNIT/ML 3ML VIAL SUBCUT ×3 (08:00→17:13)
[2025-05-11] MEDS: SERTRALINE 50 MG TABLET 75 MG PO (09:02)
[2025-05-11] MEDS: VANCOMYCIN 1,500 MG/300 ML PIGGYBACK 200 MG IV (09:02)
[2025-05-11] MEDS: METOPROLOL IR 50 MG TABLET PO ×2 (09:03→20:21)
[2025-05-11] MEDS: HEPARIN 5,000 UNIT/ML VIAL 5000 UNIT SUBCUT ×2 (09:03→20:21)
[2025-05-11] MEDS: ACETAMINOPHEN 325 MG TABLET 650 MG PO ×2 (09:34→17:12)
[2025-05-11] MEDS: MEMANTINE HCL 5 MG TABLET PO ×2 (09:35→20:23)
[2025-05-11] MEDS: NYSTATIN POWDER 15GM 1 APPLIC TOP ×2 (09:35→20:23)
[2025-05-11] MEDS: POTASSIUM CHLORIDE 20 MEQ TAB 40 MEQ PO ×2 (10:40→17:12)
--- NOTE | 2025-05-11 11:45 | PT.IPTN ---
Current Diagnoses Bacteremia (05/10/25) Physical Therapy Treatment Note M2 PT-IP Current Condition Start: 05/10/25 12:35 Freq: NEEDED Status: Active Protocol: Document 05/10/25 10:00 AB (Rec: 05/10/25 13:00 AB [id number]) Physical Therapy Current Condition Current Condition Evaluation Date 05/10/25 Treatment Diagnosis LE cellulitis; difficulty in walking Onset Date 05/10/25 M3 PT-IP Subjective Start: 05/10/25 12:35 Freq: NEEDED Status: Active Protocol: Document 05/11/25 11:45 AB (Rec: 05/11/25 12:23 AB [id number]) Subjective Physical Therapy Visit Type Type Treatment Note Visit Start Time 11:45 Visit Stop Time 12:00 Number of BECK OPERATOR Visits 0 M4 PT-IP Mobility and Gait Start: 05/10/25 12:35 Freq: NEEDED Status: Active Protocol: Document 05/11/25 11:45 AB (Rec: 05/11/25 12:23 AB [id number]) PT-Transfer Assessment Sit to and From Stand Sit to and from Contact Guard Assistance,Minimal Assistance,1 Person Stand Assistance,Use of Upper Extremities Equipment Transfer Assistive Gait Belt,Front Wheeled Walker Device Orthotic/Prosthetic No Devices or Brace: Gait Assessment Gait Gait Assistance Contact Guard Assist Required: Distance (Feet) 30 Able to Maintain Yes Weight Bearing Status During Gait Assistive Devices Assistive Device Gait Belt,Front Wheeled Walker Orthotic/Prosthetic No Devices or Brace: Gait Deviations General Gait Pattern Decreased Stride Length,Decreased Feet Clearance Factors Limiting Gait Function Factors Limiting Decreased Activity Tolerance,Decreased Strength, Gait Function Difficulty Following Directions,Poor Balance,Poor Safety Awareness Comments Gait Comments pt sitting on the chair and just completed OT but agreed to ambulate with PT. completed sit to stand min A and ambulated in room using FWW CGA ~ 30 ft. pt sat back on chair. Pt completed sit to stand again CGA from the chair for NAC to be able to put purewick back on. positioned pt on the chair for lunch. call light and table placed within reach. M5 PT-IP Objective Assessments Start: 05/10/25 12:35 Freq: NEEDED Status: Active Protocol: Document 05/10/25 10:00 AB (Rec: 05/10/25 13:00 AB [id number]) Orientation Orientation/Cognition Level of Alertness Alert Orientation Name Language Function Hard of Hearing Ability Safety Awareness Decreased Safety Awareness Memory Description Short Term Impaired,Habitat Biologist Impaired Strength Lower Extremity Strength Assessment Bilaterally Impaired Hip 3-/5 Knee 3+/5 Muscle Tone Muscle Tone WNL Yes M6 PT-IP Treatment Start: 05/10/25 12:35 Freq: NEEDED Status: Active Protocol: Document 05/11/25 11:45 AB (Rec: 05/11/25 12:23 AB [id number]) Physical Therapy Treatment Education Education Provided Safety M7 PT-IP Assessment and Plan Start: 05/10/25 12:35 Freq: NEEDED Status: Active Protocol: Document 05/11/25 11:45 AB (Rec: 05/11/25 12:23 AB [id number]) PT Summary Assessment and Plan Potential Rehabilitation Good Potential Summary Impairments Pain,ROM,Strength,Balance,Coordination,Sensation, Cognition,Bed Mobility,Transfers,Gait,Activity Tolerance Progress Towards Slow Progress due to Medical Issues,Slow Progress due Goals to Activity Tolerance Assessment Summary pt improving with mobility and was able to ambulate in room today using FWW ~ 30 ft CGA. pt will need more therapy to improve overall strength and mobility independence and will benefit from SNF rehab. Goals Bed Mobility Goal Minimal Assistance Transfer Goal Minimal Assistance,Front Wheeled Walker,Four Wheeled Walker Gait Goal Minimal Assistance,Front Wheel Walker,Four Wheel Walker Gait Distance 25 Other Goals improve bed mobility, transfers, ambulation using 4WW ~ 50 ft CGA Days to Meet Goals 10 Frequency of Treatment Frequency Of Once a Day Treatment Treatment Plan Physical Therapy Bed Mobility Training,Transfer Training,Gait Training, Treatment Plan Therapeutic Exercise,Balance Retraining,Discharge Planning,Hot or Cold Pack,Neuromuscular Re-ed, Coordination Retraining,Manual Therapy Recommendations To Nursing Amount of Assist 1 Person Assist Needed Discharge Recommendations PT Discharge SNF Rehab Recommendations Transportation Needs Wheelchair/Cabulance,Stretcher/Ambulance at Discharge - PT assist 1
--- NOTE | 2025-05-11 11:47 | OT.IP.EVAL ---
Current Diagnoses Bacteremia (05/10/25) Past Medical History (Last Reviewed 05/10/25 @ 01:59 by Bea Whitten DO) Conjunctivitis Dermatophytosis Diabetes Diabetic foot ulcer associated with diabetes mellitus due to underlying condition Dysuria Early onset Alzheimer's dementia HTN (hypertension) Hyperlipidemia Hypothyroidism Incontinence Sleep apnea Tinea Occupational Therapy Inpatient Evaluation/Re-Eval M1 PT/OT-IP Prior Functional Status Start: 05/10/25 12:35 Freq: NEEDED Status: Active Protocol: Document 05/11/25 11:24 [facility] (Rec: 05/11/25 13:04 [facility] Desktop) Medical Review Prior Functional Status Medical History Yes Reviewed Communication able to make needs known Mobility and Gait pt's daughter provided most of pt's PLOF and home set up: daughter stated that pt was needing 2 person assist with bed mobility, transfers using a 4WW and was not ambulating at d/c to [facility] after recent hospitalization 04/21/25 -05/06/25. pt has been using a bedside commode for toileting needs with 2 person A to transfer. per daughter, pt ambulated using a 4WW when she was last here in the hospital. Activities of Daily Pt prior to all her hospitalizations able to do eat on Living and IADL's her own and get to the toilet on her own with assisted device. Social History Household Members none Living Arrangements Skilled Nurse Facility Number of Floors ( One Floor Floors) Home Environment Walk in Shower Home Equipment Four Wheel Walker,Bedside Commode M2 OT-IP Current Condition Start: 05/11/25 12:36 Freq: Status: Active Protocol: Document 05/11/25 11:24 [facility] (Rec: 05/11/25 13:04 [facility] Desktop) Occupational Therapy Current Condition Current Condition Evaluation Date 05/11/25 Treatment Diagnosis LE cellulilis Diagnosis Onset Date 05/09/25 M3 OT- IP Subjective and Pain Start: 05/11/25 12:36 Freq: Status: Active Protocol: Document 05/11/25 11:24 [facility] (Rec: 05/11/25 13:04 [facility] Desktop) OT- Subjective Occupational Therapy Visit Type Type Initial Evaluation Visit Start Time 11:24 Visit Stop Time 11:47 Occupational Therapy Visit Comments Patient Comments Pt needing encouragement and agreed to get up to the BSC. Patient/Caregiver TO get better. Goals OT Pain Assessment Pain When Pain Assessed During Mobility Pain Present Pain Present Pain Reported Location Right leg Pain Behaviors Facial Grimacing M4 OT- IP ADL's Start: 05/11/25 12:36 Freq: Status: Active Protocol: Document 05/11/25 11:24 [facility] (Rec: 05/11/25 13:04 [facility] Desktop) OT [id number] Comments OT Self-Feeding Not at meal time. Comments OT ADL-Grooming Comments OT Grooming Comments Pt needing assist due to limited AROM with her BUE. OT ADL-Oral Care Comments Oral Care Comments Pt adamantly refusing to do . OT ADL-Dressing General Eval Lower Body Dressing Maximum Assistance Ability OT ADL-Toileting General Evaluation Toileting Ability Maximum Assistance Comments OT Toileting EPIFANIO with FWW to transfer and MAXA for all hygiene Comments needs. OT ADL-Bathing Comments OT Bathing Comments Pt will benefit from assist. M5 OT- IP IADL's Start: 05/11/25 12:36 Freq: Status: Active Protocol: Document 05/11/25 11:24 [facility] (Rec: 05/11/25 13:04 [facility] Desktop) OT-Instrumental Activities of Daily Living Home Safety Awareness Awareness of Need Decreased Awareness for Assistance at Home Home Safety Comments Pt does not initiate request for assist and has to be asked during OT eval. Medication Management Medication Caregiver Administers Management Money Management Money Management Caregiver Provides Assistance Meal Preparation Meal Preparation Caregiver Provides Assist Associate Director Regulatory Affairs Associate Director Regulatory Affairs Caregiver Provides Assist Driving Driving Caregiver Provides Assist M6 OT- IP Functional Cognition Start: 05/11/25 12:36 Freq: Status: Active Protocol: Document 05/11/25 11:24 [facility] (Rec: 05/11/25 13:04 [facility] Desktop) Cognitive Factors Limiting Selfcare Function Cognitive Ability Level of Alertness Alert Patient Orientation Name,Place,Situation Attention Span Capable of Focused Attention,Capable of Sustained Ability Attention Ability to Follow Able to Follow One Step Commands with Increased Time, Commands Able to Follow One Step Commands with Repetition Memory Description Short Term Impaired Cognitive Comments Cognitive Assessment Pt needing encouragement and safety cues to follow. Pt Comments is very resistant to doing her oral care needs even after explanation of the importance of it. M7 OT- IP Mobility and Balance Start: 05/11/25 12:36 Freq: Status: Active Protocol: Document 05/11/25 11:24 [facility] (Rec: 05/11/25 13:04 [facility] Desktop) OT-Transfer Assessment Sit to and From Stand Sit to and from Minimal Assistance,Moderate Assistance Stand Transfers Transfer Ability Minimal Assistance Technique Transfer Destination Bedside Commode,Chair Transfer Technique Stand Step Pivot Devices Transfer Assistive Gait Belt,Front Wheeled Walker Devices Comments Mobility Comments Pt needing from EPIFANIO to MODA to stand pending on the height of the surface. Once on her feet just needing CGA to EPIFANIO with the fww for the transfer. OT- Balance Assessment Sitting Balance and Reactions Static Sitting Good Balance Ability Dynamic Sitting Good Balance Ability Standing Balance and Reactions Static Standing Good Balance Ability Dynamic Standing Fair Balance Ability M8 OT- IP Objective Assessments Start: 05/11/25 12:36 Freq: Status: Active Protocol: Document 05/11/25 11:24 [facility] (Rec: 05/11/25 13:04 [facility] Desktop) OT Gross Range of Motion Upper Extremity Range of Motion Assessment Bilaterally Impaired OT Strength Upper Extremity Strength Assessment Bilaterally Impaired Shoulder 3- Elbow 4- Forearm 4- Wrist 4- Hand 4- M9 OT- IP Assessment and Plan Start: 05/11/25 12:36 Freq: Status: Active Protocol: Document 05/11/25 11:24 [facility] (Rec: 05/11/25 13:04 [facility] Desktop) OT Summary Assessment and Plan Potential Rehabilitation Good Potential Analytic Complexity Moderate at Evaluation Summary OT Impairments Pain,Range of Motion,Strength,Balance,Functional Cognition,Functional Mobility,Self-Feeding,Grooming, Toilet Transfers,Shower Transfers,Activity Tolerance Progress Towards Progressing Toward Goals Goals Assessment Summary Pt MOD complexity and main barriers are pain and needing assist for mobility needs to stand and transfer with one person coming from the recliner. Pt also needing much encouragement to initiate and try to do her grooming and oral care needs. Pt to go back to skilled rehab when medically stable. Goals Grooming Goal Standby Assistance Toilet Transfer Goal Standby Assistance Shower Transfer Goal Standby Assistance Days to Meet Goals 15 Frequency of Treatment Other frequency 5x/week Treatment Plan OT Treatment Plan ADL Training,Functional Cognition Training,Functional Mobility,Patient/Family Education,Discharge Planning Discharge Recommendations OT Discharge SNF Rehab Recommendations Transportation Needs Stretcher/Ambulance at Discharge
--- NOTE | 2025-05-11 13:34 | CM.DPC ---
DCP Cont. Reviewed EMR and team rounds for pt's medical status and updates. Called [facility] to clarify if they had received her clinicals and referral yesterday, which they did not. Re-faxed clinicals for their review. Pt is not yet stable for d/c, anticipate a few more days inpt. BEATRICE: not yet known.
--- NOTE | 2025-05-11 15:25 | P.PN_ITS ---
Subjective Subjective Date Patient Seen: 05/11/25 Interval history: Chief complaint: Cellulitis previous bacteremia with Streptococcus pyogenes History of present illness: 05/09: 74-year-old female with past medical history of morbid obesity, hyperlipidemia, hypertension, hypothyroidism, early onset of Alzheimer's dementia, sleep apnea and recent bacteremia presents with fatigue and positive blood culture. Of note the patient's daughter at the bedside and reports that the patient was recently admitted to the hospital and discharged on May 06, 2025 due to bacteremia. The patient supposedly was discharged on IV Rocephin and clindamycin and oral rifampin---[I believe clindamycin was actually not continued]. The patient does have a PICC line for ongoing IV antibiotic that was given and Center. The patient in addition has right lower extremity cellulitis as well. On May 08, 2025 the patient again presented to [facility] emergency room due to the patient having more fatigue and that her cellulitis seems to worsen [by the daughter's recollection] in the medial aspect of her right thigh. Bed the patient had blood culture again and the patient was sent back to her care facility when they felt that the patient was stable. However today the patient was called and states that the blood culture on May 08 came back positive for gram-positive cocci. The patient's daughter decided to bring her back to our emergency room rather than [facility] for further management. Otherwise there is no report of any recent fever, chills, nausea, vomiting, diarrhea, chest pain or coughing. [Blood culture at [facility] was in fact 1 detection of coag- negative staph] In the emergency room, the patient remains hemodynamically stable. Labs were relatively benign. Per our ER physician the patient's lower extremity cellulitis seems to resolve in some area but worsens in others. Another set of blood cultures were drawn. Empiric vancomycin was given due to the fact that the patient recent repeat blood culture grew out gram-positive cocci at [facility] emergency room. Patient was admitted by the speech pathologist on ceftriaxone oral rifampin started clindamycin and vancomycin repeat blood cultures were drawn Important to note that procalcitonin was reduced (04/26 -2.39, 04/27 -1.51, 05/09 -0.082) Hospital course: 05/10: Overnight there were no events hard copy of the records were obtained and was negative for DNA detection of coagulation staff all other DNA were negative including Streptococcus pyogenes Patient in no acute distress alert and cogent at the time of my examination Heart and lungs sounds are distant as per usual the skin erythema is now just very faintly pink and in much smaller areas than my last evaluation 05/11: No events overnight no acute problem reported tolerating medication Review of systems: Just feeling tired today No sweats chills rigors No chest pain No nausea vomiting Appetite normal Physical exam: No acute distress Heart and lungs clear Abdomen is benign Right lower extremity with fading and much smaller areas of pinkness Nonfocal neurologic examination Assessment and plan: Refractory cellulitis which has been actually responding well to the ceftriaxone clindamycin and oral rifampin at the time of discharge and I believe the plan was to discharge to shelter 05/06 on just IV ceftriaxone and rifampin. * Continue Rocephin and rifampin for now * Continue vancomycin and clindamycin for now continue vancomycin for another 24 hours Streptococcus pyogenes bacteremia * DNA detection, (not blood culture) at [facility] was of coag- negative staph. Streptococcus pyogenes DNA screening was part of the panel and this was negative * Repeat blood cultures from yesterday we will be monitored * Plan is to deescalate off of vancomycin clindamycin and discontinue with ceftriaxone rifampin and continue to monitor clinical progress * Procalcitonin is de-escalated from prior readings this admission suggesting that the infection is responding has been responding Fatigue and cognitive fluctuations * This was interpreted as encephalopathy due to toxemia by the daughter which is quite reasonable given recent medical history * Favor other causes, however such as hypoglycemia due to metformin and in a demented patient would avoid using this in the future as this may confound the clinical picture Type 2 diabetes * Stable * Sliding scale insulin only at this time Past medical history: * Chronic lymphedema * Dermatophytosis * Diabetic foot ulcer associated with diabetes mellitus due to underlying condition * Early onset Alzheimer's dementia * Sleep apnea * Hyperlipidemia * HTN (hypertension) * Hypothyroidism DVT prophylaxis: * Enoxaparin Code status: * Full code Disposition: * Remained inpatient continue the IV antibiotics looking for acute rehab 35 minutes were involved management of this patient including discussion with patient's family physical examination review of charting reviewing of objective laboratory and imaging findings extensive research records and review current clinical evaluation [id number] physical examination and discussion with daughter Exam Vital Signs (past 8 hours): - 05/11/25 08:00 Temperature 98.4 F Pulse Rate 74 Respiratory Rate 19 Blood Pressure 145/67 H Pulse Oximetry 96 Oxygen Flow Rate 1.5 Fraction of Inspired Oxygen 28 SaO2/FiO2 Ratio 332 Oxygen Delivery Method Nasal Cannula Oxygen Flow Rate 1.5 Objective Labs 05/11/25 06:35 05/11/25 06:35 Labs: Laboratory Results - last 24 hr 05/10/25 05/10/25 05/11/25 16:55 20:33 05:13 WBC RBC Hgb Hct MCV MCH MCHC RDW Plt Count Neut % (Auto) Lymph % (Auto) Dundy % (Auto) Eos % (Auto) Baso % (Auto) Neut # (Auto) Lymph # (Auto) Dundy # (Auto) Eos # (Auto) Baso # (Auto) Sodium Potassium Chloride Carbon Dioxide BUN Creatinine Estimated GFR BUN/Creatinine Ratio Glucose POC Whole Bld Glucose 140 H 171 H 141 H Calcium 05/11/25 05/11/25 06:35 11:49 WBC 4.3 L RBC 3.58 L Hgb 10.3 L Hct 31.6 L MCV 88.2 MCH 28.8 MCHC 32.6 RDW 14.8 Plt Count 341 Neut % (Auto) 45.5 L Lymph % (Auto) 37.3 Dundy % (Auto) 10.4 Eos % (Auto) 4.5 H Baso % (Auto) 2.3 H Neut # (Auto) 1900 Lymph # (Auto) 1600 Dundy # (Auto) 400 Eos # (Auto) 200 Baso # (Auto) 100 Sodium 135 L Potassium 3.3 L Chloride 102 Carbon Dioxide 27 BUN 4 L Creatinine 0.54 Estimated GFR > 60 BUN/Creatinine Ratio 7.4 Glucose 134 H POC Whole Bld Glucose 140 H Calcium 8.8 PFSH Medical History Dermatophytosis Diabetic foot ulcer associated with diabetes mellitus due to underlying condition Dysuria Conjunctivitis Tinea Early onset Alzheimer's dementia Incontinence Sleep apnea Hyperlipidemia HTN (hypertension) Hypothyroidism Diabetes Social History household members: none Smoking Status: Former smoker Tobacco: How many years used: 25 quit status: quit date established alcohol intake: never substance use type: does not use Assessment & Plan Time-Based Coding :: [TOTAL MINUTES] spent with patient and on the chart (including review of chart, obtaining history, exam, reviewing outside data, placing orders, documenting exam and treatment plan, and counseling patient) on [DATE].
[2025-05-11] MEDS: LOSARTAN 50 MG TABLET PO (17:13)
[2025-05-11 20:00] VITALS: BP 152/73; PULSE 54; RESP 21; TEMP 36.7; O2SAT 99
[2025-05-11] MEDS: PRAVASTATIN 20 MG TABLET PO (20:23)
[2025-05-11] MEDS: VANCOMYCIN TROUGH 1 REQUEST MISC (20:24)
--- NOTE | 2025-05-11 22:51 | PC.NURSE ---
Patient is refusing to be repositioned. Patient is currently on the recliner chair with belongings close by and call light in [facility]. Pt. stated to Tech I don't want to move, leave me alone. RN notified. Will try to reattempt with the help of RN.
[2025-05-12] MEDS: CLINDAMYCIN 600 MG/50 ML PIGGYBACK 50 MG IV ×3 (04:11→19:28)
[2025-05-12] MEDS: cefTRIAXone 2,000 MG in SODIUM CHLORIDE 0.9% 100 ML 200 MG IV (05:54)
[2025-05-12] MEDS: VANCOMYCIN 1,500 MG/300 ML PIGGYBACK 200 MG IV ×2 (07:03→20:01)
[2025-05-12 07:39] LABS: Blood Urea Nitrogen 6 mg/dL (7-17); Calcium 8.8 mg/dL (8.4-10.2); Carbon Dioxide 24 mmol/L (22-32); Chloride 104 mmol/L (98-107); Estimated Glomerular Filt Rate > 60 mL/min (>60); Glucose 136 mg/dL (70-99); HEMOLYSIS < 15 (0-50); Potassium 4.0 mmol/L (3.4-5.1); Sodium 136 mmol/L (137-145)
[2025-05-12 08:00] VITALS: BP 145/60; PULSE 69; RESP 20; TEMP 36.6; O2SAT 96
--- NOTE | 2025-05-12 08:47 | PT-OP ANOTE ---
Tried to see pt for physical therapy, but pt was unavailable, eating breakfast. Pt advised to seek mobility with nursing staff later when they are present to assist.
[2025-05-12] MEDS: HEPARIN 5,000 UNIT/ML VIAL 5000 UNIT SUBCUT ×2 (10:12→20:45)
[2025-05-12] MEDS: SERTRALINE 50 MG TABLET 75 MG PO (10:14)
[2025-05-12] MEDS: METOPROLOL IR 50 MG TABLET PO ×2 (10:15→20:45)
[2025-05-12] MEDS: LOSARTAN 50 MG TABLET PO ×2 (10:15→20:45)
--- NOTE | 2025-05-12 10:26 | PM.PN.1 ---
Subjective Subjective Date Patient Seen: 05/12/25 Interval history: Chief complaint: Cellulitis previous bacteremia with Streptococcus pyogenes History of present illness: 05/09: 74-year-old female with past medical history of morbid obesity, hyperlipidemia, hypertension, hypothyroidism, early onset of Alzheimer's dementia, sleep apnea and recent bacteremia presents with fatigue and positive blood culture. Of note the patient's daughter at the bedside and reports that the patient was recently admitted to the hospital and discharged on May 06, 2025 due to bacteremia. The patient supposedly was discharged on IV Rocephin and clindamycin and oral rifampin---[I believe clindamycin was actually not continued]. The patient does have a PICC line for ongoing IV antibiotic that was given and Center. The patient in addition has right lower extremity cellulitis as well. On May 08, 2025 the patient again presented to [place] emergency room due to the patient having more fatigue and that her cellulitis seems to worsen [by the daughter's recollection] in the medial aspect of her right thigh. Bed the patient had blood culture again and the patient was sent back to her care facility when they felt that the patient was stable. However today the patient was called and states that the blood culture on May 08 came back positive for gram-positive cocci. The patient's daughter decided to bring her back to our emergency room rather than [place] for further management. Otherwise there is no report of any recent fever, chills, nausea, vomiting, diarrhea, chest pain or coughing. [Blood culture at [facility] was in fact 1 detection of coag-negative staph] In the emergency room, the patient remains hemodynamically stable. Labs were relatively benign. Per our ER physician the patient's lower extremity cellulitis seems to resolve in some area but worsens in others. Another set of blood cultures were drawn. Empiric vancomycin was given due to the fact that the patient recent repeat blood culture grew out gram-positive cocci at [place] emergency room. Patient was admitted by the precision lens polisher on ceftriaxone oral rifampin started clindamycin and vancomycin repeat blood cultures were drawn Important to note that procalcitonin was reduced (04/26 -2.39, 04/27 -1.51, 05/09 -0.082) Hospital course: 05/10: Overnight there were no events hard copy of the records were obtained and was negative for DNA detection of coagulation staff all other DNA were negative including Streptococcus pyogenes Patient in no acute distress alert and cogent at the time of my examination Heart and lungs sounds are distant as per usual the skin erythema is now just very faintly pink and in much smaller areas than my last evaluation 05/11: No events overnight no acute problem reported tolerating medication 05/12: No event overnight feeling stronger Review of systems: Just feeling tired today No sweats chills rigors No chest pain No nausea vomiting Appetite normal Physical exam: No acute distress Heart and lungs clear Abdomen is benign Right lower extremity with progressive fading and much smaller areas of pinkness Nonfocal neurologic examination Assessment and plan: Refractory cellulitis which has been actually responding well to the ceftriaxone clindamycin and oral rifampin at the time of discharge and I believe the plan was to discharge to [facility] 05/06 on just IV ceftriaxone and rifampin, unfortunately the clinical presentation and photo documentation the cellulitis rapidly rebound escalated. This has responded quite well to adding back clindamycin Continue Rocephin and rifampin for now Continue vancomycin and clindamycin for now continue vancomycin for another 24 hours Has PICC line in We will arrange for IV antibiotics at [facility] facility coordinate through Infectious Disease plans for ceftriaxone and rifampin and clindamycin for another 7-12 days Streptococcus pyogenes bacteremia DNA detection, (not blood culture) at [facility] was of coag-negative staph (likely collection contaminant). Streptococcus pyogenes DNA screening was part of the panel and this was negative Repeat blood cultures from 48 hours ago were negative Plan is to deescalate off vancomycin and continue IV clindamycin ceftriaxone rifampin and continue to monitor clinical progress Procalcitonin is de-escalated from prior readings this admission suggesting that the infection is responding has been responding Fatigue and cognitive fluctuations This was interpreted as encephalopathy due to toxemia by the daughter which is quite reasonable given recent medical history Favor other causes, however such as hypoglycemia due to metformin and in a demented patient would avoid using this in the future as this may confound the clinical picture Would not resume metformin at discharge (multiple contraindications) Type 2 diabetes Stable Sliding scale insulin only at this time Would not resume metformin at discharge (multiple contraindications) Past medical history: Morbid obesity Chronic lymphedema Dermatophytosis Diabetic foot ulcer associated with diabetes mellitus due to underlying condition Early onset Alzheimer's dementia Sleep apnea Hyperlipidemia HTN (hypertension) Hypothyroidism DVT prophylaxis: Enoxaparin Code status: Do not resuscitate Disposition: Remained inpatient continue the IV antibiotics looking for acute rehab Continue IV Rocephin clindamycin and p.o. rifampin at [facility] for 7-12 days Coordinate with Infectious Disease 35 minutes were involved management of this patient including discussion with patient's family physical examination review of charting reviewing of objective laboratory and imaging findings extensive research records and review current clinical evaluation [id number] physical examination and discussion with daughter Exam Vital Signs (past 8 hours): - 05/12/25 08:00 Temperature 97.9 F Pulse Rate 69 Respiratory Rate 20 Blood Pressure 145/60 H Pulse Oximetry 96 Oxygen Flow Rate 1.5 Fraction of Inspired Oxygen 28 SaO2/FiO2 Ratio 332 Oxygen Delivery Method Room Air,Nasal Cannula Oxygen Flow Rate 1.5 Objective Labs 05/11/25 06:35 05/12/25 07:14 Labs: Laboratory Results - last 24 hr 05/11/25 05/11/25 05/11/25 11:49 16:06 19:05 Sodium Potassium Chloride Carbon Dioxide BUN Creatinine Estimated GFR BUN/Creatinine Ratio Glucose POC Whole Bld Glucose 140 H 150 H Calcium Vancomycin Trough 18.3 05/11/25 05/12/25 05/12/25 21:29 07:14 07:42 Sodium 136 L Potassium 4.0 Chloride 104 Carbon Dioxide 24 BUN 6 L Creatinine 0.53 Estimated GFR > 60 BUN/Creatinine Ratio 11.3 Glucose 136 H POC Whole Bld Glucose 149 H 130 H Calcium 8.8 Vancomycin Trough PFSH Medical History Dermatophytosis Diabetic foot ulcer associated with diabetes mellitus due to underlying condition Dysuria Conjunctivitis Tinea Early onset Alzheimer's dementia Incontinence Sleep apnea Hyperlipidemia HTN (hypertension) Hypothyroidism Diabetes Social History household members: none Smoking Status: Former smoker Tobacco: How many years used: 25 quit status: quit date established alcohol intake: never substance use type: does not use Assessment & Plan Time-Based Coding :: [TOTAL MINUTES] spent with patient and on the chart (including review of chart, obtaining history, exam, reviewing outside data, placing orders, documenting exam and treatment plan, and counseling patient) on [DATE].
[2025-05-12] MEDS: MEMANTINE HCL 5 MG TABLET PO ×2 (10:34→20:45)
--- NOTE | 2025-05-12 13:05 | P.PN_ITS ---
Subjective Subjective Date Patient Seen: 05/12/25 Interval history: Chief complaint: Cellulitis previous bacteremia with Streptococcus pyogenes History of present illness: 05/09: 74-year-old female with past medical history of morbid obesity, hyperlipidemia, hypertension, hypothyroidism, early onset of Alzheimer's dementia, sleep apnea and recent bacteremia presents with fatigue and positive blood culture. Of note the patient's daughter at the bedside and reports that the patient was recently admitted to the hospital and discharged on May 06, 2025 due to bacteremia. The patient supposedly was discharged on IV Rocephin and clindamycin and oral rifampin---[I believe clindamycin was actually not continued]. The patient does have a PICC line for ongoing IV antibiotic that was given and [facility]. The patient in addition has right lower extremity cellulitis as well. On May 08, 2025 the patient again presented to [facility] emergency room due to the patient having more fatigue and that her cellulitis seems to worsen [by the daughter's recollection] in the medial aspect of her right thigh. Bed the patient had blood culture again and the patient was sent back to her care facility when they felt that the patient was stable. However today the patient was called and states that the blood culture on May 08 came back positive for gram-positive cocci. The patient's daughter decided to bring her back to our emergency room rather than [facility] for further management. Otherwise there is no report of any recent fever, chills, nausea, vomiting, diarrhea, chest pain or coughing. [Blood culture at [facility] was in fact 1 detection of coag- negative staph] In the emergency room, the patient remains hemodynamically stable. Labs were relatively benign. Per our ER physician the patient's lower extremity cellulitis seems to resolve in some area but worsens in others. Another set of blood cultures were drawn. Empiric vancomycin was given due to the fact that the patient recent repeat blood culture grew out gram-positive cocci at [facility] emergency room. Patient was admitted by the spindle carver on ceftriaxone oral rifampin started clindamycin and vancomycin repeat blood cultures were drawn Important to note that procalcitonin was reduced (04/26 -2.39, 04/27 -1.51, 05/09 -0.082) Hospital course: 05/10: Overnight there were no events hard copy of the records were obtained and was negative for DNA detection of coagulation staff all other DNA were negative including Streptococcus pyogenes Patient in no acute distress alert and cogent at the time of my examination Heart and lungs sounds are distant as per usual the skin erythema is now just very faintly pink and in much smaller areas than my last evaluation 05/11: No events overnight no acute problem reported tolerating medication 05/12: No event overnight feeling stronger Review of systems: Just feeling tired today No sweats chills rigors No chest pain No nausea vomiting Appetite normal Physical exam: No acute distress Heart and lungs clear Abdomen is benign Right lower extremity with progressive fading and much smaller areas of pinkness Nonfocal neurologic examination Assessment and plan: Refractory cellulitis which has been actually responding well to the ceftriaxone clindamycin and oral rifampin at the time of discharge and I believe the plan was to discharge to assisted 05/06 on just IV ceftriaxone and rifampin, unfortunately the clinical presentation and photo documentation the cellulitis rapidly rebound escalated. This has responded quite well to adding back clindamycin * Continue Rocephin and rifampin for now * Continue vancomycin and clindamycin for now continue vancomycin for another 24 hours * Has PICC line in * We will arrange for IV antibiotics at assisted facility coordinate through Infectious Disease plans for ceftriaxone and rifampin and clindamycin for another 7-12 days Streptococcus pyogenes bacteremia * DNA detection, (not blood culture) at [facility] was of coag- negative staph (likely collection contaminant). * Streptococcus pyogenes DNA screening was part of the panel and this was negative * Repeat blood cultures from 48 hours ago were negative * Plan is to deescalate off vancomycin and continue IV clindamycin ceftriaxone rifampin and continue to monitor clinical progress * Procalcitonin is de-escalated from prior readings this admission suggesting that the infection is responding has been responding Fatigue and cognitive fluctuations * This was interpreted as encephalopathy due to toxemia by the daughter which is quite reasonable given recent medical history * Favor other causes, however such as hypoglycemia due to metformin and in a demented patient would avoid using this in the future as this may confound the clinical picture * Would not resume metformin at discharge (multiple contraindications) Type 2 diabetes * Stable * Sliding scale insulin only at this time * Would not resume metformin at discharge (multiple contraindications) Past medical history: * Morbid obesity * Chronic lymphedema * Dermatophytosis * Diabetic foot ulcer associated with diabetes mellitus due to underlying condition * Early onset Alzheimer's dementia * Sleep apnea * Hyperlipidemia * HTN (hypertension) * Hypothyroidism DVT prophylaxis: * Enoxaparin Code status: * Do not resuscitate Disposition: * Remained inpatient continue the IV antibiotics looking for acute rehab, Wednesday 05/16: * Continue IV Rocephin clindamycin and p.o. rifampin at assisted for 7-12 days * Coordinate with Infectious Disease 35 minutes were involved management of this patient including discussion with patient's family physical examination review of charting reviewing of objective laboratory and imaging findings extensive research records and review current clinical evaluation [id number] physical examination and discussion with daughter Exam Vital Signs (past 8 hours): - 05/12/25 08:00 Temperature 97.9 F Pulse Rate 69 Respiratory Rate 20 Blood Pressure 145/60 H Pulse Oximetry 96 Oxygen Flow Rate 1.5 Fraction of Inspired Oxygen 28 SaO2/FiO2 Ratio 332 Oxygen Delivery Method Room Air,Nasal Cannula Oxygen Flow Rate 1.5 Objective Labs 05/11/25 06:35 05/12/25 07:14 Labs: Laboratory Results - last 24 hr 05/11/25 05/11/25 05/11/25 16:06 19:05 21:29 Sodium Potassium Chloride Carbon Dioxide BUN Creatinine Estimated GFR BUN/Creatinine Ratio Glucose POC Whole Bld Glucose 150 H 149 H Calcium Vancomycin Trough 18.3 05/12/25 05/12/25 05/12/25 07:14 07:42 10:55 Sodium 136 L Potassium 4.0 Chloride 104 Carbon Dioxide 24 BUN 6 L Creatinine 0.53 Estimated GFR > 60 BUN/Creatinine Ratio 11.3 Glucose 136 H POC Whole Bld Glucose 130 H 161 H Calcium 8.8 Vancomycin Trough PFSH Medical History Dermatophytosis Diabetic foot ulcer associated with diabetes mellitus due to underlying condition Dysuria Conjunctivitis Tinea Early onset Alzheimer's dementia Incontinence Sleep apnea Hyperlipidemia HTN (hypertension) Hypothyroidism Diabetes Social History household members: none Smoking Status: Former smoker Tobacco: How many years used: 25 quit status: quit date established alcohol intake: never substance use type: does not use Assessment & Plan Time-Based Coding :: [TOTAL MINUTES] spent with patient and on the chart (including review of chart, obtaining history, exam, reviewing outside data, placing orders, documenting exam and treatment plan, and counseling patient) on [DATE].
--- NOTE | 2025-05-12 18:04 | PC.NURSE ---
Pt denies discomfort during day. Sitting in chair for meals, YURY PICC intact/patent. Bilateral LE edematous, red and swollen, Right worse than left Call light w/in reach, Pt calls appropriately for needs Continue w/plan of care.
[2025-05-12 20:45] VITALS: BP 122/54; PULSE 60
[2025-05-12] MEDS: PRAVASTATIN 20 MG TABLET PO (20:45)
[2025-05-12] MEDS: NYSTATIN POWDER 15GM 1 APPLIC TOP (20:50)
[2025-05-12 20:55] VITALS: BP 122/54; PULSE 60; RESP 18; TEMP 36.2; O2SAT 96
--- NOTE | 2025-05-13 04:04 | PC.NURSE ---
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 Mary Alice noticed patient was picking at her wounds on her leg and pulling off scab during the video conversation. Mary Alice concerned about patient causing more damage /wounds to patient's infected leg wanted to notify the staff. Mary Alice also is requesting to have M.D. place a order for a new neurological MOCA assessment of the patient. Mary Alice is concerned that the patients awareness of her situation and cognitive abilities are declining. RN assessed patient and found patient used humor and banter to avoid answering Orientation questions. RN pushed for clarity and patient was not able to affirm any information except for self, , and month, patient thought she was at a SNF and the year was 2020. Later in shift (2300 approx) patient woke up and was completely disoriented; staff was able to re-orientate to place and situation. Patient awoke again 90 minutes later (0030 approx) and patient was disorientated and had a mild panic attack, staff was able to re-orientate again and patient was able to calm down stating that she does this all the time; patient did not want any medication or to be seen by any providers; stating i do this all the time when i sleep really well. 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
[2025-05-13] MEDS: CLINDAMYCIN 600 MG/50 ML PIGGYBACK 50 MG IV ×2 (04:33→11:47)
[2025-05-13] MEDS: cefTRIAXone 2,000 MG in SODIUM CHLORIDE 0.9% 100 ML 200 MG IV (05:46)
[2025-05-13] MEDS: VANCOMYCIN 1,500 MG/300 ML PIGGYBACK 200 MG IV (06:42)
[2025-05-13 08:00] VITALS: BP 122/61; PULSE 68; RESP 17; TEMP 37.1; O2SAT 96
[2025-05-13] MEDS: HEPARIN 5,000 UNIT/ML VIAL 5000 UNIT SUBCUT ×2 (10:00→21:48)
[2025-05-13] MEDS: MEMANTINE HCL 5 MG TABLET PO ×2 (10:01→21:48)
[2025-05-13] MEDS: METOPROLOL IR 50 MG TABLET PO ×2 (10:01→21:48)
[2025-05-13] MEDS: NYSTATIN POWDER 15GM 1 APPLIC TOP ×2 (10:01→21:50)
[2025-05-13] MEDS: LOSARTAN 50 MG TABLET PO ×2 (10:01→21:48)
[2025-05-13] MEDS: SERTRALINE 50 MG TABLET 75 MG PO (10:02)
[2025-05-13 10:49] VITALS: O2SAT 98
--- NOTE | 2025-05-13 11:39 | CM.DPC ---
DCP SNF Cont: Per MD, pt has PICC already and finalizing her IV abx needs for discharge with plan of SNF. ALFREDO called [facility] and confirmed they can accept pt and submitted for her [employer] auth yesterday 05/12 and still in process. [facility] states that they cannot accept pt over the weekend due to staffing needs but could accept on 05/16 if auth obtained. [facility] requesting updated PT/OT notes to be sent over the weekend so she can continue providing them to insurance for SNF auth. No current updated PT/OT notes yet today to send. PASRR completed and signed in anticipation of SNF. SANDY Cardenas
--- NOTE | 2025-05-13 12:57 | OT.IP.TRT ---
Current Diagnoses Bacteremia (05/10/25) Occupational Therapy Treatment Note M2 OT-IP Current Condition Start: 05/11/25 12:36 Freq: Status: Active Protocol: Document 05/11/25 11:24 [facility] (Rec: 05/11/25 13:04 [facility] Desktop) Occupational Therapy Current Condition Current Condition Evaluation Date 05/11/25 Treatment Diagnosis LE cellulilis Diagnosis Onset Date 05/09/25 M3 OT- IP Subjective and Pain Start: 05/11/25 12:36 Freq: Status: Active Protocol: Document 05/13/25 12:00 [facility] (Rec: 05/13/25 12:57 [facility] Desktop) OT- Subjective Occupational Therapy Visit Type Type Treatment Note Visit Start Time 11:45 Visit Stop Time 11:55 Occupational Therapy Visit Comments Patient Comments Pt just waking up and agreed to do cognitive testing. M4 OT- IP ADL's Start: 05/11/25 12:36 Freq: Status: Active Protocol: Document 05/11/25 11:24 [facility] (Rec: 05/11/25 13:04 [facility] Desktop) OT [id number] Comments OT Self-Feeding Not at meal time. Comments OT ADL-Grooming Comments OT Grooming Comments Pt needing assist due to limited AROM with her BUE. OT ADL-Oral Care Comments Oral Care Comments Pt adamantly refusing to do . OT ADL-Dressing General Eval Lower Body Dressing Maximum Assistance Ability OT ADL-Toileting General Evaluation Toileting Ability Maximum Assistance Comments OT Toileting EPIFANIO with FWW to transfer and MAXA for all hygiene Comments needs. OT ADL-Bathing Comments OT Bathing Comments Pt will benefit from assist. M5 OT- IP IADL's Start: 05/11/25 12:36 Freq: Status: Active Protocol: Document 05/11/25 11:24 [facility] (Rec: 05/11/25 13:04 [facility] Desktop) OT-Instrumental Activities of Daily Living Home Safety Awareness Awareness of Need Decreased Awareness for Assistance at Home Home Safety Comments Pt does not initiate request for assist and has to be asked during OT eval. Medication Management Medication Caregiver Administers Management Money Management Money Management Caregiver Provides Assistance Meal Preparation Meal Preparation Caregiver Provides Assist Business Development Executive Business Development Executive Caregiver Provides Assist Driving Driving Caregiver Provides Assist M6 OT- IP Functional Cognition Start: 05/11/25 12:36 Freq: Status: Active Protocol: Document 05/13/25 12:00 [facility] (Rec: 05/13/25 12:57 [facility] Desktop) Cognitive Factors Limiting Selfcare Function Cognitive Ability Level of Alertness Alert Patient Orientation Name,Place,Situation Attention Span Capable of Focused Attention,Capable of Sustained Ability Attention Ability to Follow Able to Follow One Step Commands Commands Memory Description Short Term Impaired Cognitive Comments Cognitive Assessment Pt scored 19/30 on the MMSE today and scored 23/30 on Comments the 05/03/25 M7 OT- IP Mobility and Balance Start: 05/11/25 12:36 Freq: Status: Active Protocol: Document 05/11/25 11:24 [facility] (Rec: 05/11/25 13:04 [facility] Desktop) OT-Transfer Assessment Sit to and From Stand Sit to and from Minimal Assistance,Moderate Assistance Stand Transfers Transfer Ability Minimal Assistance Technique Transfer Destination Bedside Commode,Chair Transfer Technique Stand Step Pivot Devices Transfer Assistive Gait Belt,Front Wheeled Walker Devices Comments Mobility Comments Pt needing from EPIFANIO to MODA to stand pending on the height of the surface. Once on her feet just needing CGA to EPIFANIO with the fww for the transfer. OT- Balance Assessment Sitting Balance and Reactions Static Sitting Good Balance Ability Dynamic Sitting Good Balance Ability Standing Balance and Reactions Static Standing Good Balance Ability Dynamic Standing Fair Balance Ability M8 OT- IP Objective Assessments Start: 05/11/25 12:36 Freq: Status: Active Protocol: Document 05/11/25 11:24 [facility] (Rec: 05/11/25 13:04 [facility] Desktop) OT Gross Range of Motion Upper Extremity Range of Motion Assessment Bilaterally Impaired OT Strength Upper Extremity Strength Assessment Bilaterally Impaired Shoulder 3- Elbow 4- Forearm 4- Wrist 4- Hand 4- M9 OT- IP Assessment and Plan Start: 05/11/25 12:36 Freq: Status: Active Protocol: Document 05/13/25 12:00 [facility] (Rec: 05/13/25 12:57 [facility] Desktop) OT Summary Assessment and Plan Potential Rehabilitation Good Potential Analytic Complexity Moderate at Evaluation Summary OT Impairments Pain,Range of Motion,Strength,Balance,Functional Cognition,Functional Mobility,Self-Feeding,Grooming, Toilet Transfers,Shower Transfers,Activity Tolerance Progress Towards Progressing Toward Goals,Slow Progress due to Cognition Goals Assessment Summary Pt to go to skilled rehab when medically stable. Pt having more trouble orientation to date, season, month, year and day of week. Pt also states I do not care as well. Pt main deficit in decreased STM for her cognitive needs. Pt to go to skilled rehab when medically stable. Goals Grooming Goal Standby Assistance Toilet Transfer Goal Standby Assistance Shower Transfer Goal Standby Assistance Days to Meet Goals 14 Frequency of Treatment Other frequency 5x/week Treatment Plan OT Treatment Plan ADL Training,Functional Cognition Training,Functional Mobility,Patient/Family Education,Discharge Planning Discharge Recommendations OT Discharge SNF Rehab Recommendations Transportation Needs Wheelchair/Cabulance,Stretcher/Ambulance at Discharge
--- NOTE | 2025-05-13 14:10 | PT.IPTN ---
Current Diagnoses Bacteremia (05/10/25) Physical Therapy Treatment Note M2 PT-IP Current Condition Start: 05/10/25 12:35 Freq: NEEDED Status: Active Protocol: Document 05/10/25 10:00 [facility] (Rec: 05/10/25 13:00 AB [id number]) Physical Therapy Current Condition Current Condition Evaluation Date 05/10/25 Treatment Diagnosis LE cellulitis; difficulty in walking Onset Date 05/10/25 M3 PT-IP Subjective Start: 05/10/25 12:35 Freq: NEEDED Status: Active Protocol: Document 05/13/25 14:10 [facility] (Rec: 05/13/25 14:48 AB [id number]) Subjective Physical Therapy Visit Type Type Treatment Note Visit Start Time 14:10 Visit Stop Time 14:30 Number of FINANCIAL OPERATIONS CONSULTANT Visits 0 M4 PT-IP Mobility and Gait Start: 05/10/25 12:35 Freq: NEEDED Status: Active Protocol: Document 05/13/25 14:10 [facility] (Rec: 05/13/25 14:48 AB [id number]) PT-Bed Mobility Assessment Sit to Supine Sit to Supine Maximum Assistance,2 Person Assistance,Head of Bed Elevated,Bedrails Scooting Scooting Up and Down Maximum Assistance in Bed PT-Transfer Assessment Sit to and From Stand Sit to and from Contact Guard Assistance,1 Person Assistance,Use of Stand Upper Extremities Equipment Transfer Assistive Gait Belt,Front Wheeled Walker Device Orthotic/Prosthetic No Devices or Brace: Transfers Transfer Destination Bed,Bedside Commode Transfer Technique ambulated Transfer Ability Level of Assist Contact Guard Assistance,1 Person Assistance,Use of Upper Extremities Comments Mobility Comments pt sitting on the chair and NAC in room. pt wanting to go back to bed. Pt initially refusing PT but encouraged to do PT first before going back to bed. pt wants to use the commode. agreed to get up and walk to the commode. sit to stand CGA and ambulated to the bedside commode ~ 8 ft using FWW CGA. sit to stand from the commode CGA and NAC assisted pt with hygiene care. pt ambulated to the bed using FWW CGA. sit to supine max A x 2 and max cues. positioned pt in bed max A x 2 and cues with use of overhead trapeze and bed rail. call light and table placed next to pt. left pt with NAC. Gait Assessment Gait Gait Assistance Contact Guard Assist Required: Distance (Feet) 8 Able to Maintain Yes Weight Bearing Status During Gait Assistive Devices Assistive Device Gait Belt,Front Wheeled Walker Orthotic/Prosthetic No Devices or Brace: Gait Deviations General Gait Pattern Decreased Stride Length,Decreased Feet Clearance,Step- to Gait Factors Limiting Gait Function Factors Limiting Decreased Activity Tolerance,Decreased Strength,Pain, Gait Function Poor Balance,Poor Safety Awareness,Respiratory Distress M5 PT-IP Objective Assessments Start: 05/10/25 12:35 Freq: NEEDED Status: Active Protocol: Document 05/10/25 10:00 [facility] (Rec: 05/10/25 13:00 AB [id number]) Orientation Orientation/Cognition Level of Alertness Alert Orientation Name Language Function Hard of Hearing Ability Safety Awareness Decreased Safety Awareness Memory Description Short Term Impaired,Nursery Helper Impaired Strength Lower Extremity Strength Assessment Bilaterally Impaired Hip 3-/5 Knee 3+/5 Muscle Tone Muscle Tone WNL Yes M6 PT-IP Treatment Start: 05/10/25 12:35 Freq: NEEDED Status: Active Protocol: Document 05/13/25 14:10 [facility] (Rec: 05/13/25 14:48 AB [id number]) Physical Therapy Treatment Education Education Provided Safety M7 PT-IP Assessment and Plan Start: 05/10/25 12:35 Freq: NEEDED Status: Active Protocol: Document 05/13/25 14:10 [facility] (Rec: 05/13/25 14:48 AB [id number]) PT Summary Assessment and Plan Potential Rehabilitation Good Potential Summary Impairments Pain,ROM,Strength,Balance,Coordination,Sensation,Tone, Cognition,Bed Mobility,Transfers,Gait,Activity Tolerance Progress Towards Slow Progress due to Activity Tolerance,Slow Progress - Goals Other Assessment Summary pt is improving with mobility and able to transfer and ambulation using fWW CGA but still requires max A x 2 for bed mobility. pt will benefit from SNF rehab to improve overall strength and mobility independence. Goals Bed Mobility Goal Minimal Assistance Transfer Goal Minimal Assistance,Front Wheeled Walker,Four Wheeled Walker Gait Goal Minimal Assistance,Front Wheel Walker,Four Wheel Walker Gait Distance 25 Other Goals improve bed mobility, transfers, ambulation using 4WW ~ 50 ft CGA Days to Meet Goals 10 Frequency of Treatment Frequency Of Once a Day Treatment Treatment Plan Physical Therapy Bed Mobility Training,Transfer Training,Gait Training, Treatment Plan Therapeutic Exercise,Balance Retraining,Discharge Planning,Hot or Cold Pack,Neuromuscular Re-ed, Coordination Retraining,Manual Therapy Recommendations To Nursing Amount of Assist 1 Person Assist Needed Discharge Recommendations PT Discharge SNF Rehab Recommendations Transportation Needs Wheelchair/Cabulance at Discharge - PT assist 1
--- NOTE | 2025-05-13 14:33 | CM.DPNOTE ---
Updated Courtney at [facility] that patient is slated to discharge to [facility]. JW
--- NOTE | 2025-05-13 15:00 | P.PN_ITS ---
Subjective Subjective Date Patient Seen: 05/13/25 Time Patient Seen: 08:00 Interval history: Chief complaint: Cellulitis previous bacteremia with Streptococcus pyogenes History of present illness: 05/09: 74-year-old female with past medical history of morbid obesity, hyperlipidemia, hypertension, hypothyroidism, early onset of Alzheimer's dementia, sleep apnea and recent bacteremia presents with fatigue and positive blood culture. Of note the patient's daughter at the bedside and reports that the patient was recently admitted to the hospital and discharged on May 06, 2025 due to bacteremia. The patient supposedly was discharged on IV Rocephin and clindamycin and oral rifampin---[I believe clindamycin was actually not continued]. The patient does have a PICC line for ongoing IV antibiotic that was given and Center. The patient in addition has right lower extremity cellulitis as well. On May 08, 2025 the patient again presented to [place] emergency room due to the patient having more fatigue and that her cellulitis seems to worsen [by the daughter's recollection] in the medial aspect of her right thigh. Bed the patient had blood culture again and the patient was sent back to her care facility when they felt that the patient was stable. However today the patient was called and states that the blood culture on May 08 came back positive for gram-positive cocci. The patient's daughter decided to bring her back to our emergency room rather than [place] for further management. Otherwise there is no report of any recent fever, chills, nausea, vomiting, diarrhea, chest pain or coughing. Blood culture at [facility] was in fact 1 detection of coag-negative staph In the emergency room, the patient remains hemodynamically stable. Labs were relatively benign. Per our ER physician the patient's lower extremity cellulitis seems to resolve in some area but worsens in others. Another set of blood cultures were drawn. Empiric vancomycin was given due to the fact that the patient recent repeat blood culture grew out gram-positive cocci at [place] emergency room. Patient was admitted by the operator ground based air defence on ceftriaxone oral rifampin started clindamycin and vancomycin repeat blood cultures were drawn Important to note that procalcitonin was reduced (04/26 -2.39, 04/27 -1.51, 05/09 -0.082) Hospital course: 05/10: Overnight there were no events hard copy of the records were obtained and was negative for DNA detection of coagulation staff all other DNA were negative including Streptococcus pyogenes Patient in no acute distress alert and cogent at the time of my examination Heart and lungs sounds are distant as per usual the skin erythema is now just very faintly pink and in much smaller areas than my last evaluation 05/11: No events overnight no acute problem reported tolerating medication 05/12: No event overnight feeling stronger 05/13: No new events. She denies leg pain. Case reviewed with Dr. Guzman of Infectious Disease by phone. Exam Vital Signs (past 8 hours): - 05/13/25 08:00 05/13/25 10:49 Temperature 98.7 F Pulse Rate 68 Respiratory Rate 17 Blood Pressure 122/61 Pulse Oximetry 96 98 Oxygen Flow Rate 1 2 Fraction of Inspired Oxygen 28 SaO2/FiO2 Ratio 332 Oxygen Delivery Method Room Air Oxygen Flow Rate 2 Narrative Exam Narrative: No acute distress Heart and lungs clear Abdomen is benign Right lower extremity with progressive fading and much smaller areas of pinkness Nonfocal neurologic examination Objective Labs 05/11/25 06:35 05/12/25 07:14 Labs: Laboratory Results - last 24 hr 05/12/25 05/12/25 05/13/25 16:42 21:10 07:57 POC Whole Bld Glucose 174 H 166 H 144 H 05/13/25 11:56 POC Whole Bld Glucose 154 H PFSH Medical History Dermatophytosis Diabetic foot ulcer associated with diabetes mellitus due to underlying condition Dysuria Conjunctivitis Tinea Early onset Alzheimer's dementia Incontinence Sleep apnea Hyperlipidemia HTN (hypertension) Hypothyroidism Diabetes Social History household members: none Smoking Status: Former smoker Tobacco: How many years used: 25 quit status: quit date established alcohol intake: never substance use type: does not use Assessment & Plan Assessment & Plan narrative: Refractory cellulitis which has been actually responding well to the ceftriaxone clindamycin and oral rifampin at the time of discharge and I believe the plan was to discharge to long-term 05/06 on just IV ceftriaxone and rifampin, unfortunately the clinical presentation and photo documentation the cellulitis rapidly rebound escalated. This has responded quite well to adding back clindamycin * Blood cultures negative since 04/23 * Stop Rocephin and rifampin 05/[address] Guzman * Start cefadroxil 1g BID prophylaxis on 05/14/2025 * Continue vancomycin and clindamycin for now continue vancomycin for another 24 hours * DC PICC line Streptococcus pyogenes bacteremia * DNA detection, (not blood culture) at [facility] was of coag- negative staph (likely collection contaminant). * Streptococcus pyogenes DNA screening was part of the panel and this was negative * Repeat blood cultures this admission negative to days, no growth on 04/23 cultures Fatigue and cognitive fluctuations, baseline Alzheimer dementia noted * This was interpreted as encephalopathy due to toxemia by the daughter which is quite reasonable given recent medical history * Favor other causes, however such as hypoglycemia due to metformin and in a demented patient would avoid using this in the future as this may confound the clinical picture * Would not resume metformin at discharge (multiple contraindications) Type 2 diabetes * Stable * Sliding scale insulin only at this time * Would not resume metformin at discharge (multiple contraindications) Past medical history: * Morbid obesity * Chronic lymphedema * Dermatophytosis * Diabetic foot ulcer associated with diabetes mellitus due to underlying condition * Early onset Alzheimer's dementia * Sleep apnea * Hyperlipidemia * HTN (hypertension) * Hypothyroidism DVT prophylaxis: * Enoxaparin Code status: * Do not resuscitate Disposition: * Ready for discharge to long-term at this point * Followup with Infectious Disease [facility] Rivet Catcher Document charge(s): No Charge Codes Subsequent inpatient/observation care: [id number]
--- NOTE | 2025-05-13 15:14 | PC.NURSE ---
Pt denies discomfort. Sat in chair for meals. Edema continues in lower legs. Redness improved from previous Call light w/in reach, pt calls appropriately for needs. Continue w/plan of care.
[2025-05-13 19:36] VITALS: BP 144/78; PULSE 84; RESP 16; TEMP 35.9; O2SAT 96
[2025-05-13 21:48] VITALS: BP 144/78
[2025-05-13] MEDS: PRAVASTATIN 20 MG TABLET PO (21:48)
[2025-05-13] MEDS: INSULIN LISPRO 100 UNIT/ML 3ML VIAL SUBCUT (21:49)
[2025-05-14 00:47] VITALS: O2SAT 96
--- NOTE | 2025-05-14 02:28 | EKG_ITS ---
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
--- NOTE | 2025-05-14 02:55 | PC.NURSE ---
Patient complaining of 6/10 chest pain to MACHINING ENGINEER VSS, 96% 1L NC, when I arrived she said the pain was mostly pressure, non radiating, and was both chest and back Patient had been complaining prior of discomfort in the bariatric bed and had been repositioned frequently Obtained an EKG, sent to provider, and gave norco for discomfort Provider reviewed, no further orders at this time.
[2025-05-14 08:00] VITALS: BP 157/54; PULSE 70; RESP 20; TEMP 35.9; O2SAT 94
[2025-05-14] MEDS: INSULIN LISPRO 100 UNIT/ML 3ML VIAL SUBCUT ×2 (08:32→12:04)
[2025-05-14] MEDS: LOSARTAN 50 MG TABLET PO ×2 (10:11→21:41)
[2025-05-14] MEDS: HEPARIN 5,000 UNIT/ML VIAL 5000 UNIT SUBCUT ×2 (10:11→21:41)
[2025-05-14] MEDS: METOPROLOL IR 50 MG TABLET PO ×2 (10:12→21:41)
[2025-05-14] MEDS: SERTRALINE 50 MG TABLET 75 MG PO (10:12)
[2025-05-14] MEDS: MEMANTINE HCL 5 MG TABLET PO ×2 (10:12→21:41)
[2025-05-14] MEDS: NYSTATIN POWDER 15GM 1 APPLIC TOP ×2 (10:13→21:45)
--- NOTE | 2025-05-14 11:57 | P.PN_ITS ---
Subjective Subjective Date Patient Seen: 05/14/25 Time Patient Seen: 08:47 Interval history: Chief complaint: Cellulitis previous bacteremia with Streptococcus pyogenes History of present illness: 05/09: 74-year-old female with past medical history of morbid obesity, hyperlipidemia, hypertension, hypothyroidism, early onset of Alzheimer's dementia, sleep apnea and recent bacteremia presents with fatigue and positive blood culture. Of note the patient's daughter at the bedside and reports that the patient was recently admitted to the hospital and discharged on May 06, 2025 due to bacteremia. The patient supposedly was discharged on IV Rocephin and clindamycin and oral rifampin---[I believe clindamycin was actually not continued]. The patient does have a PICC line for ongoing IV antibiotic that was given and Center. The patient in addition has right lower extremity cellulitis as well. On May 08, 2025 the patient again presented to [place] emergency room due to the patient having more fatigue and that her cellulitis seems to worsen [by the daughter's recollection] in the medial aspect of her right thigh. Bed the patient had blood culture again and the patient was sent back to her care facility when they felt that the patient was stable. However today the patient was called and states that the blood culture on May 08 came back positive for gram-positive cocci. The patient's daughter decided to bring her back to our emergency room rather than [place] for further management. Otherwise there is no report of any recent fever, chills, nausea, vomiting, diarrhea, chest pain or coughing. Blood culture at [facility] was in fact 1 detection of coag-negative staph In the emergency room, the patient remains hemodynamically stable. Labs were relatively benign. Per our ER physician the patient's lower extremity cellulitis seems to resolve in some area but worsens in others. Another set of blood cultures were drawn. Empiric vancomycin was given due to the fact that the patient recent repeat blood culture grew out gram-positive cocci at [place] emergency room. Patient was admitted by the commodity buyer on ceftriaxone oral rifampin started clindamycin and vancomycin repeat blood cultures were drawn Important to note that procalcitonin was reduced (04/26 -2.39, 04/27 -1.51, 05/09 -0.082) Hospital course: 05/10: Overnight there were no events hard copy of the records were obtained and was negative for DNA detection of coagulation staff all other DNA were negative including Streptococcus pyogenes Patient in no acute distress alert and cogent at the time of my examination Heart and lungs sounds are distant as per usual the skin erythema is now just very faintly pink and in much smaller areas than my last evaluation 05/11: No events overnight no acute problem reported tolerating medication 05/12: No event overnight feeling stronger 05/13: No new events. She denies leg pain. Case reviewed with Dr. Guzman of Infectious Disease by phone. 05/14: No new events. She denies leg pain. Awaiting long term acceptance. Exam Vital Signs (past 8 hours): - 05/14/25 08:00 05/14/25 08:00 Temperature 96.6 F L Pulse Rate 70 Respiratory Rate 20 Blood Pressure 157/54 H Pulse Oximetry 94 Oxygen Delivery Method Room Air Fraction of Inspired Oxygen 24 SaO2/FiO2 Ratio 400 Oxygen Delivery Method Room Air Oxygen Flow Rate 1 Narrative Exam Narrative: No acute distress Heart and lungs clear Abdomen is benign Right lower extremity with progressive fading and much smaller areas of pinkness Nonfocal neurologic examination Objective Labs 05/11/25 06:35 05/12/25 07:14 Labs: Laboratory Results - last 24 hr 05/13/25 05/13/25 05/13/25 11:56 16:36 20:38 POC Whole Bld Glucose 154 H 162 H 195 H 05/14/25 05/14/25 08:10 11:50 POC Whole Bld Glucose 151 H 156 H [facility] Medical History Conjunctivitis Dermatophytosis Diabetes Diabetic foot ulcer associated with diabetes mellitus due to underlying condition Dysuria Early onset Alzheimer's dementia HTN (hypertension) Hyperlipidemia Hypothyroidism Incontinence Sleep apnea Tinea Social History household members: none Smoking Status: Former smoker Tobacco: How many years used: 25 quit status: quit date established alcohol intake: never substance use type: does not use Assessment & Plan Assessment & Plan narrative: Refractory cellulitis which has been actually responding well to the ceftriaxone clindamycin and oral rifampin at the time of discharge and I believe the plan was to discharge to senior care 05/06 on just IV ceftriaxone and rifampin, unfortunately the clinical presentation and photo documentation the cellulitis rapidly rebound escalated. This has responded quite well to adding back clindamycin * Blood cultures negative since 04/23 * Stop Vancomycin, Rocephin and rifampin 05/[address] Guzman * Started cefadroxil 1g BID prophylaxis on 05/14/2025 (given formulary cefuroxime 500mg BID while in hospital) * PICC line Dc'd 05/13 Streptococcus pyogenes bacteremia * DNA detection, (not blood culture) at [facility] was of coag- negative staph (likely collection contaminant). * Streptococcus pyogenes DNA screening was part of the panel and this was negative * Repeat blood cultures this admission negative to days, no growth on 04/23 cultures Fatigue and cognitive fluctuations, baseline Alzheimer dementia noted * This was interpreted as encephalopathy due to toxemia by the daughter which is quite reasonable given recent medical history * Favor other causes, however such as hypoglycemia due to metformin and in a demented patient would avoid using this in the future as this may confound the clinical picture * Would not resume metformin at discharge (multiple contraindications) Type 2 diabetes * Stable * Sliding scale insulin only at this time * Would not resume metformin at discharge (multiple contraindications) Past medical history: * Morbid obesity * Chronic lymphedema * Dermatophytosis * Diabetic foot ulcer associated with diabetes mellitus due to underlying condition * Early onset Alzheimer's dementia * Sleep apnea * Hyperlipidemia * HTN (hypertension) * Hypothyroidism DVT prophylaxis: * Enoxaparin Code status: * Do not resuscitate Disposition: * Ready for discharge to senior care at this point * Followup with Infectious Disease [facility] Lever Tender Document charge(s): No Charge Codes Subsequent inpatient/observation care: [id number]
--- NOTE | 2025-05-14 13:50 | PT.IPTN ---
Current Diagnoses Bacteremia (05/10/25) Physical Therapy Treatment Note M2 PT-IP Current Condition Start: 05/10/25 12:35 Freq: NEEDED Status: Active Protocol: Document 05/10/25 10:00 AB (Rec: 05/10/25 13:00 AB [id number]) Physical Therapy Current Condition Current Condition Evaluation Date 05/10/25 Treatment Diagnosis LE cellulitis; difficulty in walking Onset Date 05/10/25 M3 PT-IP Subjective Start: 05/10/25 12:35 Freq: NEEDED Status: Active Protocol: Document 05/14/25 13:50 AB (Rec: 05/14/25 17:11 AB Desktop) Subjective Physical Therapy Visit Type Type Treatment Note Visit Start Time 13:50 Visit Stop Time 14:00 Number of 2ND GRADE TEACHER Visits 0 Physical Therapy Visit Comments Patient Comments agreed to ambulate M4 PT-IP Mobility and Gait Start: 05/10/25 12:35 Freq: NEEDED Status: Active Protocol: Document 05/14/25 13:50 AB (Rec: 05/14/25 17:11 AB Desktop) PT-Transfer Assessment Sit to and From Stand Sit to and from Contact Guard Assistance,1 Person Assistance,Use of Stand Upper Extremities Equipment Transfer Assistive Front Wheeled Walker Device Orthotic/Prosthetic No Devices or Brace: Gait Assessment Gait Gait Assistance Standby Assistance,Contact Guard Assist Required: Distance (Feet) 30 Able to Maintain Yes Weight Bearing Status During Gait Assistive Devices Assistive Device Front Wheeled Walker Orthotic/Prosthetic No Devices or Brace: Gait Deviations General Gait Pattern Antalgic,Decreased Stride Length,Decreased Feet Clearance,Step-to Gait Factors Limiting Gait Function Factors Limiting Decreased Activity Tolerance,Decreased Strength, Gait Function Difficulty Following Directions,Limited Range of Motion ,Pain,Poor Balance,Poor Safety Awareness,Respiratory Distress Comments Gait Comments pt sitting on the chair with family and visitors in room. Pt hesitant but agreed to do ambulation. visitors encouraged pt to participate. sit to stand from chair CGA and ambulated in room ~ 30 ft using fWW SBA to CGA. pt sat back on chair and refused further ambulation. positioned pt on the chair. call light and table placed within reach. M5 PT-IP Objective Assessments Start: 05/10/25 12:35 Freq: NEEDED Status: Active Protocol: Document 05/10/25 10:00 AB (Rec: 05/10/25 13:00 AB [id number]) Orientation Orientation/Cognition Level of Alertness Alert Orientation Name Language Function Hard of Hearing Ability Safety Awareness Decreased Safety Awareness Memory Description Short Term Impaired,Longterm Impaired Strength Lower Extremity Strength Assessment Bilaterally Impaired Hip 3-/5 Knee 3+/5 Muscle Tone Muscle Tone WNL Yes M6 PT-IP Treatment Start: 05/10/25 12:35 Freq: NEEDED Status: Active Protocol: Document 05/14/25 13:50 AB (Rec: 05/14/25 17:11 AB Desktop) Physical Therapy Treatment Education Education Provided Safety M7 PT-IP Assessment and Plan Start: 05/10/25 12:35 Freq: NEEDED Status: Active Protocol: Document 05/14/25 13:50 AB (Rec: 05/14/25 17:11 AB Desktop) PT Summary Assessment and Plan Potential Rehabilitation Fair Potential Summary Impairments Strength,Balance,Cognition,Bed Mobility,Transfers,Gait, Activity Tolerance Progress Towards Slow Progress due to Activity Tolerance,Slow Progress - Goals Other Assessment Summary pt requiring SBA to CGA with transfers and ambulation using FWW but continues to have decrease activity tolerance affecting level of assistance. pt will benefit from SNF rehab to improve overall strength and functional independence. Goals Bed Mobility Goal Minimal Assistance Transfer Goal Minimal Assistance,Front Wheeled Walker,Four Wheeled Walker Gait Goal Minimal Assistance,Front Wheel Walker,Four Wheel Walker Gait Distance 25 Other Goals improve bed mobility, transfers, ambulation using 4WW ~ 50 ft CGA Days to Meet Goals 10 Frequency of Treatment Frequency Of Once a Day Treatment Treatment Plan Physical Therapy Bed Mobility Training,Transfer Training,Gait Training, Treatment Plan Therapeutic Exercise,Balance Retraining,Discharge Planning,Hot or Cold Pack,Neuromuscular Re-ed, Coordination Retraining,Manual Therapy Recommendations To Nursing Amount of Assist 1 Person Assist Needed Discharge Recommendations PT Discharge SNF Rehab Recommendations Transportation Needs Wheelchair/Cabulance at Discharge - PT assist 1
[2025-05-14 21:16] VITALS: BP 137/61; PULSE 74; RESP 16; TEMP 36.2; O2SAT 93
[2025-05-14] MEDS: PRAVASTATIN 20 MG TABLET PO (21:41)
--- NOTE | 2025-05-15 00:29 | PC.NURSE ---
Patient reported to RN Jan Miranda of difficulty breathing. Jan Miranda contacted hospitalist to order breathing treatment and called RT to assist. This RN, upon arriving to patient room, observed the patient taking short shallow breaths, on 2L O2 NC satting 100%, verbally complaining of difficulty breathing and discomfort. Patient only able to speak in short sentences between breaths. Patient denied chest pain or pressure. Patient able to follow deep breathing exercises as instructed by this RN. Sat patient at side of bed for comfort per patient request. Upon arrival of RT to administer albuterol nebulizer, patient stated she did not know why she needed a breathing treatment, stating she was not short of breath, and it must've been anxiety. Endorsed anxiety to this RN when assessed after RT left. Discussed situation with provider, recollected similar experience on 05/14 during the night, and provider ordered 2 mg IV ativan for anxiety.
[2025-05-15 08:00] VITALS: BP 145/55; PULSE 73; RESP 19; TEMP 36.4; O2SAT 97
[2025-05-15] MEDS: HEPARIN 5,000 UNIT/ML VIAL 5000 UNIT SUBCUT ×2 (09:23→20:31)
[2025-05-15] MEDS: MEMANTINE HCL 5 MG TABLET PO ×2 (09:23→20:31)
[2025-05-15 09:24] VITALS: BP 145/55; PULSE 60
[2025-05-15] MEDS: LOSARTAN 50 MG TABLET PO ×2 (09:24→20:31)
[2025-05-15] MEDS: SERTRALINE 50 MG TABLET 75 MG PO (09:24)
[2025-05-15] MEDS: METOPROLOL IR 50 MG TABLET PO ×2 (09:25→20:31)
[2025-05-15] MEDS: NYSTATIN POWDER 15GM 1 APPLIC TOP ×2 (09:43→20:32)
--- NOTE | 2025-05-15 10:47 | P.PN_ITS ---
Subjective Subjective Date Patient Seen: 05/15/25 Time Patient Seen: 08:30 Interval history: Chief complaint: Cellulitis previous bacteremia with Streptococcus pyogenes History of present illness: 05/09: 74-year-old female with past medical history of morbid obesity, hyperlipidemia, hypertension, hypothyroidism, early onset of Alzheimer's dementia, sleep apnea and recent bacteremia presents with fatigue and positive blood culture. Of note the patient's daughter at the bedside and reports that the patient was recently admitted to the hospital and discharged on May 06, 2025 due to bacteremia. The patient supposedly was discharged on IV Rocephin and clindamycin and oral rifampin---[I believe clindamycin was actually not continued]. The patient does have a PICC line for ongoing IV antibiotic that was given and [facility]. The patient in addition has right lower extremity cellulitis as well. On May 08, 2025 the patient again presented to [place] emergency room due to the patient having more fatigue and that her cellulitis seems to worsen [by the daughter's recollection] in the medial aspect of her right thigh. Bed the patient had blood culture again and the patient was sent back to her care facility when they felt that the patient was stable. However today the patient was called and states that the blood culture on May 08 came back positive for gram-positive cocci. The patient's daughter decided to bring her back to our emergency room rather than [facility] for further management. Otherwise there is no report of any recent fever, chills, nausea, vomiting, diarrhea, chest pain or coughing. Blood culture at [facility] was in fact 1 detection of coag-negative staph In the emergency room, the patient remains hemodynamically stable. Labs were relatively benign. Per our ER physician the patient's lower extremity cellulitis seems to resolve in some area but worsens in others. Another set of blood cultures were drawn. Empiric vancomycin was given due to the fact that the patient recent repeat blood culture grew out gram-positive cocci at [place] emergency room. Patient was admitted by the hand assembler for puller over on ceftriaxone oral rifampin started clindamycin and vancomycin repeat blood cultures were drawn Important to note that procalcitonin was reduced (04/26 -2.39, 04/27 -1.51, 05/09 -0.082) Hospital course: 05/10: Overnight there were no events hard copy of the records were obtained and was negative for DNA detection of coagulation staff all other DNA were negative including Streptococcus pyogenes Patient in no acute distress alert and cogent at the time of my examination Heart and lungs sounds are distant as per usual the skin erythema is now just very faintly pink and in much smaller areas than my last evaluation 05/11: No events overnight no acute problem reported tolerating medication 05/12: No event overnight feeling stronger 05/13: No new events. She denies leg pain. Case reviewed with Dr. Guzman of Infectious Disease by phone. 05/14: No new events. She denies leg pain. Awaiting fci acceptance. PICC taken out. 05/15: No new events. She denies leg pain. Awaiting fci placement. Exam Vital Signs (past 8 hours): - 05/15/25 08:00 05/15/25 09:24 Temperature 97.6 F Pulse Rate 73 60 Respiratory Rate 19 Blood Pressure 145/55 H 145/55 H Pulse Oximetry 97 Oxygen Flow Rate 2 Fraction of Inspired Oxygen 24 SaO2/FiO2 Ratio 400 Oxygen Delivery Method Room Air Oxygen Flow Rate 2 Narrative Exam Narrative: No acute distress Heart and lungs clear Abdomen is benign Right lower extremity with progressive fading and much smaller areas of pinkness Nonfocal neurologic examination Objective Labs 05/11/25 06:35 05/12/25 07:14 Labs: Laboratory Results - last 24 hr 05/14/25 05/14/25 05/14/25 11:50 16:42 20:40 POC Whole Bld Glucose 156 H 153 H 187 H 05/15/25 07:23 POC Whole Bld Glucose 128 H PFS Medical History Conjunctivitis Dermatophytosis Diabetes Diabetic foot ulcer associated with diabetes mellitus due to underlying condition Dysuria Early onset Alzheimer's dementia HTN (hypertension) Hyperlipidemia Hypothyroidism Incontinence Sleep apnea Tinea Social History household members: none Smoking Status: Former smoker Tobacco: How many years used: 25 quit status: quit date established alcohol intake: never substance use type: does not use Assessment & Plan Assessment & Plan narrative: Refractory cellulitis which has been actually responding well to the ceftriaxone clindamycin and oral rifampin at the time of discharge and I believe the plan was to discharge to senior care 8/29 on just IV ceftriaxone and rifampin, unfortunately the clinical presentation and photo documentation the cellulitis rapidly rebound escalated. This has responded quite well to adding back clindamycin * Blood cultures negative since 04/23 * Stop Vancomycin, Rocephin and rifampin 05/[address] Guzman * Started cefadroxil 1g BID prophylaxis on 05/14/2025 (given formulary cefuroxime 500mg BID while in hospital) * PICC line Dc'd 05/13 Streptococcus pyogenes bacteremia * DNA detection, (not blood culture) at [facility] was of coag- negative staph (likely collection contaminant). * Streptococcus pyogenes DNA screening was part of the panel and this was negative * Repeat blood cultures this admission negative to days, no growth on 04/23 cultures Fatigue and cognitive fluctuations, baseline Alzheimer dementia noted * This was interpreted as encephalopathy due to toxemia by the daughter which is quite reasonable given recent medical history * Favor other causes, however such as hypoglycemia due to metformin and in a demented patient would avoid using this in the future as this may confound the clinical picture * Would not resume metformin at discharge (multiple contraindications) Type 2 diabetes * Stable * Sliding scale insulin only at this time * Would not resume metformin at discharge (multiple contraindications) Past medical history: * Morbid obesity * Chronic lymphedema * Dermatophytosis * Diabetic foot ulcer associated with diabetes mellitus due to underlying condition * Early onset Alzheimer's dementia * Sleep apnea * Hyperlipidemia * HTN (hypertension) * Hypothyroidism DVT prophylaxis: * Enoxaparin Code status: * Do not resuscitate Disposition: * Ready for discharge to senior care at this point * Followup with Infectious Disease. *TEXT DR. GUZMAN FINAL DISCHARGE DISPOSITION WHEN ARRANGED* PROFEE Loss Prevention Representative Document charge(s): No Charge Codes Subsequent inpatient/observation care: [id number]
--- NOTE | 2025-05-15 11:04 | PT.IPTN ---
Current Diagnoses Bacteremia (05/10/25) Physical Therapy Treatment Note M2 PT-IP Current Condition Start: 05/10/25 12:35 Freq: NEEDED Status: Active Protocol: Document 05/10/25 10:00 AB (Rec: 05/10/25 13:00 AB [id number]) Physical Therapy Current Condition Current Condition Evaluation Date 05/10/25 Treatment Diagnosis LE cellulitis; difficulty in walking Onset Date 05/10/25 M3 PT-IP Subjective Start: 05/10/25 12:35 Freq: NEEDED Status: Active Protocol: Document 05/15/25 10:30 DCW (Rec: 05/15/25 11:04 DCW [id number]) Subjective Physical Therapy Visit Type Visit Start Time 10:30 Visit Stop Time 10:55 Number of CERTIFIED TEACHER ASSISTANT Visits 0 Physical Therapy Visit Comments Patient Comments Pt initially refused, but then noted her butt hurts and I should probably get up. M4 PT-IP Mobility and Gait Start: 05/10/25 12:35 Freq: NEEDED Status: Active Protocol: Document 05/15/25 10:30 DCW (Rec: 05/15/25 11:04 DCW [id number]) PT-Bed Mobility Assessment Supine to Sit Supine to Sit Minimal Assistance,Moderate Assistance,1 Person Assistance,Head of Bed Elevated,Bedrails PT-Transfer Assessment Sit to and From Stand Sit to and from Contact Guard Assistance,1 Person Assistance,Use of Stand Upper Extremities Equipment Transfer Assistive Front Wheeled Walker Device Orthotic/Prosthetic No Devices or Brace: Transfers Transfer Destination Bed,Chair Transfer Technique Ambulated Transfer Ability Level of Assist Contact Guard Assistance,1 Person Assistance,Use of Upper Extremities Comments Mobility Comments Pt able to get self to EOB with min-mod Ax1, mainly to maintain upright posture after getting her legs off the edge of the bed. CGA sit->stand, and CGA to ambulate around bed ~15' /c FWW to recliner, CGA stand->sit. Pt very fatigued after this, was not wanting to do any other activity. Gait Assessment Gait Gait Assistance Standby Assistance,Contact Guard Assist Required: Distance (Feet) 15 Able to Maintain Yes Weight Bearing Status During Gait Assistive Devices Assistive Device Front Wheeled Walker Orthotic/Prosthetic No Devices or Brace: Gait Deviations General Gait Pattern Antalgic,Decreased Stride Length,Decreased Feet Clearance,Step-to Gait Factors Limiting Gait Function Factors Limiting Decreased Activity Tolerance,Decreased Strength, Gait Function Difficulty Following Directions,Limited Range of Motion ,Pain,Poor Balance,Poor Safety Awareness,Respiratory Distress M5 PT-IP Objective Assessments Start: 05/10/25 12:35 Freq: NEEDED Status: Active Protocol: Document 05/10/25 10:00 AB (Rec: 05/10/25 13:00 AB [id number]) Orientation Orientation/Cognition Level of Alertness Alert Orientation Name Language Function Hard of Hearing Ability Safety Awareness Decreased Safety Awareness Memory Description Short Term Impaired,Correction Impaired Strength Lower Extremity Strength Assessment Bilaterally Impaired Hip 3-/5 Knee 3+/5 Muscle Tone Muscle Tone WNL Yes M6 PT-IP Treatment Start: 05/10/25 12:35 Freq: NEEDED Status: Active Protocol: Document 05/14/25 13:50 AB (Rec: 05/14/25 17:11 AB Desktop) Physical Therapy Treatment Education Education Provided Safety M7 PT-IP Assessment and Plan Start: 05/10/25 12:35 Freq: NEEDED Status: Active Protocol: Document 05/15/25 10:30 DCW (Rec: 05/15/25 11:04 DCW [id number]) PT Summary Assessment and Plan Summary Impairments Strength,Balance,Cognition,Bed Mobility,Transfers,Gait, Activity Tolerance Progress Towards Slow Progress due to Activity Tolerance,Slow Progress - Goals Other Assessment Summary Sit<->Stand transfers and gait all improving, CGA/SBA . Did require Min-Mod Ax1 with bed mobility, difficulty sitting up without assistance. Still fatiguing very quickly with activity, continue to expect d/c to SNF for rehabilitation Goals Bed Mobility Goal Minimal Assistance Transfer Goal Minimal Assistance,Front Wheeled Walker,Four Wheeled Walker Gait Goal Minimal Assistance,Front Wheel Walker,Four Wheel Walker Gait Distance 25 Other Goals improve bed mobility, transfers, ambulation using 4WW ~ 50 ft CGA Days to Meet Goals 10 Frequency of Treatment Frequency Of Once a Day Treatment Treatment Plan Physical Therapy Bed Mobility Training,Transfer Training,Gait Training, Treatment Plan Therapeutic Exercise,Balance Retraining,Discharge Planning,Hot or Cold Pack,Neuromuscular Re-ed, Coordination Retraining,Manual Therapy Recommendations To Nursing Amount of Assist 1 Person Assist Needed Discharge Recommendations PT Discharge SNF Rehab Recommendations Transportation Needs Wheelchair/Cabulance at Discharge - PT assist 1
[2025-05-15] MEDS: INSULIN LISPRO 100 UNIT/ML 3ML VIAL SUBCUT ×2 (11:54→17:04)
--- NOTE | 2025-05-15 12:28 | PC.NURSE ---
Pt currently in chair. Denies pain. On 2L NC sat 96%. Belongings on side table within reach. Call light within reach.
--- NOTE | 2025-05-15 13:15 | CM.DPNOTE ---
DCP Cont Email sent to Terra at [facility] included updated PT/OT/MD notes. Plan: Discharge to [facility] anticipated Friday, awaiting insurance auth. Transport likely via van. LULA
--- NOTE | 2025-05-15 16:20 | PC.NURSE ---
Pt's son (POA) and [id number] came to nursing station and told this RN that they had been told that pt's PICC line would be staying in for long-term antibiotics, and they were confused by the notes in pt's online portal. Dr. Walker notified and met with family in the waiting room to discuss. Family reiterated that they do not want PICC removed right now. PICC is still in.
[2025-05-15 19:00] VITALS: BP 147/77; PULSE 62; RESP 18; TEMP 35.8; O2SAT 100
[2025-05-15 20:31] VITALS: BP 147/77; PULSE 62
[2025-05-15] MEDS: PRAVASTATIN 20 MG TABLET PO (20:31)
[2025-05-16 06:58] LABS: Add Manual Diff / Slide Review NO; Hematocrit 32.9 % (36-46); Hemoglobin 10.9 g/dL (12.0-16.0); Lymphocytes Absolute Auto 1400 /uL (1100-4500); Mean Corpuscular HGB Conc 33.3 % (30-36); Mean Corpuscular Hemoglobin 29.3 PG (26-34); Mean Corpuscular Volume 88.2 fL (80-100); Platelet Count 281 X10^3/uL (150-400)
[2025-05-16 07:09] LABS: Blood Urea Nitrogen 6 mg/dL (7-17); Calcium 9.2 mg/dL (8.4-10.2); Carbon Dioxide 26 mmol/L (22-32); Chloride 104 mmol/L (98-107); Estimated Glomerular Filt Rate > 60 mL/min (>60); Glucose 122 mg/dL (70-99); HEMOLYSIS < 15 (0-50); Potassium 4.1 mmol/L (3.4-5.1); Sodium 137 mmol/L (137-145)
[2025-05-16 08:00] VITALS: BP 136/89; PULSE 62; RESP 19; TEMP 36.4; O2SAT 97
[2025-05-16 09:07] VITALS: BP 136/89; PULSE 91
[2025-05-16] MEDS: LOSARTAN 50 MG TABLET PO ×2 (09:07→22:00)
[2025-05-16] MEDS: MEMANTINE HCL 5 MG TABLET PO ×2 (09:08→22:02)
[2025-05-16] MEDS: SERTRALINE 50 MG TABLET 75 MG PO (09:08)
[2025-05-16] MEDS: METOPROLOL IR 50 MG TABLET PO ×2 (09:08→22:02)
[2025-05-16] MEDS: HEPARIN 5,000 UNIT/ML VIAL 5000 UNIT SUBCUT ×2 (09:08→22:00)
[2025-05-16] MEDS: NYSTATIN POWDER 15GM 1 APPLIC TOP ×2 (09:09→22:05)
--- NOTE | 2025-05-16 09:47 | PT.IPTN ---
Current Diagnoses Bacteremia (05/10/25) Physical Therapy Treatment Note M2 PT-IP Current Condition Start: 05/10/25 12:35 Freq: NEEDED Status: Active Protocol: Document 05/10/25 10:00 AB (Rec: 05/10/25 13:00 AB [id number]) Physical Therapy Current Condition Current Condition Evaluation Date 05/10/25 Treatment Diagnosis LE cellulitis; difficulty in walking Onset Date 05/10/25 M3 PT-IP Subjective Start: 05/10/25 12:35 Freq: NEEDED Status: Active Protocol: Document 05/16/25 09:39 [facility] (Rec: 05/16/25 09:46 [facility] [id number]) Subjective Physical Therapy Visit Type Type Treatment Note Visit Start Time 09:14 Visit Stop Time 09:37 Number of ELEVATED MOTORMAN Visits 0 Physical Therapy Visit Comments Patient Comments Pt agreed to get up after edu re: importance of mobility M4 PT-IP Mobility and Gait Start: 05/10/25 12:35 Freq: NEEDED Status: Active Protocol: Document 05/16/25 09:39 [facility] (Rec: 05/16/25 09:46 [facility] [id number]) PT-Bed Mobility Assessment Supine to Sit Supine to Sit Moderate Assistance,Head of Bed Elevated,Bedrails Scooting Scooting to Edge of Moderate Assistance Bed PT-Transfer Assessment Sit to and From Stand Sit to and from Minimal Assistance,Use of Upper Extremities Stand Equipment Transfer Assistive Gait Belt,Front Wheeled Walker Device Orthotic/Prosthetic No Devices or Brace: Transfers Transfer Destination Bed,Chair Transfer Technique Ambulated Transfer Ability Level of Assist Contact Guard Assistance,1 Person Assistance,Use of Upper Extremities Comments Mobility Comments Pt did supine to sit with mod A mainly to help w/LLE progression over EOB and support to back as she scooted . She was able to sit indep EOB once at EOB. sit to stand from bed required 2 attempts and 2nd time was able to stand to FWW then amb about 5 ft to chair. Refused further amb noting fatigue. With convincing pt, did another sit to stand to adjust set up under her then 2 further sit to stands with standing about 30 sec to 1 min ea to hug son and DIL. She was left reclined w/call light in reach Gait Assessment Gait Gait Assistance Contact Guard Assist Required: Distance (Feet) 5 Able to Maintain Yes Weight Bearing Status During Gait Assistive Devices Assistive Device Front Wheeled Walker Orthotic/Prosthetic No Devices or Brace: Gait Deviations General Gait Pattern Antalgic,Decreased Stride Length,Decreased Feet Clearance,Step-to Gait Factors Limiting Gait Function Factors Limiting Decreased Activity Tolerance,Decreased Strength, Gait Function Difficulty Following Directions,Limited Range of Motion ,Pain,Poor Balance,Poor Safety Awareness,Respiratory Distress M5 PT-IP Objective Assessments Start: 05/10/25 12:35 Freq: NEEDED Status: Active Protocol: Document 05/10/25 10:00 AB (Rec: 05/10/25 13:00 AB [id number]) Orientation Orientation/Cognition Level of Alertness Alert Orientation Name Language Function Hard of Hearing Ability Safety Awareness Decreased Safety Awareness Memory Description Short Term Impaired,Senior Quality Control Inspector Impaired Strength Lower Extremity Strength Assessment Bilaterally Impaired Hip 3-/5 Knee 3+/5 Muscle Tone Muscle Tone WNL Yes M6 PT-IP Treatment Start: 05/10/25 12:35 Freq: NEEDED Status: Active Protocol: Document 05/16/25 09:39 [facility] (Rec: 05/16/25 09:46 [facility] [id number]) Physical Therapy Treatment Other Treatments Other Treatment APs and 4 sit to stands noted above Performed M7 PT-IP Assessment and Plan Start: 05/10/25 12:35 Freq: NEEDED Status: Active Protocol: Document 05/16/25 09:39 [facility] (Rec: 05/16/25 09:46 [facility] [id number]) PT Summary Assessment and Plan Summary Impairments Strength,Balance,Cognition,Bed Mobility,Transfers,Gait, Activity Tolerance Progress Towards Slow Progress due to Activity Tolerance,Slow Progress - Goals Other Assessment Summary Pt cont to have dec activity tolerance and reports fatigue w/activity. She did 4 sit to stands throughout session w/min A and stood CGA at that time. She would benefit from rehab to work on improving independence and activity tolerance for ADLs. Goals Bed Mobility Goal Minimal Assistance Transfer Goal Minimal Assistance,Front Wheeled Walker,Four Wheeled Walker Gait Goal Minimal Assistance,Front Wheel Walker,Four Wheel Walker Gait Distance 25 Other Goals improve bed mobility, transfers, ambulation using 4WW ~ 50 ft CGA Days to Meet Goals 10 Frequency of Treatment Frequency Of Once a Day Treatment Treatment Plan Physical Therapy Bed Mobility Training,Transfer Training,Gait Training, Treatment Plan Therapeutic Exercise,Balance Retraining,Discharge Planning,Hot or Cold Pack,Neuromuscular Re-ed, Coordination Retraining,Manual Therapy Recommendations To Nursing Amount of Assist 1 Person Assist Needed Discharge Recommendations PT Discharge SNF Rehab Recommendations Transportation Needs Wheelchair/Cabulance at Discharge - PT assist 1
--- NOTE | 2025-05-16 11:10 | CM.DPC ---
Addendum entered by SANDY Cardenas 05/16/25 14:16: ADD: ALFREDO met bedside with pt and explained role, pt pleasant but forgetful, and updated her on acceptance at [facility] and insurance auth for SNF still pending. Pt agreeable with SW contacting her son Adams or ANITRA Wheat to update as well. ALFREDO called son and ANITRA and spoke to Mary Alice and updated her on potential for discharge to [facility] tomorrow Tu05/17 if insurance auth obtained and she confirms this is their preference. ANITRA confirms plan is SNF rehab and then transition to LTC at [facility] and she wants to confirm [facility] aware that pt will need tran bed at SNF as well as tran w/c for transport and that [facility] aware that pt will need LTC as well. Left msg for Terra at [facility] with above information from ANITRA Wheat via secure email about pt's bariatric size and interest in LTC after SNF. BF Original Note: DCP Cont: Per MD, pt stable for discharge once SNF auth secured and pt has safe d/c plan. ALFREDO called Terra at [facility] and she confirms she called insurance this morning and they are requesting updated clinicals to review before making SNF determination. ALFREDO sent PT/OT notes from today to review. SANDY Cardenas
--- NOTE | 2025-05-16 11:36 | OT.IPNOTE ---
PT refused OT needs as is content to have nursing assist her needs as prior pt needing assist for most ADL needs except grooming and oral care needs. Pt just wanting to focus on PT needs and therefore discharge pt for OT services.
--- NOTE | 2025-05-16 12:00 | P.PN_ITS ---
Subjective Subjective Interval history: Hospital course: 05/10: Overnight there were no events hard copy of the records were obtained and was negative for DNA detection of coagulation staff all other DNA were negative including Streptococcus pyogenes Patient in no acute distress alert and cogent at the time of my examination Heart and lungs sounds are distant as per usual the skin erythema is now just very faintly pink and in much smaller areas than my last evaluation 05/11: No events overnight no acute problem reported tolerating medication 05/12: No event overnight feeling stronger 05/13: No new events. She denies leg pain. Case reviewed with Dr. Guzman of Infectious Disease by phone. 05/14: No new events. She denies leg pain. Awaiting detention acceptance. PICC taken out. 05/15: No new events. She denies leg pain. Awaiting detention placement. S: Doing well, no complaints. More mentally clear. O: VS below. NAD, alert and oriented. Fluent speech. Lungs are clear, normal rate and effort. Heart is regular, no murmur gallop or rub. Abdomen is soft, non distended. Extremities are free of edema. Some redness of right leg. Improved in general. A/P: 1. Leg cellulitis. Recently discussed with ID (Dimitris). * Blood cultures negative since 04/23 * Stopped IV Vancomycin, Rocephin and rifampin 05/[address] Guzman * Started Cefadroxil 1g BID prophylaxis on 05/14/2025 (given formulary cefuroxime 500mg BID while in hospital), continue indefinitely. * PICC line Dc'd 05/13 2. Streptococcus pyogenes bacteremia * DNA detection, (not blood culture) at [facility] was of coag- negative staph (likely collection contaminant). * Streptococcus pyogenes DNA screening was part of the panel and this was negative. * Repeat blood cultures this admission negative to days, no growth on 04/23 cultures. 3. Cognitive fluctuations, baseline Alzheimer dementia. * This was interpreted as encephalopathy due to toxemia by the daughter which is quite reasonable given recent medical history Type 2 diabetes * Stable * Sliding scale insulin only at this time * Would not resume metformin at discharge (multiple contraindications) * Past medical history: * Morbid obesity * Chronic lymphedema * Dermatophytosis * Diabetic foot ulcer associated with diabetes mellitus due to underlying condition * Early onset Alzheimer's dementia * Sleep apnea * Hyperlipidemia * HTN (hypertension) * Hypothyroidism PLAN: -continue oral antibiotics. -sent updated photograph of the patient's leg to Dr. Shanks. -discharge planning includes [facility], awaiting authorization. DVT prophylaxis: * Enoxaparin Code status: * Do not resuscitate Disposition: * Ready for discharge to detention at this point * Followup with Infectious Disease. *TEXT DR. GUZMAN FINAL DISCHARGE DISPOSITION WHEN ARRANGED* Exam Vital Signs (past 8 hours): - 05/17/25 01:32 Pulse Oximetry 96 Oxygen Delivery Method Nasal Cannula Oxygen Flow Rate 2 Fraction of Inspired Oxygen 28 Fraction of Inspired Oxygen 28 SaO2/FiO2 Ratio 342 Oxygen Delivery Method Nasal Cannula Oxygen Flow Rate 2 Objective Labs 05/16/25 06:48 05/16/25 06:48 Labs: Laboratory Results - last 24 hr 05/16/25 05/16/25 05/16/25 07:52 12:19 17:00 POC Whole Bld Glucose 114 H 136 H 166 H 05/16/25 20:51 POC Whole Bld Glucose 159 H PFS Medical History Conjunctivitis Dermatophytosis Diabetes Diabetic foot ulcer associated with diabetes mellitus due to underlying condition Dysuria Early onset Alzheimer's dementia HTN (hypertension) Hyperlipidemia Hypothyroidism Incontinence Sleep apnea Tinea Social History household members: none Smoking Status: Former smoker Tobacco: How many years used: 25 quit status: quit date established alcohol intake: never substance use type: does not use Assessment & Plan Time-Based Coding :: [TOTAL MINUTES] spent with patient and on the chart (including review of chart, obtaining history, exam, reviewing outside data, placing orders, documenting exam and treatment plan, and counseling patient) on [DATE].
[2025-05-16] MEDS: INSULIN LISPRO 100 UNIT/ML 3ML VIAL SUBCUT ×2 (12:28→17:02)
--- NOTE | 2025-05-16 15:26 | DIET.CONS ---
Dietary Consultation Note Admission Date: 05/10/2025 04:15 Assessment: 74 y F admitted for cellulitis. Dietitian screened for LOS. EMR reviewed, variable PO intakes, majority 50-100%. DFM reviewed for meal composition. A1c 7.1% on 04/24/25, majority of BG <180 during this admission. Ht: 175.26 cm Wt: 173 kg BMI: 56.3 UBW: 178 kg on 04/21/25, 181.437 kg on 06/14/24; non-severe weight loss Last BM: 05/16/25 (05/16/25 10:46) MNA: Sivakumar Score: 18 Diet: 05/11/25 Lunch Carbohydrate Consistent Diet Diet Modifications: heart healthy Carbohydrate level: Medium (3 CHO) Reflex DM orders: No Food Texture: Level 7 - Regular Liquid Consistency: Level 0 - Thin Nutrition Percent Meal Consumed 100% 05/16/25 13:35 Percent Meal Consumed 80 05/16/25 09:00 Percent Meal Consumed 25% 05/15/25 18:50 Labs: RBC 3.73 X10^6/uL (4.0-5.2) L 05/16/25 06:48 Hgb 10.9 g/dL (12.0-16.0) L 05/16/25 06:48 Hct 32.9 % (36-46) L 05/16/25 06:48 Creatinine 0.47 mg/dL (0.52-1.04) L 05/16/25 06:48 Lactate 1.3 mmol/L (0.7-2.1) 05/09/25 23:30 Nutrition Diagnosis: none at this time. Monitoring/Evaluations: PO intakes Electronically Signed by: Katelin Earl 05/16/25 15:26 Clinical Dietitian [address] [address]
[2025-05-16 20:00] VITALS: BP 127/63; PULSE 62; RESP 18; TEMP 36.1; O2SAT 96
[2025-05-16 22:00] VITALS: BP 136/89; PULSE 91
[2025-05-16] MEDS: PRAVASTATIN 20 MG TABLET PO (22:02)
[2025-05-17 01:32] VITALS: O2SAT 96
[2025-05-17 08:00] VITALS: BP 160/64; PULSE 67; RESP 18; TEMP 35.9; O2SAT 97
[2025-05-17] MEDS: INSULIN LISPRO 100 UNIT/ML 3ML VIAL SUBCUT ×2 (08:48→12:11)
[2025-05-17] MEDS: MEMANTINE HCL 5 MG TABLET PO (10:00)
[2025-05-17] MEDS: HEPARIN 5,000 UNIT/ML VIAL 5000 UNIT SUBCUT (10:01)
[2025-05-17] MEDS: SERTRALINE 50 MG TABLET 75 MG PO (10:01)
[2025-05-17] MEDS: LOSARTAN 50 MG TABLET PO (10:02)
[2025-05-17] MEDS: METOPROLOL IR 50 MG TABLET PO (10:02)
[2025-05-17] MEDS: NYSTATIN POWDER 15GM 1 APPLIC TOP (10:05)
[2025-05-17 11:07] VITALS: O2SAT 97
--- NOTE | 2025-05-17 12:11 | P.DS_ITS ---
History of Present Illness History of Present Illness Chief complaint: Swelling R leg Narrative: From H&P: female with past medical history of morbid obesity, hyperlipidemia, hypertension, hypothyroidism, early onset of Alzheimer's dementia, sleep apnea and recent bacteremia presents with fatigue and positive blood culture. Of note the patient's daughter at the bedside and reports that the patient was recently admitted to the hospital and discharged on May 06, 2025 due to bacteremia. The patient supposedly was discharged on IV Rocephin and clindamycin with rifampin. The patient does have a PICC line for ongoing IV antibiotic that was given and Center. The patient in addition has right lower extremity cellulitis as well. On May 08, 2025 the patient again presented to [facility] emergency room due to the patient having more fatigue and that her cellulitis seems to worsens in the medial aspect of her right thigh. Bed the patient had blood coat off again and the patient was sent back to her care facility when they felt that the patient was stable. However today the patient was called and states that the blood culture on May 08 came back positive for gram-positive cocci. The patient's daughter decided to bring her back to our emergency room rather than [facility] for further management. Otherwise there is no report of any recent fever, chills, nausea, vomiting, diarrhea, chest pain or coughing. In the emergency room, the patient remains hemodynamically stable. Labs were relatively benign. Per our ER physician the patient's lower extremity cellulitis seems to resolve in some area but worsens in others. Another set of blood cultures were drawn. Empiric vancomycin was given due to the fact that the patient recent repeat blood culture grew out gram-positive cocci at [facility] emergency room. Discharge Providers Provider Date of admission: 05/10/25 04:15 Discharge Date: 05/17/25 Primary care physician: Doctor Sameer MD Consults: 05/10/25 03:34 Consult to Occupational Therapy Evaluate & Treat Comment: Physician Instructions: Evaluate and treat Consult to Physical Therapy Evaluate & Treat Comment: Physician Instructions: Evaluate and Treat Discharge provider: Ba Quach MD Summary Hospital Course Discharge Diagnosis: 1. Leg cellulitis. Recently discussed with ID (Dimitris). * Blood cultures negative since 04/23 * Stopped IV Vancomycin, Rocephin and rifampin 05/[address] Guzman * Started Cefadroxil 1g BID prophylaxis on 05/14/2025 (given formulary cefuroxime 500mg BID while in hospital), continue indefinitely. 2. Bacteremia not present on admission. Blood cx on 05/09 and 05/10 negative. * DNA detection, (not blood culture) at [facility] was of coag- negative staph (likely collection contaminant). * Streptococcus pyogenes DNA screening was part of the panel and this was negative. * Repeat blood cultures this admission negative to days, no growth on 04/23 cultures. 3. Cognitive fluctuations, baseline Alzheimer dementia. * This was interpreted as encephalopathy due to toxemia by the daughter which is quite reasonable given recent medical history 4. Type 2 diabetes * Stable * Sliding scale insulin only at this time Chronic medical conditions: * Morbid obesity * Chronic lymphedema * Dermatophytosis * Diabetic foot ulcer associated with diabetes mellitus due to underlying condition * Early onset Alzheimer's dementia * Sleep apnea * Hyperlipidemia * HTN (hypertension) * Hypothyroidism Hospital Course: 05/09: 74-year-old female with past medical history of morbid obesity, hyperlipidemia, hypertension, hypothyroidism, early onset of Alzheimer's dementia, sleep apnea and recent bacteremia presents with fatigue and positive blood culture. Of note the patient's daughter at the bedside and reports that the patient was recently admitted to the hospital and discharged on May 06, 2025 due to bacteremia. The patient supposedly was discharged on IV Rocephin and clindamycin and oral rifampin---[I believe clindamycin was actually not continued]. The patient does have a PICC line for ongoing IV antibiotic that was given and Center. The patient in addition has right lower extremity cellulitis as well. On May 08, 2025 the patient again presented to [facility] emergency room due to the patient having more fatigue and that her cellulitis seems to worsen [by the daughter's recollection] in the medial aspect of her right thigh. Bed the patient had blood culture again and the patient was sent back to her care facility when they felt that the patient was stable. However today the patient was called and states that the blood culture on May 08 came back positive for gram-positive cocci. The patient's daughter decided to bring her back to our emergency room rather than [facility] for further management. Otherwise there is no report of any recent fever, chills, nausea, vomiting, diarrhea, chest pain or coughing. Blood culture at [facility] was in fact 1 detection of coag-negative staph In the emergency room, the patient remains hemodynamically stable. Labs were relatively benign. Per our ER physician the patient's lower extremity cellulitis seems to resolve in some area but worsens in others. Another set of blood cultures were drawn. Empiric vancomycin was given due to the fact that the patient recent repeat blood culture grew out gram-positive cocci at [facility] emergency room. Patient was admitted by the laundry manager on ceftriaxone oral rifampin started clindamycin and vancomycin repeat blood cultures were drawn Important to note that procalcitonin was reduced (04/26 -2.39, 04/27 -1.51, 05/09 -0.082) Hospital course: 05/10: Overnight there were no events hard copy of the records were obtained and was negative for DNA detection of coagulation staff all other DNA were negative including Streptococcus pyogenes Patient in no acute distress alert and cogent at the time of my examination Heart and lungs sounds are distant as per usual the skin erythema is now just very faintly pink and in much smaller areas than my last evaluation 05/11: No events overnight no acute problem reported tolerating medication 05/12: No event overnight feeling stronger 05/13: No new events. She denies leg pain. Case reviewed with Dr. Guzman of Infectious Disease by phone. Recommended remove PICC line and convert to oral antibiotics. Recommended chronic suppressive antibiotics. 05/14: No new events. She denies leg pain. Awaiting fdc acceptance. 05/15: No new events. She denies leg pain. Awaiting fdc placement. 05/16: Leg stables, PO Abx. 05/17: PICC line was taken out after Re confirming with Infectious Disease. She was stable for discharge to fpc facility and has a close follow up appointment with Infectious Disease. Status at Discharge Cognitive/behavioral status at discharge: at baseline, confused Functional status at discharge: uses cane/walker Overall status at discharge: patient is progressing back to baseline Time Spent with Patient Time spent: Greater than 30 minutes Exam Vital Signs (past 8 hours): - 05/17/25 08:00 05/17/25 11:07 Temperature 96.6 F L Pulse Rate 67 Respiratory Rate 18 Blood Pressure 160/64 H Pulse Oximetry 97 97 Oxygen Delivery Method Nasal Cannula Oxygen Flow Rate 1 1 Fraction of Inspired Oxygen 24 Fraction of Inspired Oxygen 24 SaO2/FiO2 Ratio 404 Oxygen Delivery Method Nasal Cannula Oxygen Flow Rate 1 Narrative Exam Narrative: NAD, alert and oriented to person. Fluent speech. Pleasant. Lungs are clear, normal rate and effort. Heart is regular, no murmur gallop or rub. Abdomen is soft, non distended. Extremities are with some fairly stable red patches in the right leg greater than the left leg. Objective Imaging Multiple studies:: Radiologist's impression: CXR: Diffuse prominent pulmonary markings. Suspicious for mild pulmonary edema/fluid overload. Appears improved compared to 05/02/2025. Also in the differential diagnosis is viral/atypical pneumonia or bronchitis. Minor discrepancy with the overnight preliminary interpretation. Pulmonary edema is in the differential diagnosis. Normal by my read. Soft tissue neck: No mandibular erosions are seen. No soft tissue abscess is seen. Labs 05/16/25 06:48 05/16/25 06:48 Labs: Laboratory Results - last 24 hr 05/16/25 05/16/25 05/16/25 12:19 17:00 20:51 POC Whole Bld Glucose 136 H 166 H 159 H 05/17/25 05/17/25 08:10 11:48 POC Whole Bld Glucose 152 H 144 H [facility] Medical History Dermatophytosis Diabetic foot ulcer associated with diabetes mellitus due to underlying condition Dysuria Conjunctivitis Tinea Early onset Alzheimer's dementia Incontinence Sleep apnea Hyperlipidemia HTN (hypertension) Hypothyroidism Diabetes Social History household members: none Smoking Status: Former smoker Tobacco: How many years used: 25 quit status: quit date established alcohol intake: never substance use type: does not use Discharge Assessment & Plan Assessment and Plan Assessment: 1. Recurrent leg cellulitis, improved. Plan of Treatment: The patient will start on chronic suppressive antibiotic therapy with Ceftin 1000mg PO BID. The patient currently has a follow up appointment with Infectious Disease scheduled for May 18, this may be logistically difficult given timing of transfer to rehabilitation facility. We will to. Discharge Plan Discharge Plan Patient Disposition: SNF Transfer to: [facility] Provider Discharge Comment: Stable for discharge to fpc facility with close Infectious Disease follow up and suppressive antibiotics. Discharge orders & Medications Prescriptions: New cefadroxil 1 gram tablet 500 mg PO BID Qty: 60 1RF Continued (DME) Blood Glucose Test Strip See Rx Instructions .ROUTE .MEDSUPPLY Qty: 100 7RF Rx Instructions: Use to test blood glucose twice daily. (DME) lancets [BD Ultra Fine Lancets] 33 gauge misc See Rx Instructions .ROUTE .MEDSUPPLY Qty: 100 7RF Rx Instructions: Use to test blood glucose twice daily (DME) blood-glucose meter Misc See Rx Instructions .ROUTE .MEDSUPPLY Qty: 1 0RF Rx Instructions: Use to test blood glucose BID (DME) Accessibility Ramp See Rx Instructions .Route .MEDSUPPLY Qty: 1 0RF Rx Instructions: Please provide accommodations for safe and proper access. losartan 100 mg tablet 50 mg PO BID Qty: 180 4RF metoprolol tartrate 100 mg tablet 50 mg PO BID Qty: 180 4RF pravastatin 20 mg tablet 20 mg PO BEDTIME Qty: 90 3RF nystatin 100,000 unit/gram powder 1 applic topical BID Qty: 60 1RF Rx Instructions: After washing and completing drying skin folds, apply powder to skin folds BID metformin 1,000 mg tablet See Rx Instructions .ROUTE .COMPLEX Qty: 180 0RF Dose Instruction: TAKE 1 TABLET BY MOUTH TWICE DAILY Rx Instructions: TAKE 1 TABLET BY MOUTH TWICE DAILY memantine 10 mg tablet See Rx Instructions .ROUTE .COMPLEX Qty: 180 0RF Dose Instruction: TAKE 1 TABLET BY MOUTH TWICE DAILY Rx Instructions: TAKE 1 TABLET BY MOUTH TWICE DAILY amlodipine 10 mg tablet 10 mg PO DAILY Qty: 90 1RF multivitamin Tablet 1 tab PO DAILY cholecalciferol (vitamin D3) 25 mcg (1,000 unit) tablet 25 mcg PO BID cranberry 450 mg PO BID nitroglycerin 0.4 mg tablet, sublingual 0.4 mg sublingual Q5M PRN (Reason: chest pain) Qty: 20 3RF Rx Instructions: do not exceed 3 doses per episode (DME) Diabetic Shoes See Rx Instructions .Route .MEDSUPPLY Qty: 1 0RF Rx Instructions: 1 pair as directed; please fit patient for diabetic shoes. chlorthalidone 25 mg tablet 12.5 mg PO DAILY folic acid 1 mg tablet 1 mg PO DAILY magnesium oxide 400 mg magnesium tablet 400 mg PO DAILY cyanocobalamin (vitamin B-12) 1,000 mcg capsule 1,000 mcg PO DAILY sertraline 50 mg tablet 75 mg PO DAILY spironolactone 50 mg tablet 50 mg PO DAILY acetaminophen 500 mg capsule 1,000 mg PO DAILY ammonium lactate 12 % cream 1 applic topical DAILY Rx Instructions: to BLE for dryness Lactobacillus acidophilus 25 million cell Capsule 25,000,000 cell PO TIDWM Qty: 90 0RF triamcinolone acetonide 0.5 % Cream 1 applic topical TID Qty: 45 0RF rifampin 300 mg Capsule 600 mg PO DAILY Qty: 7 0RF Discontinued ceftriaxone 2 gram recon soln 2 g IV DAILY Follow up/Referrals: Doctor Estrella MD [Primary Care Provider, Medical] Discharge Health Status Multidrug resistant organism: No MDRO Diet/Activity/Treatments Diet: Carb-consistent/Diabetic Skin/Wound/Dressing Care Report to your healthcare provider any signs of infection, such as:: chills, fever, increased pain and unusual redness Visit Report/Discharge Packet Instructions: DI for Cellulitis -- Adult Stand Alone Forms: Patient Portal/API Discharge Data Primary Care Provider: Doctor Sameer
--- NOTE | 2025-05-17 12:44 | CM.DPC ---
DCP Cont. Reviewed EMR and team rounds for pt's medical status and updates. Pt has been medically cleared for discharge today to [facility]. They will transport at 2:00pm. The plan is confirmed that [facility] will work with the family to transition her into LTC with her Medicaid. No further CM needs are indicated at this time.
--- NOTE | 2025-05-17 15:20 | PC.NURSE ---
Report called to Alexandra at [facility] [phone]. PICC line dc'd intact, gauze with tegaderm placed. Patient declined full bath today before transport but changed her gown and brushed her hair. Patient handed her phone and systems designer to her daughter in law (following behind her).
== END 2025-05-17 14:50 | DRG 602 ==
LOC: ED 05-10 01:19 → AC 05-10 04:16
PROVIDERS: Family Medicine; Internal Medicine; Admitting Provider Internal Medicine; Emergency Provider Emergency Medicine; Family Provider Family Medicine; Referring Provider Emergency Medicine; Visit Provider Internal Medicine
DX: L03.115 Cellulitis of right lower limb (principal); G92.8 Other toxic encephalopathy; I10 Essential (primary) hypertension; E78.5 Hyperlipidemia, unspecified; G30.9 Alzheimer's disease, unspecified; F02.80 Dementia in other diseases classified elsewhere, unspecified severity, without behavioral disturbance, psychotic disturbance, mood disturbance, and anxiety; E03.9 Hypothyroidism, unspecified; E11.9 Type 2 diabetes mellitus without complications; Z87.891 Personal history of nicotine dependence; Z79.890 Hormone replacement therapy; Z66 Do not resuscitate; Z86.19 Personal history of other infectious and parasitic diseases; Z79.84 Long term (current) use of oral hypoglycemic drugs; Z95.828 Presence of other vascular implants and grafts
CPT/HCPCS: 36415; 70491; 71045; 80048; 80053; 80202; 82962; 83605; 84145; 85025; 85651; 86140; 87040; 87493; 93005; 94640; 94760; 97110; 97116; 97129; 97162; 97166; 97530; 99284; J0696; J1642; J1644; J1815; J2060; Q9967